=== PATIENT | female | born 1955 | race Caucasian/White ===

== ENCOUNTER 2017-07-10 12:24 | Inpatient (IN) | payer MEDICAID, SELFPAY ==
[2017-07-10] VITALS (14 sets, daily range): BP systolic 95–176; BP diastolic 57–115; PULSE 58–78; RESP 15–22; TEMP 36.6–36.7; O2SAT 92–100; BMI 22.5; BMI 22.6; BMI 23.3
--- NOTE | 2017-07-10 13:05 | EKG12_ITS ---
Test Reason : GEN ILLNESS Blood Pressure : / mmHG Vent. Rate : 078 BPM Atrial Rate : 078 BPM P-R Int : 140 ms QRS Dur : 092 ms QT Int : 360 ms P-R-T Axes : 077 -01 111 degrees QTc Int : 410 ms Normal sinus rhythm Lateral infarct , age undetermined Inferior infarct , age undetermined ST & T wave abnormality, consider anterior ischemia Abnormal ECG Confirmed by BETI BALLESTEROS, NATHAN ([id number]), website/blog editor MARGARET HUBBARD ([id number]) on 07/13/2017 2:49:39 PM Referred By: GET Confirmed By:NATHAN BANG MD
--- NOTE | 2017-07-10 13:14 | PCA ---
NO OLD EKG
[2017-07-10 13:31] LABS: Mucous, Urine 0 SEEN /hpf (<or=2+)
[2017-07-10 13:35] LABS: Color, Urine Yellow (Yellow); Glucose, Dipstick 1000 mg/dl (Normal); Ketone-Dipstick Negative (Negative); Leukocyte Esterase-Dipstick 25 /ul (Negative); Nitrite-Dipstick Negative (Negative); Occult Blood-Urine 250 /ul (Negative); Protein-Dipstick 500 mg/dl (Negative); Urine Bilirubin Dipstick Negative (Negative); Urine Clarity Clear (Clear); Urine Urobilinogen Normal (Normal)
[2017-07-10 13:40] LABS: Bedside Glucose > 500 mg/dL (70-110)
[2017-07-10 13:41] LABS: Bacteria RARE /hpf (None Seen); Red Blood Cells-Urine 5-10 SEEN /hpf (0-5); Squamous Epithelial Cells - UA 0-5 SEEN /hpf (5-10); White Blood Cells 0-5 SEEN /hpf (0-5)
[2017-07-10 13:50] LABS: AST(SGOT) 19 U/L (15-37); Alanine Aminotransfer ALT/SGPT 15 U/L (13-56); Albumin, Serum 2.8 g/dL (3.2-5.0); Alkaline Phosphatase 122 U/L (45-117); Bilirubin, Direct 0.11 mg/dL (0.00-0.30); Globulin 3.2 g/dL (2.2-4.2)
[2017-07-10 13:59] LABS: Absolute Lymphocyte Count 0.99 X10^3/ul (0.83-4.51); Absolute Neutrophil Count 6.1 X10^3/uL (2.0-7.7); Anion Gap 8 (5-15); BUN 60 mg/dL (7-18); BUN/Creat Ratio 33.7 RATIO (10-20); Basophil# 0.02 X10^3/uL; Basophil% 0.2 % (0-1); Chloride 91 mmol/L (98-107); Creatinine, Serum 1.78 mg/dL (0.55-1.02); EST Glomerular Filtration Rate 31 mL/min (>60); Eosinophil# 0.11 X10^3/uL; Eosinophils% 1.3 % (0-5); Est Glom Filt Rate - Afr Amer 37 mL/min (>60); Estimated Creatinine Clearance 23.24 ml/min; Glucose 844 mg/dL (74-106); Hemoglobin 14.2 g/dl (12.0-15.0); Lymphocyte # 0.99 X10^3/ul (4.0); Lymphocyte % 11.9 % (19-41); Mean Corp Hgb Conc 34.6 g/gl (32-36); Mean Corpuscular Hgb 30.4 pg (27.0-32.0); Mean Corpuscular Volume 87.8 fL (81-99); Mean Platelet Vol. 10.1 fl (6.2-12.0); Monocyte# 0.97 X10^3/uL; Monocyte% 11.7 % (0-10); Neutrophil # 6.14 X10^3/uL (2.7-7.7); Neutrophil % 74.1 % (47-70); Platelet Count 120 K/mm3 (150-450); Potassium 5.5 mmol/L (3.5-5.1); RBC Distribution Width CV 12.2 % (11.6-14.6); RBC Distribution Width SD 38.9 fl (35.1-43.9); Red Blood Count 4.67 M/mm3 (4.2-5.4); Sodium Level 121 mmol/L (136-145); White Blood Count 8.3 K/mm3 (4.4-11.0)
--- NOTE | 2017-07-10 13:59 | ED.RN ---
lab called glucose [address] lawrence
[2017-07-10 14:00] LABS: POSITIVE COUNT NO; POSITIVE DIFFERENTIAL NO; POSITIVE MORPHOLOGY NO
--- NOTE | 2017-07-10 14:11 | ED.VISSUMM ---
- ER Visit Summary Date of Service: 07/10/17 Chief Complaint: Several vague symptoms and high blood sugar History of Present Illness: The patient is a 62 F resents because she is not felt well. She reports dyspnea on exertion for the past couple of days as well as shortness of breath at rest. She also complains of swelling of her lower extremities. She denies any chest discomfort of any type. She denies fever, chills night sweats. Does complain of blurred vision today. She does complain of polyuria, polydipsia, nocturia and urgency. She is uncertain whether she has had weight loss. She denies orthopnea or PND. She denies any double vision or loss of vision. She denies runny nose, postnasal drainage, sore throat or earache. She denies any abdominal pain. She denies hematemesis, melena hematochezia. She has not seen a physician in 20 years. She is scheduled to see Dr. Godoy in the future. She states she is diet-controlled diabetic and has history of hypertension. Past surgical history cholecystectomy, hysterectomy and ?2. Physical Examination: Is an thin elderly woman who appears in no obvious distress. Blood pressure is 158/83. HEENT exam is markable dry mucosa. Heart is regular without murmur, gallop or rub. S1 and S2 are normal. Lungs are clear to auscultation with good movement of air bilaterally. Abdomen is soft and nontender. There is no guarding or peritoneal findings. There is no palpable pulsatile mass. There is no abdominal bruit. Moraes sign is negative. Negative Rovsing sign. There is no evidence of inguinal or umbilical hernia. There are well-healed scars noted. She does have pitting edema to the mid thigh. Patient is alert and oriented ?3. Motor is 5 over 5. Sensory is intact. DTRs are symmetric with no clonus or Babinski sign. Cranial 2 through 12 are intact. Cerebellar testing is normal. Test Results: She reveals ST-T wave changes V1 and V2 and artifact. Rhythm is sinus with a rate of 78. CBC is unremarkable. BMP is remarkable for sodium 121 and represents a pseudohyponatremia secondary to glucose of 844. BUN is 60 with a creatinine 1.78. UA is remarkable for leukoesterase and blood negative nitrites and no pyuria. Troponin is 2.39. Emergency Department Course and Treatment: Patient has symptoms of hyperglycemia. Will initiate DKA workup and will rule out cardiac ischemia based on her symptoms. Treatment Plan: The hospitalist was made aware of patient. Will start insulin drip. Case was discussed with Dr. Case. He requested Lovenox 1 mg/kg since there is no contraindication. Disposition: Admit ICU/CCU Impression: 1. Non-ST elevation ND 2. Hyperglycemia, blood sugar 844 3. Prerenal azotemia with AK I 4. Dehydration 5. Pseudohyponatremia This note was generated with [employer] dictation software. It may contain incorrect words, spelling, and punctuation that were not noted in review of the chart prior to signing ED Disposition - Plan for ED Patient: Chief Complaint: General Illness Referrals: Care Physician,No Primary [Primary Care Provider] -
--- NOTE | 2017-07-10 14:18 | RAD_ITS ---
STUDY: X-RAY CHEST REASON FOR EXAM: Female, 62 years old. Weakness. Visual disturbance. Hyperglycemia. TECHNIQUE: Single AP portable view of the chest. COMPARISON: None. FINDINGS: EKG electrodes are seen. Hyperinflation. The lungs are clear. There is no demonstrated pleural abnormality. Normal size heart. Normal mediastinum and jace. Normal visualized pulmonary arteries. There is atherosclerotic calcification of the aortic arch with tortuosity. Normal visualized thoracic spine. Normal visualized ribs, clavicles, and shoulders. There is no demonstrated abnormality of the visualized soft tissue structures of the upper abdomen. RAD/Chest 1 View (Portable) IMPRESSION: Hyperinflation. The lungs are clear. Electronically Signed: David Flores MD at 14:46 EST Tel [phone], Service support ,
[2017-07-10] MEDS: 0.9% Normal Saline 1,000 ML 1000 ML IV (14:46)
--- NOTE | 2017-07-10 14:47 | ED.RN ---
per dr joseph insulin drip stopped until 1 full liter of fluid is infused
--- NOTE | 2017-07-10 15:55 | PCM.HP.STD ---
Problem List (1) Hypertension Status: Chronic (2) Type 2 diabetes mellitus Status: Chronic History of Present Illness Date of Admission: 07/10/17 Chief Complaint: Not feeling well The patient is a 62 year old F who presents the ER with general non-specific complaints of not feeling well. She states she has noticed increased shortness of breath with exertion, swelling of lower extremities and fatigue. She has not seen a doctor in over 20 years. She states she saw an search analyst in the past who told her she might have diabetes. She then checked her blood sugars at home and states they normally run in the 200s and states her diabetes has been diet controlled. She has not seen a doctor due to insurance reasons. She now has Medicaid and is scheduled to establish with Dr. Godoy, PCP. She denies chest pain. Denies nausea, vomiting. Denies recent illness. States she has intermittent diarrhea. She states she was told she had high blood pressure in the past but was never on any medication regimen. Yesterday she reports her blood sugar was not able to be read by her home machine. She reports blurred vision and not feeling right during this time. This was concerning to her and she decided to seek medical attention. She denies any other prior medical history. She is a pack per day smoker and has smoked for approximately 40 years. Past Medical History Past Medical History (Chronic Problems): Chronic Problems Hypertension (Chronic) Type 2 diabetes mellitus (Chronic) Allergies ibuprofen Allergy (Verified 07/10/17 12:30) Anaphylaxis Iodinated Contrast- Oral and IV Dye [CONTRASTS] Allergy (Verified 07/10/17 12:30) Anaphylaxis Penicillins Allergy (Verified 07/10/17 12:30) Hives Home Medications: Ambulatory Orders Medication Instructions Recorded NK [NK] 07/10/17 Surgical History: cholecystectomy, hysterectomy Psychiatric History: No pertinent psych hx OSD CLERK History: No pertinent OSD CLERK history Lives: With Family Smoking Status: Current every day smoker Tobacco Use: Cigarettes - 1 PPD Alcohol: None Drugs: None - *Family History Maternal History Items: High Cholesterol, Hypertension Paternal History Items: Diabetes Review of Systems Constitutional: Reports: Fatigue. Denies: Chills, Fever Eyes: Reports: Blurred vision HEENT: Denies: Head Aches, Sinus Congestion, Sinus Drainage Cardiovascular: Reports: Edema - BLLE. Denies: Chest Pain, Palpitations Respiratory: Reports: Shortness of breath upon exertion. Denies: Cough, Sputum production, Wheezing Gastrointestinal: Reports: Diarrhea - Intermittent. Denies: Abdominal Pain, Constipation, Nausea, Melena, Vomiting Genitourinary: Denies: Dysuria, Frequency Musculoskeletal: Denies: Joint Pain, Joint Tenderness Neurological: Denies: Numbness, Tingling, Focal weakness Psychiatric: Denies: Anxiety, Depression, Homicidal Ideations, Suicidal Ideations Hematologic/ Lymphatic: Denies: Easy Bruising, Easy Bleeding VTE Information - Inpt Only VTE Present on Admission: No VTE Mechan Device Prophylaxis: None VTE Pharm Prophylaxis ordered?: Yes - Physical Exam General: Alert, Oriented x3, Cooperative, No apparent distress HEENT: Atraumatic, PERRLA, EOMI, Normocephalic Oral: Dry Mucosa, - - Poor dentition Neck: Supple, No JVD, Negative Carotid Bruits Lungs: Clear to auscultation, Diminished Cardiovascular: Regular rate, Regular Rhythm, Normal S1, Normal S2, No murmurs Abdomen: Bowel Sounds Present, Soft, Non Tender, Non-Distended Extremities: No clubbing, No cyanosis, Edema - +1 Bilateral lower extremity edema which extends to mid thigh Skin: No rashes, No breakdown Musculoskeletal: No Tenderness to Palpation of Joints or Extremities Neurological: Cranial nerves II-XII grossly intact, Neuro grossly intact Psych/Mental Status: Normal Affect, Appropriate Vital Signs Temp Pulse Resp BP Pulse Ox 98.0 F 77 18 176/115 H 97 07/10/17 12:25 07/10/17 15:50 07/10/17 15:50 07/10/17 15:50 07/10/17 15:50 Oxygen Delivery Method Room Air Weight: 52.4 kg Body Mass Index (BMI) 22.5 Finger Stick Blood Glucose 600 Laboratory Tests Past 24 Hrs 07/10/17 07/10/17 07/10/17 13:20 13:20 13:20 WBC 8.3 RBC 4.67 Hgb 14.2 Hct 41.0 MCV 87.8 MCH 30.4 MCHC 34.6 RDW 12.2 RDW Differential 38.9 Plt Count 120 L MPV 10.1 Immature Gran % (Auto) 0.800 Neut % (Auto) 74.1 H Lymph % (Auto) 11.9 L [place] % (Auto) 11.7 H Eos % (Auto) 1.3 Baso % (Auto) 0.2 Absolute Neuts (auto) 6.1 Absolute Lymphs (auto) 0.99 Total Counted Not Reportable Sodium 121 L Potassium 5.5 H Chloride 91 L Carbon Dioxide 22.0 Anion Gap 8 BUN 60 H Creatinine 1.78 H Estim Creat Clear Calc 23.24 Est GFR (MDRD) Af Amer 37 L Est GFR (MDRD) Non-Af 31 L BUN/Creatinine Ratio 33.7 H Glucose 844 H* Calcium 8.0 L Total Bilirubin Direct Bilirubin AST ALT Alkaline Phosphatase Troponin I 2.39 H* Total Protein Albumin Globulin Urine Color Urine Clarity Urine pH Ur Specific [place] Urine Protein Urine Glucose (UA) Urine Ketones Urine Occult Blood Urine Nitrite Urine Bilirubin Urine Urobilinogen Ur Leukocyte Esterase Urine RBC Urine WBC Ur Squamous Epith Cells Urine Bacteria Urine Mucus Acetone Level NEGATIVE 07/10/17 07/10/17 13:20 13:20 WBC RBC Hgb Hct MCV MCH MCHC RDW RDW Differential Plt Count MPV Immature Gran % (Auto) Neut % (Auto) Lymph % (Auto) [place] % (Auto) Eos % (Auto) Baso % (Auto) Absolute Neuts (auto) Absolute Lymphs (auto) Total Counted Sodium Potassium Chloride Carbon Dioxide Anion Gap BUN Creatinine Estim Creat Clear Calc Est GFR (MDRD) Af Amer Est GFR (MDRD) Non-Af BUN/Creatinine Ratio Glucose Calcium Total Bilirubin 0.30 Direct Bilirubin 0.11 AST 19 ALT 15 Alkaline Phosphatase 122 H Troponin I Total Protein 6.0 L Albumin 2.8 L Globulin 3.2 Urine Color Yellow Urine Clarity Clear Urine pH 6.0 Ur Specific [place] 1.010 Urine Protein 500 H Urine Glucose (UA) 1000 H Urine Ketones Negative Urine Occult Blood 250 H Urine Nitrite Negative Urine Bilirubin Negative Urine Urobilinogen Normal Ur Leukocyte Esterase 25 H Urine RBC 5-10 SEEN Urine WBC 0-5 SEEN Ur Squamous Epith Cells 0-5 SEEN Urine Bacteria RARE Urine Mucus 0 SEEN Acetone Level POC Glucose 07/10/17 13:35 POC Glucose > 500 H* Assessment/Plan 1. [id number] troponin 2.39. Patient denies chest pain. EKG in emergency room sinus rhythm with ST T changes. Cardiology consulted from ER. Trend enzymes. Lovenox weight-based 1 mg/kg. Plans for cardiac catheterization when glucose is stable. Check lipid panel in a.m. Initiate aspirin, statin, beta-oneal. Patient was loaded with Plavix ?1. Obtain echocardiogram. 2. Uncontrolled type 2 diabetes mellitus-not in DKA. Blood glucose 844 on admission. Insulin drip initiated in ER. Continue q. hour Accu-Cheks and insulin drip per protocol. Continue IV fluids. Nutrition consult. Check HA1C. Begin Levemir 20 units twice daily. 3. Suspected acute kidney injury-creatinine 1.78. No previous labs for comparison. Patient is dehydrated with a BUN/ creat ratio of 33. Continue IVF. Monitor BMP. 4. Hyponatremia-suspected pseudohyponatremia secondary to hyperglycemia. Monitor BMP. Continue IV fluids. 5. Hypertension-elevated on admission 150-170 systolically. Not on home regimen. Patient was started on metoprolol 25 mg twice daily. Continue to monitor. DVT [id number] Lovenox subcu 1mg/kg This patient was seen by NICHOLAS Toledo under the supervision of Dr. Chavez.
--- NOTE | 2017-07-10 16:04 | NURSING ---
ICU 4 ACUTE NSTEMI, HYPEROEOLAR NON KETOTIC HYPERGLYCEMIA HERO
--- NOTE | 2017-07-10 16:21 | HP.PCM_ITS ---
Problem List (1) Hypertension Status: Chronic (2) Type 2 diabetes mellitus Status: Chronic History of Present Illness Date of Admission: 07/10/17 Chief Complaint: Not feeling well The patient is a 62 year old F who presents the ER with general non-specific complaints of not feeling well. She states she has noticed increased shortness of breath with exertion, swelling of lower extremities and fatigue. She has not seen a doctor in over 20 years. She states she saw an coroner transport technician in the past who told her she might have diabetes. She then checked her blood sugars at home and states they normally run in the 200s and states her diabetes has been diet controlled. She has not seen a doctor due to insurance reasons. She now has Medicaid and is scheduled to establish with Dr. Godoy, PCP. She denies chest pain. Denies nausea, vomiting. Denies recent illness. States she has intermittent diarrhea. She states she was told she had high blood pressure in the past but was never on any medication regimen. Yesterday she reports her blood sugar was not able to be read by her home machine. She reports blurred vision and not feeling right during this time. This was concerning to her and she decided to seek medical attention. She denies any other prior medical history. She is a pack per day smoker and has smoked for approximately 40 years. Past Medical History Past Medical History (Chronic Problems): Chronic Problems Hypertension (Chronic) Type 2 diabetes mellitus (Chronic) Allergies ibuprofen Allergy (Verified 07/10/17 12:30) Anaphylaxis Iodinated Contrast- Oral and IV Dye [CONTRASTS] Allergy (Verified 07/10/17 12:30 ) Anaphylaxis Penicillins Allergy (Verified 07/10/17 12:30) Hives Home Medications: Ambulatory Orders Medication Instructions Recorded NK [NK] 07/10/17 Surgical History: cholecystectomy, hysterectomy Psychiatric History: No pertinent psych hx CORN CHIP MAKER History: No pertinent CORN CHIP MAKER history Lives: With Family Smoking Status: Current every day smoker Tobacco Use: Cigarettes - 1 PPD Alcohol: None Drugs: None - *Family History Maternal History Items: High Cholesterol, Hypertension Paternal History Items: Diabetes Review of Systems Constitutional: Reports: Fatigue. Denies: Chills, Fever Eyes: Reports: Blurred vision HEENT: Denies: Head Aches, Sinus Congestion, Sinus Drainage Cardiovascular: Reports: Edema - BLLE. Denies: Chest Pain, Palpitations Respiratory: Reports: Shortness of breath upon exertion. Denies: Cough, Sputum production, Wheezing Gastrointestinal: Reports: Diarrhea - Intermittent. Denies: Abdominal Pain, Constipation, Nausea, Melena, Vomiting Genitourinary: Denies: Dysuria, Frequency Musculoskeletal: Denies: Joint Pain, Joint Tenderness Neurological: Denies: Numbness, Tingling, Focal weakness Psychiatric: Denies: Anxiety, Depression, Homicidal Ideations, Suicidal Ideations Hematologic/ Lymphatic: Denies: Easy Bruising, Easy Bleeding VTE Information - Inpt Only VTE Present on Admission: No VTE Mechan Device Prophylaxis: None VTE Pharm Prophylaxis ordered?: Yes - Physical Exam General: Alert, Oriented x3, Cooperative, No apparent distress HEENT: Atraumatic, PERRLA, EOMI, Normocephalic Oral: Dry Mucosa, - - Poor dentition Neck: Supple, No JVD, Negative Carotid Bruits Lungs: Clear to auscultation, Diminished Cardiovascular: Regular rate, Regular Rhythm, Normal S1, Normal S2, No murmurs Abdomen: Bowel Sounds Present, Soft, Non Tender, Non-Distended Extremities: No clubbing, No cyanosis, Edema - +1 Bilateral lower extremity edema which extends to mid thigh Skin: No rashes, No breakdown Musculoskeletal: No Tenderness to Palpation of Joints or Extremities Neurological: Cranial nerves II-XII grossly intact, Neuro grossly intact Psych/Mental Status: Normal Affect, Appropriate Vital Signs Temp Pulse Resp BP Pulse Ox 98.0 F 77 18 176/115 H 97 07/10/17 12:25 07/10/17 15:50 07/10/17 15:50 07/10/17 15:50 07/10/17 15:50 Oxygen Delivery Method Room Air Weight: 52.4 kg Body Mass Index (BMI) 22.5 Finger Stick Blood Glucose 600 Laboratory Tests Past 24 Hrs 07/10/17 07/10/17 07/10/17 13:20 13:20 13:20 WBC 8.3 RBC 4.67 Hgb 14.2 Hct 41.0 MCV 87.8 MCH 30.4 MCHC 34.6 RDW 12.2 RDW Differential 38.9 Plt Count 120 L MPV 10.1 Immature Gran % (Auto) 0.800 Neut % (Auto) 74.1 H Lymph % (Auto) 11.9 L [place] % (Auto) 11.7 H Eos % (Auto) 1.3 Baso % (Auto) 0.2 Absolute Neuts (auto) 6.1 Absolute Lymphs (auto) 0.99 Total Counted Not Reportable Sodium 121 L Potassium 5.5 H Chloride 91 L Carbon Dioxide 22.0 Anion Gap 8 BUN 60 H Creatinine 1.78 H Estim Creat Clear Calc 23.24 Est GFR (MDRD) Af Amer 37 L Est GFR (MDRD) Non-Af 31 L BUN/Creatinine Ratio 33.7 H Glucose 844 H* Calcium 8.0 L Total Bilirubin Direct Bilirubin AST ALT Alkaline Phosphatase Troponin I 2.39 H* Total Protein Albumin Globulin Urine Color Urine Clarity Urine pH Ur Specific [place] Urine Protein Urine Glucose (UA) Urine Ketones Urine Occult Blood Urine Nitrite Urine Bilirubin Urine Urobilinogen Ur Leukocyte Esterase Urine RBC Urine WBC Ur Squamous Epith Cells Urine Bacteria Urine Mucus Acetone Level NEGATIVE 07/10/17 07/10/17 13:20 13:20 WBC RBC Hgb Hct MCV MCH MCHC RDW RDW Differential Plt Count MPV Immature Gran % (Auto) Neut % (Auto) Lymph % (Auto) [place] % (Auto) Eos % (Auto) Baso % (Auto) Absolute Neuts (auto) Absolute Lymphs (auto) Total Counted Sodium Potassium Chloride Carbon Dioxide Anion Gap BUN Creatinine Estim Creat Clear Calc Est GFR (MDRD) Af Amer Est GFR (MDRD) Non-Af BUN/Creatinine Ratio Glucose Calcium Total Bilirubin 0.30 Direct Bilirubin 0.11 AST 19 ALT 15 Alkaline Phosphatase 122 H Troponin I Total Protein 6.0 L Albumin 2.8 L Globulin 3.2 Urine Color Yellow Urine Clarity Clear Urine pH 6.0 Ur Specific [place] 1.010 Urine Protein 500 H Urine Glucose (UA) 1000 H Urine Ketones Negative Urine Occult Blood 250 H Urine Nitrite Negative Urine Bilirubin Negative Urine Urobilinogen Normal Ur Leukocyte Esterase 25 H Urine RBC 5-10 SEEN Urine WBC 0-5 SEEN Ur Squamous Epith Cells 0-5 SEEN Urine Bacteria RARE Urine Mucus 0 SEEN Acetone Level POC Glucose 07/10/17 13:35 POC Glucose > 500 H* Assessment/Plan 1. [id number] troponin 2.39. Patient denies chest pain. EKG in emergency room sinus rhythm with ST T changes. Cardiology consulted from ER. Trend enzymes. Lovenox weight-based 1 mg/kg. Plans for cardiac catheterization when glucose is stable. Check lipid panel in a.m. Initiate aspirin, statin, beta-oneal. Patient was loaded with Plavix ?1. Obtain echocardiogram. 2. Uncontrolled type 2 diabetes mellitus-not in DKA. Blood glucose 844 on admission. Insulin drip initiated in ER. Continue q. hour Accu-Cheks and insulin drip per protocol. Continue IV fluids. Nutrition consult. Check HA1C. Begin Levemir 20 units twice daily. 3. Suspected acute kidney injury-creatinine 1.78. No previous labs for comparison. Patient is dehydrated with a BUN/ creat ratio of 33. Continue IVF. Monitor BMP. 4. Hyponatremia-suspected pseudohyponatremia secondary to hyperglycemia. Monitor BMP. Continue IV fluids. 5. Hypertension-elevated on admission 150-170 systolically. Not on home regimen. Patient was started on metoprolol 25 mg twice daily. Continue to monitor. DVT [id number] Lovenox subcu 1mg/kg This patient was seen by NICHOLAS Toledo under the supervision of Dr. Chavez.
--- NOTE | 2017-07-10 16:53 | ECHOD_ITS ---
Reason For Study: S/P NC Procedure This was a 2D Doppler, Color Flow transthoracic echocardiogram. Exam performed portable in ICU/CCU. Left Ventricle Normal LV size. Moderately severe segmental systolic dysfunction (see wall motion). The estimated ejection fraction is 30 %. [place] : Akinetic. Mid-anteroseptal : Akinetic. There is moderate to severe global hypokinesis of the left ventricle. Right Ventricle Normal RV size. Normal systolic function. Atria Normal left atrium. Normal right atrium. Mitral Valve Normal mitral valve. Mild (1+) eccentric mitral valve insufficiency. Tricuspid Valve Normal tricuspid valve. Mild (1+) tricuspid valve insufficiency. Pulmonary artery systolic pressure is 31 mmHg. Aortic Valve Trisinus/trileaflet aortic valve. Pulmonic Valve The pulmonic valve is not well visualized. Great Vessels Normal aortic root. The pulmonary artery is normal size. Normal inferior vena cava. Pericardium/Pleural No pericardial effusion. MMode/2D Measurements & Calculations LVIDd: 4.2 cm IVSd: 1.0 cm Ao root diam: 2.6 cm LVIDs: 3.4 cm LVPWd: 1.1 cm LA dimension: 4.0 cm RVDd: 2.7 cm FS: 20.5 % LAV(MOD-bp): 68.7 ml LA A4 area: 20.1 cm2 RA A4 area: 12.6 cm2 LAV(MOD-bp) Indexed: 45.6 ml/m2 LAV(MOD-sp2): 64.0 ml LAV(MOD-sp4): 62.9 ml Time Measurements MV dec time: 0.17 sec Doppler Measurements & Calculations MV E max quinn: 102.7 cm/sec Lat Peak E' Quinn: 7.3 cm/sec Med Peak E' [place]: 6.0 cm/sec MV A max quinn: 100.0 cm/sec E/E' lat: 14.0 E/E' med: 17.2 MV E/A: 1.0 Ao V2 max: 117.2 cm/sec LV V1 max: 74.0 cm/sec PA V2 max: 69.5 cm/sec Ao max P.5 mmHg LV V1 max P.2 mmHg TR max quinn: 254.7 cm/sec TR max P.1 mmHg Interpretation Summary Normal LV size. Moderately severe segmental systolic dysfunction (see wall motion). The estimated ejection fraction is 30 %. Mild (1+) eccentric mitral valve insufficiency. Pulmonary artery systolic pressure is 31 mmHg. Ordering Physician: Abdiaziz Chavez Referring Physician: CAN PCP Performed By: Alcira Torres, GEOVANNI, RVT
[2017-07-10 17:20] LABS: Bedside Glucose > 500 mg/dL (70-110)
--- NOTE | 2017-07-10 17:39 | PCM.CONS.C ---
Reason for Consult Date of Consultation: 07/10/17 Reason for Consultation: Abnormal cardiac enzymes. History of Present Illness: The patient is a 62 year old F who presents the ER with general non-specific complaints of not feeling well. She states she has noticed increased shortness of breath with exertion, swelling of lower extremities and fatigue. She has not seen a doctor in over 20 years. She states she saw an return to factory clerk in the past who told her she might have diabetes. She then checked her blood sugars at home and states they normally run in the 200s and states her diabetes has been diet controlled. She denies chest pain. Denies nausea, vomiting. Denies recent illness. States she has intermittent diarrhea. She states she was told she had high blood pressure in the past but was never on any medication regimen. Yesterday she reports her blood sugar was not able to be read by her home machine. She reports blurred vision and not feeling right during this time. This was concerning to her and she decided to seek medical attention. Therefore presented to the emergency room and was noted to have a markedly abnormal blood sugar and EKG as well as cardiac enzymes. She has had no dizziness presyncope or syncope. Cardiology was called to assist in evaluation and management. 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 Denies: Fever, Night Sweats Cardiovascular: Reports: Shortness of Breath. Denies: Chest Discomfort, Orthopnea, PND, Peripheral Edema, Palpitations, Lightheadedness, Dizziness, Near Syncope, Syncope Respiratory: Denies: Cough, Sputum Production, Hemoptysis Gastrointestinal: Denies: Hematemesis, Hematochezia, Melena Genitourinary: Denies: Dysuria, Hematuria Skin: Denies: Rash Endocrine: Reports: Unexplained Weight Loss Subjectve: Middle aged lady in no apparent distress Objective: Vital Signs Temp Pulse Resp BP Pulse Ox 98.0 F 74 18 176/115 H 97 07/10/17 12:25 07/10/17 16:52 07/10/17 15:50 07/10/17 15:50 07/10/17 15:50 Oxygen Delivery Method Room Air Weight: 118 lb 13.266 oz Body Mass Index (BMI) 23.3 General: Awake, Alert, Oriented x 3 HEENT: PERRL, EOMI, Sclera Non Icteric Neck: Supple, Good ROM, No Lymph Node Enlargement Lungs: Clear to auscultation Cardiovascular: Regular Rhythm, Normal S1, Normal S2, No Murmurs, No Rubs, No Gallops Vascular: No Carotid Bruits, Normal Femoral Pulses, Normal Radial Pulses, Normal Dorsalis Pedal Pulse, Normal Posterior Tibial Pulses Abdomen: Bowel Sounds Present, Soft, Non Tender, No HSM, No Organomegaly Extremities: No Cyanosis, No Clubbing, No edema Neurological: No Focal Motor or Sensory Deficit Rhythm: EKG: Normal sinus rhythm with T-wave inversions noted in V1 and V2. Assessment/Plan 1. Non-ST elevation myocardial infarction. She presents with uncontrolled diabetes mellitus and is noted to have EKG changes as well as cardiac enzymes compatible with a non-ST elevation myocardial infarction. At this time the primary aim will be to control her blood sugar appropriately hydrate her until her renal function has improved and stabilized and then we will consider a cardiac catheterization. In the meantime she is being loaded with Plavix, treated with aspirin, and beta-oneal. She has listed a dye allergy which she said she experienced 40 years ago. In all likelihood it was not low molecular weight based contrast agent. Recommendations would be made in a.m. Regarding timing of the cardiac catheterization. The above has been discussed with the patient as well as the nursing staff. 2. Hypertension Her blood pressure is noted to be uncontrolled at this time. After appropriate hydration she will be started on an RADHA inhibitor. At this particular time the beta-oneal can be initiated and she can be followed. Thank you for allowing me to participate in the care of your patient. Please don't hesitate to call if any issues arise
--- NOTE | 2017-07-10 17:47 | CON.PCM_ITS ---
Reason for Consult Date of Consultation: 07/10/17 Reason for Consultation: Abnormal cardiac enzymes. History of Present Illness: The patient is a 62 year old F who presents the ER with general non-specific complaints of not feeling well. She states she has noticed increased shortness of breath with exertion, swelling of lower extremities and fatigue. She has not seen a doctor in over 20 years. She states she saw an parcel post clerk in the past who told her she might have diabetes. She then checked her blood sugars at home and states they normally run in the 200s and states her diabetes has been diet controlled. She denies chest pain. Denies nausea, vomiting. Denies recent illness. States she has intermittent diarrhea. She states she was told she had high blood pressure in the past but was never on any medication regimen. Yesterday she reports her blood sugar was not able to be read by her home machine. She reports blurred vision and not feeling right during this time. This was concerning to her and she decided to seek medical attention. Therefore presented to the emergency room and was noted to have a markedly abnormal blood sugar and EKG as well as cardiac enzymes. She has had no dizziness presyncope or syncope. Cardiology was called to assist in evaluation and management. 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 Denies: Fever, Night Sweats Cardiovascular: Reports: Shortness of Breath. Denies: Chest Discomfort, Orthopnea, PND, Peripheral Edema, Palpitations, Lightheadedness, Dizziness, Near Syncope, Syncope Respiratory: Denies: Cough, Sputum Production, Hemoptysis Gastrointestinal: Denies: Hematemesis, Hematochezia, Melena Genitourinary: Denies: Dysuria, Hematuria Skin: Denies: Rash Endocrine: Reports: Unexplained Weight Loss Subjectve: Middle aged lady in no apparent distress Objective: Vital Signs Temp Pulse Resp BP Pulse Ox 98.0 F 74 18 176/115 H 97 07/10/17 12:25 07/10/17 16:52 07/10/17 15:50 07/10/17 15:50 07/10/17 15:50 Oxygen Delivery Method Room Air Weight: 118 lb 13.266 oz Body Mass Index (BMI) 23.3 General: Awake, Alert, Oriented x 3 HEENT: PERRL, EOMI, Sclera Non Icteric Neck: Supple, Good ROM, No Lymph Node Enlargement Lungs: Clear to auscultation Cardiovascular: Regular Rhythm, Normal S1, Normal S2, No Murmurs, No Rubs, No Gallops Vascular: No Carotid Bruits, Normal Femoral Pulses, Normal Radial Pulses, Normal Dorsalis Pedal Pulse, Normal Posterior Tibial Pulses Abdomen: Bowel Sounds Present, Soft, Non Tender, No HSM, No Organomegaly Extremities: No Cyanosis, No Clubbing, No edema Neurological: No Focal Motor or Sensory Deficit Rhythm: EKG: Normal sinus rhythm with T-wave inversions noted in V1 and V2. Assessment/Plan 1. Non-ST elevation myocardial infarction. She presents with uncontrolled diabetes mellitus and is noted to have EKG changes as well as cardiac enzymes compatible with a non-ST elevation myocardial infarction. At this time the primary aim will be to control her blood sugar appropriately hydrate her until her renal function has improved and stabilized and then we will consider a cardiac catheterization. In the meantime she is being loaded with Plavix, treated with aspirin, and beta- oneal. She has listed a dye allergy which she said she experienced 40 years ago. In all likelihood it was not low molecular weight based contrast agent. Recommendations would be made in a.m. Regarding timing of the cardiac catheterization. The above has been discussed with the patient as well as the nursing staff. 2. Hypertension Her blood pressure is noted to be uncontrolled at this time. After appropriate hydration she will be started on an RADHA inhibitor. At this particular time the beta-oneal can be initiated and she can be followed. Thank you for allowing me to participate in the care of your patient. Please don't hesitate to call if any issues arise
[2017-07-10 17:48] LABS: Hemoglobin A1c 14.9 % (4.2-6.3)
[2017-07-10 17:53] LABS: Anion Gap 6 (5-15); BUN 57 mg/dL (7-18); BUN/Creat Ratio 36.1 RATIO (10-20); Calcium,Total 7.5 mg/dL (8.5-10.1); Chloride 98 mmol/L (98-107); Creatinine, Serum 1.58 mg/dL (0.55-1.02); EST Glomerular Filtration Rate 35 mL/min (>60); Est Glom Filt Rate - Afr Amer 42 mL/min (>60); Estimated Creatinine Clearance 31.01 ml/min; Glucose 670 mg/dL (74-106); Potassium 4.9 mmol/L (3.5-5.1); Sodium Level 127 mmol/L (136-145)
[2017-07-10] MEDS: Aspirin 81 MG TAB.CHEW PO (18:03)
[2017-07-10] MEDS: 0.9% Normal Saline 1,000 ML 999 ML IV ×2 (18:03→18:54)
[2017-07-10] MEDS: Clopidogrel Bisulfate 300 MG Tablet PO (18:04)
[2017-07-10] MEDS: Metoprolol Tartrate 25 MG Tablet PO (18:06)
[2017-07-10] MEDS: 0.9% Normal Saline 1,000 ML 175 ML IV (20:00)
[2017-07-10 20:05] LABS: Bedside Glucose 442 mg/dL (70-110)
[2017-07-10 20:13] LABS: M R Staph aureus DNA By PCR Negative (Negative); Probe Check PASS; Specimen Processing Control PASS
[2017-07-10 20:53] LABS: Anion Gap 9 (5-15); BUN 55 mg/dL (7-18); BUN/Creat Ratio 38.5 RATIO (10-20); Chloride 103 mmol/L (98-107); Creatinine, Serum 1.43 mg/dL (0.55-1.02); EST Glomerular Filtration Rate 39 mL/min (>60); Est Glom Filt Rate - Afr Amer 48 mL/min (>60); Estimated Creatinine Clearance 34.26 ml/min; Glucose 395 mg/dL (74-106); Potassium 4.1 mmol/L (3.5-5.1); Sodium Level 133 mmol/L (136-145)
[2017-07-10] MEDS: Atorvastatin Calcium 40 MG Tablet PO (21:05)
[2017-07-10] MEDS: Acetaminophen 325 MG Tablet 650 MG PO (21:06)
[2017-07-11] VITALS (29 sets, daily range): BP systolic 98–151; BP diastolic 58–100; PULSE 56–76; RESP 13–26; TEMP 36.5–37.6; O2SAT 97–100
[2017-07-11] MEDS: 0.9% Normal Saline 1,000 ML 175 ML IV ×3 (01:56→14:24)
[2017-07-11] MEDS: 0.9% NaCl Peripheral Flush Adult/Peds IV ×2 (02:01→12:18)
[2017-07-11 02:26] LABS: Bedside Glucose 127 mg/dL (70-110)
[2017-07-11 04:02] LABS: Absolute Lymphocyte Count 1.82 X10^3/ul (0.83-4.51); Basophil# 0.03 X10^3/uL; Basophil% 0.4 % (0-1); Eosinophil# 0.24 X10^3/uL; Eosinophils% 2.9 % (0-5); Hematocrit 32.4 % (37-47); International Normalized Ratio 1.2; Lymphocyte # 1.82 X10^3/ul (4.0); Lymphocyte % 22.1 % (19-41); Mean Corpuscular Volume 88.8 fL (81-99); Monocyte# 1.09 X10^3/uL; Monocyte% 13.2 % (0-10); Neutrophil % 60.7 % (47-70); Platelet Count 118 K/mm3 (150-450); Prothrombin Time (Protime)PT. 15.5 SECONDS (11.7-14.9); RBC Distribution Width SD 37.9 fl (35.1-43.9); Red Blood Count 3.65 M/mm3 (4.2-5.4); White Blood Count 8.2 K/mm3 (4.4-11.0)
[2017-07-11 04:03] LABS: Hemoglobin 11.4 g/dl (12.0-15.0); Mean Corp Hgb Conc 35.2 g/gl (32-36); Mean Corpuscular Hgb 31.2 pg (27.0-32.0); POSITIVE COUNT NO; POSITIVE DIFFERENTIAL NO; POSITIVE MORPHOLOGY NO; Partial Thromboplast Time 25.4 Seconds (24.1-36.2)
--- NOTE | 2017-07-11 04:30 | NURSING ---
Bladder scan complete and showing >999ml. Pt up to bedside commode and voids 300ml, repeat bladder scan again showing >999ml. Straight cath performed and 1900 ml of cloudy jennifer urine is drained.
[2017-07-11 04:44] LABS: Anion Gap 10 (5-15); BUN 56 mg/dL (7-18); BUN/Creat Ratio 38.1 RATIO (10-20); Calcium,Total 7.3 mg/dL (8.5-10.1); Chloride 104 mmol/L (98-107); Cholesterol 178 mg/dL (200); Creatinine, Serum 1.47 mg/dL (0.55-1.02); EST Glomerular Filtration Rate 38 mL/min (>60); Est Glom Filt Rate - Afr Amer 46 mL/min (>60); Estimated Creatinine Clearance 33.33 ml/min; Glucose 120 mg/dL (74-106); High Density Lipoprotein 33 mg/dL; Potassium 4.3 mmol/L (3.5-5.1); Sodium Level 134 mmol/L (136-145); Triglycerides 275 mg/dL; Very Low Density Lipoprotein 55 mg/dL (5-40)
--- NOTE | 2017-07-11 05:55 | EKG12_ITS ---
Test Reason : AM Blood Pressure : / mmHG Vent. Rate : 059 BPM Atrial Rate : 059 BPM P-R Int : 144 ms QRS Dur : 090 ms QT Int : 432 ms P-R-T Axes : 081 044 112 degrees QTc Int : 427 ms Sinus bradycardia Low voltage QRS ST & T wave abnormality, consider anterior ischemia Abnormal ECG When compared with ECG of 10-JUL-2017 13:21, MANUAL COMPARISON REQUIRED, DATA IS UNCONFIRMED Confirmed by BETI BALLESTEROS, NATHAN ([id number]), senior technical editor MARGARET HUBBARD ([id number] on 07/13/2017 3:25:18 PM Referred By: YADIRA Confirmed By:NATHAN BANG MD
--- NOTE | 2017-07-11 06:43 | PCM.PN.CARD ---
Subjectve: Patient was seen and evaluated and appears to be doing well with no complaints overnight. Objective: Vital Signs Temp Pulse Resp BP Pulse Ox 97.7 F L 56 L 20 H 98/61 97 07/11/17 00:00 07/11/17 03:00 07/11/17 03:00 07/11/17 03:00 07/11/17 03:00 Oxygen Delivery Method Room Air Weight: 121 lb 4.068 oz Body Mass Index (BMI) 23.3 Intake and Output for Last 24 Hours 07/09/17 07/10/17 07/11/17 23:59 23:59 23:59 Intake Total 1050 / 1050 2035 / 2035 Output Total 2350 / 2350 Balance 1050 / 1050 -315 / -315 General: Awake, Alert, Oriented x 3 HEENT: PERRL, EOMI, Sclera Non Icteric Neck: Supple, Good ROM, No Lymph Node Enlargement Lungs: Clear to auscultation Cardiovascular: Regular Rhythm, Normal S1, Normal S2, No Murmurs, No Rubs, No Gallops Vascular: No Carotid Bruits, Normal Femoral Pulses, Normal Radial Pulses, Normal Dorsalis Pedal Pulse, Normal Posterior Tibial Pulses Abdomen: Bowel Sounds Present, Soft, Non Tender, No HSM, No Organomegaly Extremities: No Cyanosis, No Clubbing, No edema Neurological: No Focal Motor or Sensory Deficit 07/10/17 17:22: Troponin I 2.58 H* 07/10/17 20:13: Sodium 133 L, Potassium 4.1, Chloride 103, Carbon Dioxide 21.0, Anion Gap 9, BUN 55 H, Creatinine 1.43 H, Est GFR (MDRD) Af Amer 48 L, Est GFR (MDRD) Non-Af 39 L, BUN/Creatinine Ratio 38.5 H, Glucose 395 H, Calcium 7.0 L 07/10/17 21:20: Troponin I 2.69 H* 07/10/17 : Sodium 127 L, Potassium 4.9, Chloride 98, Carbon Dioxide 23.0, Anion Gap 6, BUN 57 H, Creatinine 1.58 H, Est GFR (MDRD) Af Amer 42 L, Est GFR (MDRD) Non-Af 35 L, BUN/Creatinine Ratio 36.1 H, Glucose 670 H*, Calcium 7.5 L 07/10/17 : Hemoglobin A1c 14.9 H 07/11/17 03:40: Sodium 134 L, Potassium 4.3, Chloride 104, Carbon Dioxide 20.0 L, Anion Gap 10, BUN 56 H, Creatinine 1.47 H, Est GFR (MDRD) Af Amer 46 L, Est GFR (MDRD) Non-Af 38 L, BUN/Creatinine Ratio 38.1 H, Glucose 120 H, Calcium 7.3 L, Triglycerides 275 H, Cholesterol 178, LDL Cholesterol 90, VLDL Cholesterol 55 H, HDL Cholesterol 33 L 07/11/17 03:40: Troponin I 2.38 H* 07/11/17 03:40: WBC 8.2, RBC 3.65 L, Hgb 11.4 L, Hct 32.4 L, MCV 88.8, MCH 31.2, MCHC 35.2, RDW 12.0, RDW Differential 37.9, Plt Count 118 L, MPV 10.0, Immature Gran % (Auto) 0.700, Neut % (Auto) 60.7, Lymph % (Auto) 22.1, [place] % (Auto) 13.2 H, Eos % (Auto) 2.9, Baso % (Auto) 0.4, Absolute Neuts (auto) 5.0, Total Counted Not Reportable 07/11/17 03:40: PT 15.5 H, INR 1.2, APTT 25.4 Rhythm: EKG: Normal sinus rhythm with anterior T-wave inversions. Assessment/Plan 1. Non-ST elevation myocardial infarction. She presents with uncontrolled diabetes mellitus and is noted to have EKG changes as well as cardiac enzymes compatible with a non-ST elevation myocardial infarction. At this time the primary aim will be to control her blood sugar appropriately hydrate her until her renal function has improved and stabilized and then we will consider a cardiac catheterization. In the meantime she is being loaded with Plavix, treated with aspirin, and beta-oneal. She has listed a dye allergy which she said she experienced 40 years ago. In all likelihood it was not low molecular weight based contrast agent. Still appears to be in some fluid deficit with an elevated BUN and creatinine. I would like to see this improve further before I give her any contrast agents. I may defer cardiac catheterization until . 2. Hypertension Her blood pressure is noted to be uncontrolled at this time. After appropriate hydration she will be started on an RADHA inhibitor. At this particular time the beta-oneal can be initiated and she can be followed. Thank you for allowing me to participate in the care of your patient. Please don't hesitate to call if any issues arise
[2017-07-11 06:46] LABS: Bedside Glucose 105 mg/dL (70-110)
--- NOTE | 2017-07-11 06:53 | PN.CARD_ITS ---
Subjectve: Patient was seen and evaluated and appears to be doing well with no complaints overnight. Objective: Vital Signs Temp Pulse Resp BP Pulse Ox 97.7 F L 56 L 20 H 98/61 97 07/11/17 00:00 07/11/17 03:00 07/11/17 03:00 07/11/17 03:00 07/11/17 03:00 Oxygen Delivery Method Room Air Weight: 121 lb 4.068 oz Body Mass Index (BMI) 23.3 Intake and Output for Last 24 Hours 07/09/17 07/10/17 07/11/17 23:59 23:59 23:59 Intake Total 1050 / 1050 2035 / 2035 Output Total 2350 / 2350 Balance 1050 / 1050 -315 / -315 General: Awake, Alert, Oriented x 3 HEENT: PERRL, EOMI, Sclera Non Icteric Neck: Supple, Good ROM, No Lymph Node Enlargement Lungs: Clear to auscultation Cardiovascular: Regular Rhythm, Normal S1, Normal S2, No Murmurs, No Rubs, No Gallops Vascular: No Carotid Bruits, Normal Femoral Pulses, Normal Radial Pulses, Normal Dorsalis Pedal Pulse, Normal Posterior Tibial Pulses Abdomen: Bowel Sounds Present, Soft, Non Tender, No HSM, No Organomegaly Extremities: No Cyanosis, No Clubbing, No edema Neurological: No Focal Motor or Sensory Deficit 07/10/17 17:22: Troponin I 2.58 H* 07/10/17 20:13: Sodium 133 L, Potassium 4.1, Chloride 103, Carbon Dioxide 21.0, Anion Gap 9, BUN 55 H, Creatinine 1.43 H, Est GFR (MDRD) Af Amer 48 L, Est GFR ( MDRD) Non-Af 39 L, BUN/Creatinine Ratio 38.5 H, Glucose 395 H, Calcium 7.0 L 07/10/17 21:20: Troponin I 2.69 H* 07/10/17 : Sodium 127 L, Potassium 4.9, Chloride 98, Carbon Dioxide 23.0, Anion Gap 6, BUN 57 H, Creatinine 1.58 H, Est GFR (MDRD) Af Amer 42 L, Est GFR (MDRD) Non-Af 35 L, BUN/Creatinine Ratio 36.1 H, Glucose 670 H*, Calcium 7.5 L 07/10/17 : Hemoglobin A1c 14.9 H 07/11/17 03:40: Sodium 134 L, Potassium 4.3, Chloride 104, Carbon Dioxide 20.0 L , Anion Gap 10, BUN 56 H, Creatinine 1.47 H, Est GFR (MDRD) Af Amer 46 L, Est GFR (MDRD) Non-Af 38 L, BUN/Creatinine Ratio 38.1 H, Glucose 120 H, Calcium 7.3 L, Triglycerides 275 H, Cholesterol 178, LDL Cholesterol 90, VLDL Cholesterol 55 H, HDL Cholesterol 33 L 07/11/17 03:40: Troponin I 2.38 H* 07/11/17 03:40: WBC 8.2, RBC 3.65 L, Hgb 11.4 L, Hct 32.4 L, MCV 88.8, MCH 31.2 , MCHC 35.2, RDW 12.0, RDW Differential 37.9, Plt Count 118 L, MPV 10.0, Immature Gran % (Auto) 0.700, Neut % (Auto) 60.7, Lymph % (Auto) 22.1, [place] % ( Auto) 13.2 H, Eos % (Auto) 2.9, Baso % (Auto) 0.4, Absolute Neuts (auto) 5.0, Total Counted Not Reportable 07/11/17 03:40: PT 15.5 H, INR 1.2, APTT 25.4 Rhythm: EKG: Normal sinus rhythm with anterior T-wave inversions. Assessment/Plan 1. Non-ST elevation myocardial infarction. She presents with uncontrolled diabetes mellitus and is noted to have EKG changes as well as cardiac enzymes compatible with a non-ST elevation myocardial infarction. At this time the primary aim will be to control her blood sugar appropriately hydrate her until her renal function has improved and stabilized and then we will consider a cardiac catheterization. In the meantime she is being loaded with Plavix, treated with aspirin, and beta- oneal. She has listed a dye allergy which she said she experienced 40 years ago. In all likelihood it was not low molecular weight based contrast agent. Still appears to be in some fluid deficit with an elevated BUN and creatinine. I would like to see this improve further before I give her any contrast agents. I may defer cardiac catheterization until . 2. Hypertension Her blood pressure is noted to be uncontrolled at this time. After appropriate hydration she will be started on an RADHA inhibitor. At this particular time the beta-oneal can be initiated and she can be followed. Thank you for allowing me to participate in the care of your patient. Please don't hesitate to call if any issues arise
[2017-07-11] MEDS: Metoprolol Tartrate 25 MG Tablet PO ×2 (09:00→22:10)
[2017-07-11] MEDS: Clopidogrel Bisulfate 75 MG Tablet PO (09:00)
[2017-07-11 09:11] LABS: Bedside Glucose 137 mg/dL (70-110)
--- NOTE | 2017-07-11 09:17 | PN_ITS ---
Subjective: CC: Generalized weakness She presented with generalized weakness and found to have elevated troponin consistent with NSTEMI. She reports no chest pain, shortness of breath, palpitations or rapid heartbeat. Vitals/I&O's: Vital Signs Temp Pulse Resp BP Pulse Ox 97.7 F L 63 13 143/96 H 99 07/11/17 07:44 07/11/17 09:00 07/11/17 08:00 07/11/17 09:00 07/11/17 08:00 Oxygen Delivery Method Room Air Weight: 55 kg Body Mass Index (BMI) 23.3 Intake and Output for Last 24 Hours 07/09/17 07/10/17 07/11/17 23:59 23:59 23:59 Intake Total 1050 / 1050 2035 / 2035 Output Total 2350 / 2350 Balance 1050 / 1050 -315 / -315 General: Alert, Oriented x3 HEENT: Atraumatic Oral: Moist Mucosa Neck: Supple, No JVD Lungs: Clear to auscultation Cardiovascular: Regular rate, Normal S1 Abdomen: Bowel Sounds Present, Soft, Non Tender Extremities: No clubbing Skin: No rashes Neurological: Cranial nerves II-XII grossly intact, Motor Exam 5/5 strength throughout Psych/Mental Status: Normal Affect Laboratory Results 07/10/17 17:02: POC Glucose > 500 H* 07/10/17 17:06: MRSA (PCR) Negative 07/10/17 17:22: Troponin I 2.58 H* 07/10/17 20:00: POC Glucose 442 H 07/10/17 20:13: Sodium 133 L, Potassium 4.1, Chloride 103, Carbon Dioxide 21.0, Anion Gap 9, BUN 55 H, Creatinine 1.43 H, Estim Creat Clear Calc 34.26, Est GFR (MDRD) Af Amer 48 L, Est GFR (MDRD) Non-Af 39 L, BUN/Creatinine Ratio 38.5 H, Glucose 395 H, Calcium 7.0 L 07/10/17 21:20: Troponin I 2.69 H* 07/10/17 : Sodium 127 L, Potassium 4.9, Chloride 98, Carbon Dioxide 23.0, Anion Gap 6, BUN 57 H, Creatinine 1.58 H, Estim Creat Clear Calc 31.01, Est GFR (MDRD ) Af Amer 42 L, Est GFR (MDRD) Non-Af 35 L, BUN/Creatinine Ratio 36.1 H, Glucose 670 H*, Calcium 7.5 L 07/10/17 : Hemoglobin A1c 14.9 H 07/11/17 01:55: POC Glucose 127 H 07/11/17 03:40: Sodium 134 L, Potassium 4.3, Chloride 104, Carbon Dioxide 20.0 L , Anion Gap 10, BUN 56 H, Creatinine 1.47 H, Estim Creat Clear Calc 33.33, Est GFR (MDRD) Af Amer 46 L, Est GFR (MDRD) Non-Af 38 L, BUN/Creatinine Ratio 38.1 H , Glucose 120 H, Calcium 7.3 L, Triglycerides 275 H, Cholesterol 178, LDL Cholesterol 90, VLDL Cholesterol 55 H, HDL Cholesterol 33 L 07/11/17 03:40: Troponin I 2.38 H* 07/11/17 03:40: WBC 8.2, RBC 3.65 L, Hgb 11.4 L, Hct 32.4 L, MCV 88.8, MCH 31.2 , MCHC 35.2, RDW 12.0, RDW Differential 37.9, Plt Count 118 L, MPV 10.0, Immature Gran % (Auto) 0.700, Neut % (Auto) 60.7, Lymph % (Auto) 22.1, [place] % ( Auto) 13.2 H, Eos % (Auto) 2.9, Baso % (Auto) 0.4, Absolute Neuts (auto) 5.0, Absolute Lymphs (auto) 1.82, Total Counted Not Reportable 07/11/17 03:40: PT 15.5 H, INR 1.2, APTT 25.4 07/11/17 06:37: POC Glucose 105 07/11/17 08:55: POC Glucose 137 H Current Medications Acetaminophen (Tylenol) 650 mg PO Q6H PRN PRN PRN Reason: Mild Pain (1-3)/Temp > 100.7 F Last Admin: 07/10/17 21:06 Dose: 650 mg Atorvastatin Calcium (Lipitor) 40 mg PO QHS [facility] Last Admin: 07/10/17 21:05 Dose: 40 mg Clopidogrel Bisulfate (Plavix) 75 mg PO DAILY [facility] Last Admin: 07/11/17 09:00 Dose: 75 mg Dextrose (D50w Syringe) 0 gm IV X1 PRN; Protocol PRN Reason: Hypoglycemia Glucagon () 1 mg IM .X1 PRN PRN Reason: Hypoglycemia Sodium Chloride () 1,000 mls @ 175 mls/hr IV .Q5H43M [facility] Last Admin: 07/11/17 07:51 Dose: 175 mls/hr Sodium Chloride () 1,000 mls @ 15 mls/hr IV .Q48H HAJA PRN Reason: KVO Last Admin: 07/10/17 20:01 Dose: Not Given Insulin Aspart (Novolog Flexpen ([facility])) 0 units SC Q4 HAJA PRN Reason: Protocol Last Admin: 07/11/17 08:57 Dose: Not Given Insulin Detemir (Levemir ([facility])) 20 units SC BID [facility] Last Admin: 07/11/17 09:02 Dose: 20 u Metoprolol Tartrate (Lopressor (Beta Fallon)) 25 mg PO BID [facility] Last Admin: 07/11/17 09:00 Dose: 25 mg Morphine Sulfate (Morphine) 2 - 4 mg IV Q4H PRN PRN PRN Reason: MOD-SEVERE PAIN (4-10/10) Last Admin: 07/11/17 02:01 Dose: 2 mg Morphine Sulfate (Morphine) 2 - 4 mg IV Q4H PRN PRN PRN Reason: MOD-SEVERE PAIN (4-10/10) Sodium Chloride () 5 - 30 ml IV UD PRN PRN Reason: SALINE FLUSH Last Admin: 07/11/17 02:01 Dose: 10 ml Assessment/Plan 1. Non-STEMI; the patient is an appropriate guideline directed medical therapy, she would likely undergo left heart catheterization in the morning. 2. Acute kidney injury; will continue on gentle hydration and avoid potential nephrotoxic agents. 3. Poorly controlled diabetes type 2 with hemoglobin A1c of more than 14; will place him on Levemir and regular insulin sliding scale for glycemic spikes. 4. Hyponatremia; may be due to hypoglycemia. 5. Hypertension; controlled.
--- NOTE | 2017-07-11 11:43 | CASEMGMT ---
See RICHMOND SALOMON assessment list. Pt has [facility]IGEL until end of month, then she is switching to [facility] Community Plan She was trying to establish with Dr. Monsivais, pt first has to change to [facility] Community Plan and they will set up first appointment. -RICHMOND SALOMON called to Dr. Kulkarni-cutter hand in [place] who takes [facility] and [facility] so pt can establish with her. They will not schedule appt until pt has completed referral form. This is to be faxed to RICHMOND SALOMON to give to pt. Above discussed with pt. She has already completed new pt form for Dr. Monsivais. -Is able to get prescriptions and diabetic supplies through [facility]. -Covered insulin list is printed and on front of chart. [facility] is not on preferred list for this insurance. Jefferson VALDOVINOS RN ACM
[2017-07-11 13:26] LABS: Bedside Glucose 230 mg/dL (70-110)
--- NOTE | 2017-07-11 15:18 | CHAPLAIN ---
Type of Pastoral Visit _x__ Initial Visit ___ Follow-up Visit ___ On-call Visit ___ General Patient Visit ___ Spiritual Assessment ___ Family Conference ___ Bereavement ___ Rapid Response ___ Code Blue ___ Other (describe below) Pastoral Care Referral From ___ Patient ___ Family _x__ Nurse ___ Physician ___ Arterial Embalmer ___ Application Security Architect ___ Other (describe below) Sacrament/Intervention _x__ Active listening ___ Anointing ___ Sabianist ___ Bereavement ___ Communion ___ Estrellita exploration ___ ___ Life review ___ Prayer ___ Reconciliation ___ Sacrament of Sick ___ Supportive presence ___ Wedding ___ Other (describe below) Pastoral Comments patient says she is surprised to hear that she had a heart attack; pt somewhat anxious about having heart cath in the morning;
[2017-07-11 18:06] LABS: Bedside Glucose 216 mg/dL (70-110)
--- NOTE | 2017-07-11 20:20 | NURSING ---
Pt, daughter, and son-in-law provided Ipad with education videos. Pt and family do not watch all videos and pt is seen talking on phone and watching TV. Pt and family deny questions and further education regarding possible heart cath in AM
[2017-07-11] MEDS: Atorvastatin Calcium 40 MG Tablet PO (22:10)
[2017-07-11 22:21] LABS: Bedside Glucose 223 mg/dL (70-110)
[2017-07-12] VITALS (21 sets, daily range): BP systolic 109–168; BP diastolic 62–117; PULSE 62–71; RESP 13–19; TEMP 36.7–37.2; O2SAT 96–99
[2017-07-12 02:31] LABS: Bedside Glucose 180 mg/dL (70-110)
[2017-07-12 04:21] LABS: Hematocrit 34.2 % (37-47); Hemoglobin 12.5 g/dl (12.0-15.0); Mean Corp Hgb Conc 36.5 g/gl (32-36); Mean Corpuscular Hgb 32.8 pg (27.0-32.0); Mean Corpuscular Volume 89.8 fL (81-99); Platelet Count 146 K/mm3 (150-450); RBC Distribution Width CV 12.6 % (11.6-14.6); RBC Distribution Width SD 40.4 fl (35.1-43.9); Red Blood Count 3.81 M/mm3 (4.2-5.4); White Blood Count 9.8 K/mm3 (4.4-11.0)
[2017-07-12 04:22] LABS: Scan Indicated on CBC? Y/N NO
[2017-07-12 04:24] LABS: International Normalized Ratio 1.1; Prothrombin Time (Protime)PT. 14.5 SECONDS (11.7-14.9)
[2017-07-12 04:25] LABS: Partial Thromboplast Time 26.3 Seconds (24.1-36.2)
[2017-07-12 04:33] LABS: Anion Gap 10 (5-15); BUN 62 mg/dL (7-18); BUN/Creat Ratio 39.5 RATIO (10-20); Calcium,Total 7.4 mg/dL (8.5-10.1); Chloride 110 mmol/L (98-107); Creatinine, Serum 1.57 mg/dL (0.55-1.02); EST Glomerular Filtration Rate 35 mL/min (>60); Est Glom Filt Rate - Afr Amer 43 mL/min (>60); Estimated Creatinine Clearance 31.84 ml/min; Glucose 151 mg/dL (74-106); Potassium 4.7 mmol/L (3.5-5.1); Sodium Level 137 mmol/L (136-145)
[2017-07-12] MEDS: 0.9% NaCl Peripheral Flush Adult/Peds IV (05:19)
[2017-07-12 05:31] LABS: Bedside Glucose 138 mg/dL (70-110)
--- NOTE | 2017-07-12 05:55 | EKG12_ITS ---
Test Reason : AM EKG Blood Pressure : / mmHG Vent. Rate : 065 BPM Atrial Rate : 065 BPM P-R Int : 144 ms QRS Dur : 088 ms QT Int : 388 ms P-R-T Axes : 065 027 120 degrees QTc Int : 403 ms Normal sinus rhythm Low voltage QRS Inferior infarct , age undetermined Abnormal ECG When compared with ECG of 11-JUL-2017 05:15, MANUAL COMPARISON REQUIRED, DATA IS UNCONFIRMED Confirmed by BETI BALLESTEROS, NATHAN ([id number]), restaurant expeditor MARGARET HUBBARD ([id number] on 07/16/2017 3:28:46 PM Referred By: YADIRA Confirmed By:NATHAN BANG MD
--- NOTE | 2017-07-12 07:04 | PCM.PN.CARD ---
Subjectve: Patient seen and evaluated. Appears to be doing well. Objective: Vital Signs Temp Pulse Resp BP Pulse Ox 98.9 F 65 18 150/73 H 96 07/12/17 05:00 07/12/17 06:00 07/12/17 06:00 07/12/17 06:00 07/12/17 06:00 Oxygen Delivery Method Room Air Weight: 128 lb 15.527 oz Body Mass Index (BMI) 23.3 Intake and Output for Last 24 Hours 07/10/17 07/11/17 07/12/17 23:59 23:59 23:59 Intake Total 1050 / 1050 4301 / 4301 655 / 655 Output Total 2725 / 2725 175 / 175 Balance 1050 / 1050 1576 / 1576 480 / 480 General: Awake, Alert, Oriented x 3 HEENT: PERRL, EOMI, Sclera Non Icteric Neck: Supple, Good ROM, No Lymph Node Enlargement Lungs: Clear to auscultation Cardiovascular: Regular Rhythm, Normal S1, Normal S2, No Murmurs, No Rubs, No Gallops Vascular: No Carotid Bruits, Normal Femoral Pulses, Normal Radial Pulses, Normal Dorsalis Pedal Pulse, Normal Posterior Tibial Pulses Abdomen: Bowel Sounds Present, Soft, Non Tender, No HSM, No Organomegaly Extremities: No Cyanosis, No Clubbing, No edema Neurological: No Focal Motor or Sensory Deficit 07/12/17 04:10: WBC 9.8, RBC 3.81 L, Hgb 12.5, Hct 34.2 L, MCV 89.8, MCH 32.8 H, MCHC 36.5 H, RDW 12.6, RDW Differential 40.4, Plt Count 146 L, MPV 10.0 07/12/17 04:10: PT 14.5, INR 1.1, APTT 26.3 07/12/17 04:10: Sodium 137, Potassium 4.7, Chloride 110 H, Carbon Dioxide 17.0 L, Anion Gap 10, BUN 62 H, Creatinine 1.57 H, Est GFR (MDRD) Af Amer 43 L, Est GFR (MDRD) Non-Af 35 L, BUN/Creatinine Ratio 39.5 H, Glucose 151 H, Calcium 7.4 L Rhythm: EKG: ECHO: Reduced ejection fraction with segmental wall motion abnormalities involving the anterior wall estimated ejection fraction 30%. Assessment/Plan 1. Non-ST elevation myocardial infarction. She presents with uncontrolled diabetes mellitus and is noted to have EKG changes as well as cardiac enzymes compatible with a non-ST elevation myocardial infarction. At this time the primary aim will be to control her blood sugar appropriately hydrate her until her renal function has improved and stabilized and then we will consider a cardiac catheterization. In the meantime she is being loaded with Plavix, treated with aspirin, and beta-oneal. She has listed a dye allergy which she said she experienced 40 years ago. In all likelihood it was not low molecular weight based contrast agent. Still appears to be in some fluid deficit with an elevated BUN and creatinine. I would like to see this improve further before I give her any contrast agents. I may defer cardiac catheterization until Sunday. I have discussed the above with the patient as well as with the nursing staff. I will suggest increasing her IV fluids 200 cc of normal saline today. The patient can be transferred out of the intensive care unit. 2. Hypertension Her blood pressure is noted to be uncontrolled at this time. After appropriate hydration she will be started on an RADHA inhibitor. At this particular time the beta-oneal can be initiated and she can be followed. Thank you for allowing me to participate in the care of your patient. Please don't hesitate to call if any issues arise
--- NOTE | 2017-07-12 07:07 | PN.CARD_ITS ---
Subjectve: Patient seen and evaluated. Appears to be doing well. Objective: Vital Signs Temp Pulse Resp BP Pulse Ox 98.9 F 65 18 150/73 H 96 07/12/17 05:00 07/12/17 06:00 07/12/17 06:00 07/12/17 06:00 07/12/17 06:00 Oxygen Delivery Method Room Air Weight: 128 lb 15.527 oz Body Mass Index (BMI) 23.3 Intake and Output for Last 24 Hours 07/10/17 07/11/17 07/12/17 23:59 23:59 23:59 Intake Total 1050 / 1050 4301 / 4301 655 / 655 Output Total 2725 / 2725 175 / 175 Balance 1050 / 1050 1576 / 1576 480 / 480 General: Awake, Alert, Oriented x 3 HEENT: PERRL, EOMI, Sclera Non Icteric Neck: Supple, Good ROM, No Lymph Node Enlargement Lungs: Clear to auscultation Cardiovascular: Regular Rhythm, Normal S1, Normal S2, No Murmurs, No Rubs, No Gallops Vascular: No Carotid Bruits, Normal Femoral Pulses, Normal Radial Pulses, Normal Dorsalis Pedal Pulse, Normal Posterior Tibial Pulses Abdomen: Bowel Sounds Present, Soft, Non Tender, No HSM, No Organomegaly Extremities: No Cyanosis, No Clubbing, No edema Neurological: No Focal Motor or Sensory Deficit 07/12/17 04:10: WBC 9.8, RBC 3.81 L, Hgb 12.5, Hct 34.2 L, MCV 89.8, MCH 32.8 H , MCHC 36.5 H, RDW 12.6, RDW Differential 40.4, Plt Count 146 L, MPV 10.0 07/12/17 04:10: PT 14.5, INR 1.1, APTT 26.3 07/12/17 04:10: Sodium 137, Potassium 4.7, Chloride 110 H, Carbon Dioxide 17.0 L , Anion Gap 10, BUN 62 H, Creatinine 1.57 H, Est GFR (MDRD) Af Amer 43 L, Est GFR (MDRD) Non-Af 35 L, BUN/Creatinine Ratio 39.5 H, Glucose 151 H, Calcium 7.4 L Rhythm: EKG: ECHO: Reduced ejection fraction with segmental wall motion abnormalities involving the anterior wall estimated ejection fraction 30%. Assessment/Plan 1. Non-ST elevation myocardial infarction. She presents with uncontrolled diabetes mellitus and is noted to have EKG changes as well as cardiac enzymes compatible with a non-ST elevation myocardial infarction. At this time the primary aim will be to control her blood sugar appropriately hydrate her until her renal function has improved and stabilized and then we will consider a cardiac catheterization. In the meantime she is being loaded with Plavix, treated with aspirin, and beta- oneal. She has listed a dye allergy which she said she experienced 40 years ago. In all likelihood it was not low molecular weight based contrast agent. Still appears to be in some fluid deficit with an elevated BUN and creatinine. I would like to see this improve further before I give her any contrast agents. I may defer cardiac catheterization until Sunday. I have discussed the above with the patient as well as with the nursing staff. I will suggest increasing her IV fluids 200 cc of normal saline today. The patient can be transferred out of the intensive care unit. 2. Hypertension Her blood pressure is noted to be uncontrolled at this time. After appropriate hydration she will be started on an RADHA inhibitor. At this particular time the beta-oneal can be initiated and she can be followed. Thank you for allowing me to participate in the care of your patient. Please don't hesitate to call if any issues arise
[2017-07-12] MEDS: 0.9% Normal Saline 1,000 ML 100 ML IV ×2 (07:49→17:13)
[2017-07-12 08:56] LABS: Bedside Glucose 127 mg/dL (70-110)
[2017-07-12] MEDS: Metoprolol Tartrate 25 MG Tablet PO ×2 (09:27→21:53)
[2017-07-12] MEDS: Clopidogrel Bisulfate 75 MG Tablet PO (09:27)
[2017-07-12 11:56] LABS: Bedside Glucose 202 mg/dL (70-110)
[2017-07-12 16:06] LABS: Bedside Glucose 207 mg/dL (70-110)
--- NOTE | 2017-07-12 16:06 | PN_ITS ---
Subjective: CC: Generalized weakness She presented with generalized weakness and found to have elevated troponin consistent with NSTEMI. She reports no chest pain, shortness of breath, palpitations or rapid heartbeat. Heart catheterization was postponed due to acute kidney injury, she is receiving IV fluids and we will continue to monitor her renal parameters closely. Vitals/I&O's: Vital Signs Temp Pulse Resp BP Pulse Ox 98.1 F 63 16 128/62 H 97 07/12/17 14:00 07/12/17 15:30 07/12/17 14:00 07/12/17 14:00 07/12/17 14:00 Oxygen Delivery Method Room Air Weight: 58.5 kg Body Mass Index (BMI) 23.3 Intake and Output for Last 24 Hours 07/10/17 07/11/17 07/12/17 23:59 23:59 23:59 Intake Total 1050 / 1050 4301 / 4301 1377 / 1377 Output Total 2725 / 2725 225 / 225 Balance 1050 / 1050 1576 / 1576 1152 / 1152 General: Alert, Oriented x3 Oral: Moist Mucosa Neck: Supple, No JVD Lungs: Clear to auscultation Cardiovascular: Regular rate, Normal S1, Normal S2 Abdomen: Bowel Sounds Present Extremities: No edema Neurological: Cranial nerves II-XII grossly intact, Motor Exam 5/5 strength throughout Laboratory Results 07/11/17 17:49: POC Glucose 216 H 07/11/17 22:05: POC Glucose 223 H 07/12/17 02:15: POC Glucose 180 H 07/12/17 04:10: WBC 9.8, RBC 3.81 L, Hgb 12.5, Hct 34.2 L, MCV 89.8, MCH 32.8 H , MCHC 36.5 H, RDW 12.6, RDW Differential 40.4, Plt Count 146 L, MPV 10.0 07/12/17 04:10: PT 14.5, INR 1.1, APTT 26.3 07/12/17 04:10: Sodium 137, Potassium 4.7, Chloride 110 H, Carbon Dioxide 17.0 L , Anion Gap 10, BUN 62 H, Creatinine 1.57 H, Estim Creat Clear Calc 31.84, Est GFR (MDRD) Af Amer 43 L, Est GFR (MDRD) Non-Af 35 L, BUN/Creatinine Ratio 39.5 H , Glucose 151 H, Calcium 7.4 L 07/12/17 05:15: POC Glucose 138 H 07/12/17 08:49: POC Glucose 127 H 07/12/17 11:44: POC Glucose 202 H Current Medications Acetaminophen (Tylenol) 650 mg PO Q6H PRN PRN PRN Reason: Mild Pain (1-3)/Temp > 100.7 F Last Admin: 07/10/17 21:06 Dose: 650 mg Atorvastatin Calcium (Lipitor) 40 mg PO QHS [facility] Last Admin: 07/11/17 22:10 Dose: 40 mg Clopidogrel Bisulfate (Plavix) 75 mg PO DAILY [facility] Last Admin: 07/12/17 09:27 Dose: 75 mg Dextrose (D50w Syringe) 0 gm IV X1 PRN; Protocol PRN Reason: Hypoglycemia Glucagon () 1 mg IM .X1 PRN PRN Reason: Hypoglycemia Heparin Sodium (Porcine) (Heparin Na) 5,000 unit SC Q8 [facility] Last Admin: 07/12/17 13:46 Dose: 5,000 u Sodium Chloride () 1,000 mls @ 15 mls/hr IV .Q48H [facility] PRN Reason: KVO Last Admin: 07/10/17 20:01 Dose: Not Given Sodium Chloride () 1,000 mls @ 100 mls/hr IV .Q10H [facility] Last Admin: 07/12/17 07:49 Dose: 100 mls/hr Insulin Aspart (Novolog Flexpen (Bkc)) 0 units SC ACHS [facility] PRN Reason: Protocol Last Admin: 07/12/17 11:46 Dose: 3 u Insulin Detemir (Levemir (Bkc)) 20 units SC BID [facility] Last Admin: 07/12/17 09:28 Dose: 20 u Metoprolol Tartrate (Lopressor (Beta Fallon)) 25 mg PO BID [facility] Last Admin: 07/12/17 09:27 Dose: 25 mg Morphine Sulfate (Morphine) 2 - 4 mg IV Q4H PRN PRN PRN Reason: MOD-SEVERE PAIN (4-10/10) Last Admin: 07/11/17 02:01 Dose: 2 mg Morphine Sulfate (Morphine) 2 - 4 mg IV Q4H PRN PRN PRN Reason: MOD-SEVERE PAIN (4-10/10) Nicotine (Nicoderm Cq (Pbkc)) 21 mg TRANSDERM. DAILY [facility] Last Admin: 07/12/17 10:45 Dose: 21 mg Sodium Chloride () 5 - 30 ml IV UD PRN PRN Reason: SALINE FLUSH Last Admin: 07/12/17 05:19 Dose: 10 ml Assessment/Plan 1. Non-STEMI; the patient is an appropriate guideline directed medical therapy, she would undergo left heart catheterization once her renal parameters improved 2. Acute kidney injury; will continue on IV hydration and avoid potential nephrotoxic agents. 3. Poorly controlled diabetes type 2 with hemoglobin A1c of more than 14; she is on Levemir and regular insulin sliding scale for glycemic spikes. 4. Hyponatremia; improve with IV hydration 5. Hypertension; controlled. Code Visit Inpatient E&M: 22875 Subs Hosp L2
[2017-07-12] MEDS: Atorvastatin Calcium 40 MG Tablet PO (21:53)
[2017-07-12 22:36] LABS: Bedside Glucose 203 mg/dL (70-110)
[2017-07-13] VITALS (13 sets, daily range): BP systolic 133–156; BP diastolic 71–77; PULSE 59–69; RESP 16–18; TEMP 36.4–37; O2SAT 96–99
[2017-07-13] MEDS: 0.9% Normal Saline 1,000 ML 100 ML IV (03:26)
--- NOTE | 2017-07-13 05:55 | EKG12_ITS ---
Test Reason : AM EKG Blood Pressure : / mmHG Vent. Rate : 065 BPM Atrial Rate : 065 BPM P-R Int : 150 ms QRS Dur : 082 ms QT Int : 400 ms P-R-T Axes : 061 -01 143 degrees QTc Int : 416 ms Normal sinus rhythm Low voltage QRS Borderline ECG When compared with ECG of 12-JUL-2017 05:20, MANUAL COMPARISON REQUIRED, DATA IS UNCONFIRMED Confirmed by BETI BALLESTEROS, NATHAN ([id number]), editor publications MARGARET HUBBARD ([id number]) on 07/16/2017 3:25:42 PM Referred By: Confirmed By:NATHAN BANG MD
[2017-07-13 05:59] LABS: Absolute Lymphocyte Count 1.47 X10^3/ul (0.83-4.51); Absolute Neutrophil Count 6.1 X10^3/uL (2.0-7.7); Basophil# 0.02 X10^3/uL; Basophil% 0.2 % (0-1); Eosinophils% 2.2 % (0-5); Hematocrit 36.1 % (37-47); Hemoglobin 12.9 g/dl (12.0-15.0); Lymphocyte # 1.47 X10^3/ul (4.0); Mean Corp Hgb Conc 35.7 g/gl (32-36); Mean Corpuscular Hgb 32.3 pg (27.0-32.0); Mean Corpuscular Volume 90.5 fL (81-99); Mean Platelet Vol. 9.9 fl (6.2-12.0); Monocyte# 1.29 X10^3/uL; Neutrophil # 6.12 X10^3/uL (2.7-7.7); Neutrophil % 66.5 % (47-70); Platelet Count 197 K/mm3 (150-450); RBC Distribution Width CV 12.4 % (11.6-14.6); RBC Distribution Width SD 40.5 fl (35.1-43.9); Red Blood Count 3.99 M/mm3 (4.2-5.4); White Blood Count 9.2 K/mm3 (4.4-11.0)
[2017-07-13 06:06] LABS: POSITIVE COUNT NO; POSITIVE DIFFERENTIAL NO; POSITIVE MORPHOLOGY NO
[2017-07-13 06:14] LABS: Anion Gap 10 (5-15); BUN 71 mg/dL (7-18); BUN/Creat Ratio 48.3 RATIO (10-20); Calcium,Total 7.3 mg/dL (8.5-10.1); Chloride 110 mmol/L (98-107); Creatinine, Serum 1.47 mg/dL (0.55-1.02); EST Glomerular Filtration Rate 38 mL/min (>60); Est Glom Filt Rate - Afr Amer 46 mL/min (>60); Estimated Creatinine Clearance 38.34 ml/min; Glucose 203 mg/dL (74-106); Potassium 5.2 mmol/L (3.5-5.1); Sodium Level 135 mmol/L (136-145)
[2017-07-13 06:19] LABS: International Normalized Ratio 1.1; Prothrombin Time (Protime)PT. 14.1 SECONDS (11.7-14.9)
[2017-07-13 06:20] LABS: Partial Thromboplast Time 28.8 Seconds (24.1-36.2)
[2017-07-13] MEDS: Metoprolol Tartrate 25 MG Tablet PO ×2 (06:47→21:14)
[2017-07-13] MEDS: Clopidogrel Bisulfate 75 MG Tablet PO (06:47)
[2017-07-13 06:56] LABS: Bedside Glucose 256 mg/dL (70-110)
--- NOTE | 2017-07-13 10:16 | PN.CARD_ITS ---
Subjectve: The patient was seen and evaluated and appears to be stable. She denies any chest pain. Objective: Vital Signs Temp Pulse Resp BP Pulse Ox 97.6 F L 64 18 133/71 H 96 07/13/17 09:35 07/13/17 09:35 07/13/17 09:35 07/13/17 09:35 07/13/17 09:35 Oxygen Delivery Method Room Air Weight: 136 lb 10.986 oz Body Mass Index (BMI) 23.3 Intake and Output for Last 24 Hours 07/11/17 07/12/17 07/13/17 23:59 23:59 23:59 Intake Total 4301 / 4301 2075 / 2075 1547 / 1547 Output Total 2725 / 2725 425 / 425 350 / 350 Balance 1576 / 1576 1650 / 1650 1197 / 1197 General: Awake, Alert, Oriented x 3 HEENT: PERRL, EOMI, Sclera Non Icteric Oral: Dry Mucosa Neck: Supple, Good ROM, No Lymph Node Enlargement Lungs: Clear to auscultation Cardiovascular: Regular Rhythm, Normal S1, Normal S2, No Murmurs, No Rubs, No Gallops Vascular: No Carotid Bruits, Normal Femoral Pulses, Normal Radial Pulses, Normal Dorsalis Pedal Pulse, Normal Posterior Tibial Pulses Abdomen: Bowel Sounds Present, Soft, Non Tender, No HSM, No Organomegaly Extremities: No Cyanosis, No Clubbing, No edema Neurological: No Focal Motor or Sensory Deficit 07/13/17 05:38: WBC 9.2, RBC 3.99 L, Hgb 12.9, Hct 36.1 L, MCV 90.5, MCH 32.3 H , MCHC 35.7, RDW 12.4, RDW Differential 40.5, Plt Count 197, MPV 9.9, Immature Gran % (Auto) 1.100 H, Neut % (Auto) 66.5, Lymph % (Auto) 16.0 L, Pope % (Auto) 14.0 H, Eos % (Auto) 2.2, Baso % (Auto) 0.2, Absolute Neuts (auto) 6.1, Total Counted Not Reportable 07/13/17 05:38: PT 14.1, INR 1.1, APTT 28.8 07/13/17 05:38: Sodium 135 L, Potassium 5.2 H, Chloride 110 H, Carbon Dioxide 15.0 L, Anion Gap 10, BUN 71 H, Creatinine 1.47 H, Est GFR (MDRD) Af Amer 46 L, Est GFR (MDRD) Non-Af 38 L, BUN/Creatinine Ratio 48.3 H, Glucose 203 H, Calcium 7.3 L Assessment/Plan 1. Non-ST elevation myocardial infarction. She presents with uncontrolled diabetes mellitus and is noted to have EKG changes as well as cardiac enzymes compatible with a non-ST elevation myocardial infarction. At this time the primary aim will be to control her blood sugar appropriately hydrate her until her renal function has improved and stabilized and then we will consider a cardiac catheterization. In the meantime she is being loaded with Plavix, treated with aspirin, and beta- oenal. She has listed a dye allergy which she said she experienced 40 years ago. In all likelihood it was not low molecular weight based contrast agent. Still appears to be in some fluid deficit with an elevated BUN and creatinine. This unfortunately appears to be getting worse. I would like to see this improve further before I give her any contrast agents. I may defer cardiac catheterization until Sunday. I have discussed the above with the patient as well as with the nursing staff. I will suggest increasing her IV fluids 100 cc of normal saline per hour today. 2. Hypertension Her blood pressure is noted to be uncontrolled at this time. After appropriate hydration she will be started on an RADHA inhibitor. At this particular time the beta-oneal can be initiated and she can be followed. Thank you for allowing me to participate in the care of your patient. Please don't hesitate to call if any issues arise
--- NOTE | 2017-07-13 10:37 | US_ITS ---
STUDY: RENAL ULTRASOUND - LIMITED REASON FOR EXAM: Female, 62 years old. Abnormal renal function tests TECHNIQUE: Transverse and longitudinal imaging of the kidneys was performed using real-time ultrasound. COMPARISON: None. FINDINGS: RIGHT KIDNEY: The right kidney is normal in location. The right kidney measures 12.8 x 6.1 x 6.7 cm. The renal cortex is normal in appearance. The renal cortex measures 1.5 cm. There is no demonstrated renal mass. There is no dilatation of the collecting system. LEFT KIDNEY: The left kidney is normal in location. The left kidney measures 13.3 x 7.0 x 5.7 cm. The renal cortex is normal in appearance. The renal cortex measures 1.8 cm. There is no demonstrated renal mass. There is no dilatation of the collecting system. US/Kidney and Bladder IMPRESSION: Both kidneys are normal in size and echogenicity without hydronephrosis. Incidentally noted is a right pleural effusion. Electronically Signed: Radha Santiago MD at 17:34 EST Tel Direct: [phone], Service support ,
--- NOTE | 2017-07-13 10:39 | PN_ITS ---
Subjective: CC: Follow-up on NSTEMI. This is a 72-year-old female with poorly controlled diabetes who presented with generalized weakness and non specific symptoms and found to have elevated troponin consistent with NSTEMI. She was to undergo left heart catheterization but this has been postponed due to renal insufficiency. She reports no chest pain , shortness of breath, palpitations or rapid heartbeat. Vitals/I&O's: Vital Signs Temp Pulse Resp BP Pulse Ox 97.6 F L 64 18 133/71 H 96 07/13/17 09:35 07/13/17 09:35 07/13/17 09:35 07/13/17 09:35 07/13/17 09:35 Oxygen Delivery Method Room Air Weight: 62 kg Body Mass Index (BMI) 23.3 Intake and Output for Last 24 Hours 07/11/17 07/12/17 07/13/17 23:59 23:59 23:59 Intake Total 4301 / 4301 2075 / 2075 1547 / 1547 Output Total 2725 / 2725 425 / 425 350 / 350 Balance 1576 / 1576 1650 / 1650 1197 / 1197 General: Alert, Oriented x3 HEENT: Atraumatic Oral: Moist Mucosa Neck: Supple, No JVD Lungs: Clear to auscultation Cardiovascular: Regular rate, Normal S1 Abdomen: Bowel Sounds Present, Soft, Non Tender Extremities: No edema Neurological: Cranial nerves II-XII grossly intact, Deep Tendon Reflexes 2+/4 and Symmetrical, Neuro grossly intact, Motor Exam 5/5 strength throughout Psych/Mental Status: Normal Affect Laboratory Results 07/12/17 11:44: POC Glucose 202 H 07/12/17 16:02: POC Glucose 207 H 07/12/17 21:51: POC Glucose 203 H 07/13/17 05:38: WBC 9.2, RBC 3.99 L, Hgb 12.9, Hct 36.1 L, MCV 90.5, MCH 32.3 H , MCHC 35.7, RDW 12.4, RDW Differential 40.5, Plt Count 197, MPV 9.9, Immature Gran % (Auto) 1.100 H, Neut % (Auto) 66.5, Lymph % (Auto) 16.0 L, Phelps % (Auto) 14.0 H, Eos % (Auto) 2.2, Baso % (Auto) 0.2, Absolute Neuts (auto) 6.1, Absolute Lymphs (auto) 1.47, Total Counted Not Reportable 07/13/17 05:38: PT 14.1, INR 1.1, APTT 28.8 07/13/17 05:38: Sodium 135 L, Potassium 5.2 H, Chloride 110 H, Carbon Dioxide 15.0 L, Anion Gap 10, BUN 71 H, Creatinine 1.47 H, Estim Creat Clear Calc 38.34 , Est GFR (MDRD) Af Amer 46 L, Est GFR (MDRD) Non-Af 38 L, BUN/Creatinine Ratio 48.3 H, Glucose 203 H, Calcium 7.3 L 07/13/17 06:49: POC Glucose 256 H Current Medications Acetaminophen (Tylenol) 650 mg PO Q6H PRN PRN PRN Reason: Mild Pain (1-3)/Temp > 100.7 F Last Admin: 07/10/17 21:06 Dose: 650 mg Atorvastatin Calcium (Lipitor) 40 mg PO QHS [facility] Last Admin: 07/12/17 21:53 Dose: 40 mg Clopidogrel Bisulfate (Plavix) 75 mg PO DAILY [facility] [place] Last Admin: 07/13/17 06:47 Dose: 75 mg Dextrose (D50w Syringe) 0 gm IV X1 PRN; Protocol PRN Reason: Hypoglycemia Glucagon () 1 mg IM .X1 PRN PRN Reason: Hypoglycemia Heparin Sodium (Porcine) (Heparin Na) 5,000 unit SC Q8 [facility] [place] Last Admin: 07/13/17 03:38 Dose: Not Given Sodium Chloride () 1,000 mls @ 15 mls/hr IV .Q48H [facility] [place] PRN Reason: KVO Last Admin: 07/13/17 09:40 Dose: Not Given Sodium Bicarbonate 50 meq/ (Dextrose) 1,050 mls @ 100 mls/hr IV .[id number] [facility] [place] Insulin Aspart (Novolog Flexpen (Bkc)) 0 units SC ACHS [facility] [place] PRN Reason: Protocol Last Admin: 07/13/17 10:25 Dose: 6 u Insulin Detemir (Levemir (Bkc)) 20 units SC BID [facility] [place] Last Admin: 07/13/17 10:25 Dose: 20 u Metoprolol Tartrate (Lopressor (Beta Fallon)) 25 mg PO BID [facility] [place] Last Admin: 07/13/17 06:47 Dose: 25 mg Morphine Sulfate (Morphine) 2 - 4 mg IV Q4H PRN PRN PRN Reason: MOD-SEVERE PAIN (4-10/10) Last Admin: 07/11/17 02:01 Dose: 2 mg Morphine Sulfate (Morphine) 2 - 4 mg IV Q4H PRN PRN PRN Reason: MOD-SEVERE PAIN (4-10/10) Nicotine (Nicoderm Cq (Pbkc)) 21 mg TRANSDERM. DAILY [facility] Last Admin: 07/13/17 09:38 Dose: 21 mg Sodium Chloride () 5 - 30 ml IV UD PRN PRN Reason: SALINE FLUSH Last Admin: 07/12/17 05:19 Dose: 10 ml Assessment/Plan 1. NSTEMI; the patient is an appropriate guideline directed medical therapy, she would undergo left heart catheterization once her renal function. 2. Acute kidney injury; we will continue on IV hydration and avoid potential nephrotoxic agents. We will obtain renal ultrasound and consult communications billing analyst. 3. Metabolic acidosis(NAGMA); she also has mild hyperkalemia and I wonder if she has developed type IV renal tubular acidosis . We will change IV fluids to sodium bicarbonate in dextrose gtt. 4 Poorly controlled diabetes type 2 ; A1c > 14; we will go up on her Levemir and continue her regular insulin sliding scale for glycemic spikes. 5. Hyponatremia; improved with IV hydration 6. Hypertension; controlled. 7. Mild Hyperkalemia; this should improve with insulin therapy, 8. DVT prophylaxis with subcutaneous heparin. Code Visit Inpatient E&M: [id number] [place] [id number]
[2017-07-13 14:11] LABS: Bedside Glucose 241 mg/dL (70-110)
--- NOTE | 2017-07-13 14:41 | PCM.CONS.R ---
Consultation - Renal 07/13/17 PCP/ Referring MD: Requesting physician: Sury Anderson MD Primary care physician: No Primary Care Phys Reason for Consultation:: renal failure - History of Present Illness History of Present Illness: The patient is a 62 year old F admitted to [facility] on 07/10 for hyperosmolar nonketotic hyperglycemia with generalized malaise, not feeling well overall. Sugar was elevated at 844 in ER. Sugars were too high to register on her monitor.She did not take medications on a regular bases at home. She has not been seen by a doctor for over 20 years because she felt fine until recently. She was told her sugars were elevated back in January when she went in to be evaluated for cataract surgery. She was told she had bleeding in the back of her eye and needed this addressed first before cataract surgery. She has been experiencing blurry vision, floaters in her right eye, urinary frequency with increased thirst. Denied weight loss. She was started on insulin drip on admit with improved sugars. She was diagnosed with NSTEMI with troponin of 2.69 to 2.38. Cardiology was consulted. She denied chest pain, shortness of breath, arm pain, palpitations. She noticed increased swelling 5 days ago. She continues to smoke but has cut back to half pack a day. Consulted for renal failure. Creatinine was 1.78 on admit improved to 1.47 today. No labs prior to admit available since she has not followed up with a doctor for years. She has a FH significant for diabetes, renal failure with ESRD in her father, bladder cancer in her uncle and paternal GF. She had bloody urine in her arroyo thought due to trauma. Denied gross hematuria at home. She was seen in radiology following her renal us. - Allergies Allergies: Allergies ibuprofen Allergy (Verified 07/10/17 12:30) Anaphylaxis Iodinated Contrast- Oral and IV Dye [CONTRASTS] Allergy (Verified 07/10/17 12:30) Anaphylaxis Penicillins Allergy (Verified 07/10/17 12:30) Hives - Current Medications Current Medications: Current Medications Acetaminophen (Tylenol) 650 mg PO Q6H PRN PRN PRN Reason: Mild Pain (1-3)/Temp > 100.7 F Last Admin: 07/10/17 21:06 Dose: 650 mg Atorvastatin Calcium (Lipitor) 40 mg PO QHS HAJA Last Admin: 07/12/17 21:53 Dose: 40 mg Clopidogrel Bisulfate (Plavix) 75 mg PO DAILY [facility] Last Admin: 07/13/17 06:47 Dose: 75 mg Dextrose (D50w Syringe) 0 gm IV X1 PRN; Protocol PRN Reason: Hypoglycemia Glucagon () 1 mg IM .X1 PRN PRN Reason: Hypoglycemia Heparin Sodium (Porcine) (Heparin Na) 5,000 unit SC Q8 [facility] Last Admin: 07/13/17 03:38 Dose: Not Given Sodium Chloride () 1,000 mls @ 15 mls/hr IV .Q48H HAJA PRN Reason: KVO Last Admin: 07/13/17 09:40 Dose: Not Given Sodium Bicarbonate 50 meq/ (Dextrose) 1,050 mls @ 100 mls/hr IV .[id number] [facility] Last Admin: 07/13/17 11:26 Dose: 100 mls/hr Insulin Aspart (Novolog Flexpen (Bkc)) 0 units SC ACHS HAJA PRN Reason: Protocol Last Admin: 07/13/17 13:56 Dose: 6 u Insulin Detemir (Levemir (Bkc)) 20 units SC BID [facility] Last Admin: 07/13/17 10:25 Dose: 20 u Metoprolol Tartrate (Lopressor (Beta Fallon)) 25 mg PO BID [facility] Last Admin: 07/13/17 06:47 Dose: 25 mg Morphine Sulfate (Morphine) 2 - 4 mg IV Q4H PRN PRN PRN Reason: MOD-SEVERE PAIN (4-10/10) Last Admin: 07/11/17 02:01 Dose: 2 mg Morphine Sulfate (Morphine) 2 - 4 mg IV Q4H PRN PRN PRN Reason: MOD-SEVERE PAIN (4-10/10) Nicotine (Nicoderm Cq (Pbkc)) 21 mg TRANSDERM. DAILY [facility] Last Admin: 07/13/17 09:38 Dose: 21 mg Sodium Chloride () 5 - 30 ml IV UD PRN PRN Reason: SALINE FLUSH Last Admin: 07/12/17 05:19 Dose: 10 ml - Past Medical History Past Medical History (Chronic Problems): Chronic Problems Hypertension (Chronic) Type 2 diabetes mellitus (Chronic) - Past Surgical History Surgical History: cholecystectomy, hysterectomy - Social History Smoking Status: Current every day smoker Alcohol: None Drugs: None - Family History Maternal History Items: High Cholesterol, Heart Disease, Hypertension Paternal History Items: Diabetes, Renal Disease - ESRD on hemodialysis, Stroke uncle History Items: Cancer - bladder PGF History Items: Cancer Review of Systems Constitutional: Reports: Malaise, Weakness, Fatigue. Denies: Anorexia, Chills, Fever Eyes: Reports: Blurred vision, Cataracts, Vision Change - retinopathy HEENT: Denies: Head Aches, Nasal Congestion Cardiovascular: Reports: Edema. Denies: Chest Pain, Orthopnea, Palpitations, Syncope Respiratory: Denies: Cough, Shortness of Breath Gastrointestinal: Denies: Abdominal Pain, Constipation, Diarrhea, Nausea, Vomiting Genitourinary: Reports: Frequency. Denies: Dysuria Musculoskeletal: Reports: - - leg swelling. Denies: Back Pain, Leg Pain, Muscle pain Skin: Denies: Rash Neurological: Denies: Tremor, Seizures Psychiatric: Denies: Anxiety, Depression Endocrine: Reports: Polydipsia, Polyuria, - - fatigue Hematologic/ Lymphatic: Denies: Hx of blood clot - Physical Exam General: Alert, Oriented x3, Cooperative, No apparent distress HEENT: PERRLA, EOMI Oral: Moist Mucosa Neck: Supple, No JVD Lungs: Clear to auscultation Cardiovascular: Regular rate Abdomen: Bowel Sounds Present, Soft, Non Tender, Non-Distended Extremities: No edema - 1+ pitting Skin: No rashes Musculoskeletal: Muscle Wasting Lymphatic: No Cervical, Supraclavicular, or Inguinal Adenopathy Neurological: Cranial nerves II-XII grossly intact Psych/Mental Status: Normal Affect, Alert and oriented to time, place, person, mood and affect Vital Signs Temp Pulse Resp BP Pulse Ox 97.6 F L 59 L 18 133/71 H 96 07/13/17 09:35 07/13/17 11:16 07/13/17 09:35 07/13/17 09:35 07/13/17 09:35 Oxygen Delivery Method Room Air Weight: 62 kg Body Mass Index (BMI) 23.3 Intake and Output for Last 24 Hours 07/11/17 07/12/17 07/13/17 23:59 23:59 23:59 Intake Total 4301 / 4301 2075 / 2075 1547 / 1547 Output Total 2725 / 2725 425 / 425 350 / 350 Balance 1576 / 1576 1650 / 1650 1197 / 1197 Laboratory Tests Past 24 Hrs 07/13/17 07/13/17 07/13/17 05:38 05:38 05:38 WBC 9.2 RBC 3.99 L Hgb 12.9 Hct 36.1 L MCV 90.5 MCH 32.3 H MCHC 35.7 RDW 12.4 RDW Differential 40.5 Plt Count 197 MPV 9.9 Immature Gran % (Auto) 1.100 H Neut % (Auto) 66.5 Lymph % (Auto) 16.0 L [place] % (Auto) 14.0 H Eos % (Auto) 2.2 Baso % (Auto) 0.2 Absolute Neuts (auto) 6.1 Absolute Lymphs (auto) 1.47 Total Counted Not Reportable PT 14.1 INR 1.1 APTT 28.8 Sodium 135 L Potassium 5.2 H Chloride 110 H Carbon Dioxide 15.0 L Anion Gap 10 BUN 71 H Creatinine 1.47 H Estim Creat Clear Calc 38.34 Est GFR (MDRD) Af Amer 46 L Est GFR (MDRD) Non-Af 38 L BUN/Creatinine Ratio 48.3 H Glucose 203 H Calcium 7.3 L POC Glucose 07/13/17 07/13/17 07/12/17 13:51 06:49 21:51 POC Glucose 241 H 256 H 203 H 07/12/17 16:02 POC Glucose 207 H Assessment/Plan 1. CKD stage 3 due to poorly controlled diabetic nephropathy with nephrotic proteinuria UPCR 14.9g/gCr protein with edema, retinopathy, cataracts. 2. Nephrotic syndrome from diabetic nephropathy. 3. Metabolic acidosis with hyperkalemia. Correct with bicarb drip 4. NSTEMI on plavix, cardiology following 5. Ischemic Cardiomyopathy EF 30% on echo 07/11/17 on BB 6. HTN stable 7. DM2 with retinopathy, poorly controlled due to malcompliance, stressed importance of follow up and compliance with therapy. Hgb A1C 14.9 on 07/10 8. Anemia hgb stable 9. hypertriglyceridemia on statin 10. Tobacco dependence. Discussed smoking cessation
[2017-07-13 15:35] LABS: Urine Sodium 33 mmol/L (Not Establ.)
[2017-07-13 15:41] LABS: Protein, Urine (Random) 2006.2 mg/dL (<11.9)
[2017-07-13] MEDS: Acetaminophen 325 MG Tablet 650 MG PO (16:59)
[2017-07-13 17:06] LABS: Bedside Glucose 221 mg/dL (70-110)
[2017-07-13] MEDS: Sodium Bicarbonate 75 MEQ in 0.45% Normal Saline 1,000 ML 60 MEQ IV (20:05)
[2017-07-13] MEDS: Atorvastatin Calcium 40 MG Tablet PO (21:14)
[2017-07-13 21:26] LABS: Bedside Glucose 294 mg/dL (70-110)
[2017-07-14] VITALS (13 sets, daily range): BP systolic 145–186; BP diastolic 69–76; PULSE 57–72; RESP 16–20; TEMP 36.6–36.7; O2SAT 95–99
[2017-07-14 07:01] LABS: Bedside Glucose 165 mg/dL (70-110)
[2017-07-14 07:30] LABS: Albumin, Serum 1.5 g/dL (3.2-5.0); BUN 77 mg/dL (7-18); BUN/Creat Ratio 52.4 RATIO (10-20); Calcium,Total 7.4 mg/dL (8.5-10.1); Chloride 108 mmol/L (98-107); Creatinine, Serum 1.47 mg/dL (0.55-1.02); EST Glomerular Filtration Rate 38 mL/min (>60); Est Glom Filt Rate - Afr Amer 46 mL/min (>60); Estimated Creatinine Clearance 38.65 ml/min; Glucose 139 mg/dL (74-106); Sodium Level 133 mmol/L (136-145)
[2017-07-14] MEDS: Acetaminophen 325 MG Tablet 650 MG PO ×2 (08:15→21:30)
[2017-07-14] MEDS: Metoprolol Tartrate 25 MG Tablet PO ×2 (08:18→21:31)
[2017-07-14] MEDS: Clopidogrel Bisulfate 75 MG Tablet PO (08:19)
--- NOTE | 2017-07-14 10:06 | PN.CARD_ITS ---
Subjectve: The patient was seen and evaluated and appears to be doing well. Objective: Vital Signs Temp Pulse Resp BP Pulse Ox 98.1 F 67 18 150/69 H 95 07/14/17 08:16 07/14/17 08:18 07/14/17 08:16 07/14/17 08:16 07/14/17 08:16 Oxygen Delivery Method Room Air Weight: 137 lb 12.623 oz Body Mass Index (BMI) 23.3 Intake and Output for Last 24 Hours 07/12/17 07/13/17 07/14/17 23:59 23:59 23:59 Intake Total 2075 / 2075 3489 / 3489 367 / 367 Output Total 425 / 425 700 / 700 125 / 125 Balance 1650 / 1650 2789 / 2789 242 / 242 General: Awake, Alert, Oriented x 3 HEENT: PERRL, EOMI, Sclera Non Icteric Neck: Supple, Good ROM, No Lymph Node Enlargement Lungs: Clear to auscultation Cardiovascular: Regular Rhythm, Normal S1, Normal S2, No Murmurs, No Rubs, No Gallops Vascular: No Carotid Bruits, Normal Femoral Pulses, Normal Radial Pulses, Normal Dorsalis Pedal Pulse, Normal Posterior Tibial Pulses Abdomen: Bowel Sounds Present, Soft, Non Tender, No HSM, No Organomegaly Extremities: No Cyanosis, No Clubbing, No edema Neurological: No Focal Motor or Sensory Deficit 07/14/17 06:30: Sodium 133 L, Potassium 5.0, Chloride 108 H, Carbon Dioxide 14.0 L, BUN 77 H, Creatinine 1.47 H, Est GFR (MDRD) Af Amer 46 L, Est GFR (MDRD ) Non-Af 38 L, BUN/Creatinine Ratio 52.4 H, Glucose 139 H, Calcium 7.4 L, Phosphorus 6.0 H Assessment/Plan 1. Non-ST elevation myocardial infarction. She presents with uncontrolled diabetes mellitus and is noted to have EKG changes as well as cardiac enzymes compatible with a non-ST elevation myocardial infarction. At this time the primary aim will be to control her blood sugar appropriately hydrate her until her renal function has improved and stabilized and then we will consider a cardiac catheterization. In the meantime she is being loaded with Plavix, treated with aspirin, and beta- oneal. She has listed a dye allergy which she said she experienced 40 years ago. In all likelihood it was not low molecular weight based contrast agent. Still appears to be in some fluid deficit with an elevated BUN and creatinine. This unfortunately appears to be getting worse. I would like to see this improve further before I give her any contrast agents. The patient has been seen by renal service and they have made adjustments to the IV fluids. I may defer cardiac catheterization until Sunday. I have discussed the above with the patient as well as with the nursing staff. 2. Hypertension Her blood pressure is noted to be uncontrolled at this time. After appropriate hydration she will be started on an RADHA inhibitor. At this particular time the beta-oneal can be initiated and she can be followed. Thank you for allowing me to participate in the care of your patient. Please don't hesitate to call if any issues arise
[2017-07-14 12:51] LABS: Bedside Glucose 218 mg/dL (70-110)
[2017-07-14] MEDS: Sodium Bicarbonate 75 MEQ in 0.45% Normal Saline 1,000 ML 60 MEQ IV (14:26)
--- NOTE | 2017-07-14 16:02 | PCM.PROGNOTE ---
Subjective: Patient seen and examined today, she has no complaints of any chest pain or shortness of breath. Patient's creatinine remains stable, nephrology saw the patient in consultation. Blood sugars are not adequately control at this time, I will have to adjust her insulin - Physical Exam General: Alert, Oriented x3, Cooperative, No apparent distress, Well developed, Well nourished HEENT: Atraumatic, PERRLA, EOMI, Normocephalic Oral: Moist Mucosa Neck: Supple, No JVD, No Nuchal Rigidity, Trachea Midline, Thyroid Normal Size and Texture Lungs: Clear to auscultation, Normal air movement, No rhonchi, No wheeze, No rales Cardiovascular: Regular rate, Regular Rhythm, Normal S1, Normal S2, No murmurs, No Ectopic Activity Abdomen: Bowel Sounds Present, Soft, Non Tender, Non-Distended, No hernias noted Extremities: No edema, Capillary Refill Less than 3 Seconds Skin: No rashes, No breakdown Musculoskeletal: No Tenderness to Palpation of Joints or Extremities Neurological: Cranial nerves II-XII grossly intact, Neuro grossly intact, Muscle tone normal, Sensory exam intact to light touch and pain, Coordination normal Psych/Mental Status: Normal Affect, Appropriate, Alert and oriented to time, place, person, mood and affect Vital Signs Temp Pulse Resp BP Pulse Ox 98.1 F 61 20 H 151/70 H 99 07/14/17 12:52 07/14/17 15:06 07/14/17 12:52 07/14/17 12:52 07/14/17 12:52 Oxygen Delivery Method Room Air Weight: 62.5 kg Body Mass Index (BMI) 23.3 Intake and Output for Last 24 Hours 07/12/17 07/13/17 07/14/17 23:59 23:59 23:59 Intake Total 2075 / 2075 3489 / 3489 896 / 896 Output Total 425 / 425 700 / 700 250 / 250 Balance 1650 / 1650 2789 / 2789 646 / 646 Laboratory Tests Past 24 Hrs 07/14/17 06:30 Sodium 133 L Potassium 5.0 Chloride 108 H Carbon Dioxide 14.0 L BUN 77 H Creatinine 1.47 H Estim Creat Clear Calc 38.65 Est GFR (MDRD) Af Amer 46 L Est GFR (MDRD) Non-Af 38 L BUN/Creatinine Ratio 52.4 H Glucose 139 H Calcium 7.4 L Phosphorus 6.0 H Albumin 1.5 L POC Glucose 07/14/17 07/14/17 07/13/17 12:43 06:57 21:10 POC Glucose 218 H 165 H 294 H 07/13/17 16:55 POC Glucose 221 H Assessment/Plan #1 [id number] seeing patient, the plan is for the patient to have a cardiac catheterization this admission #2 uncontrolled type 2 diabetes-secondary to poor patient compliance, I will adjust patient's medication #3 stage III chronic kidney disease secondary to diabetic nephropathy-nephrology is participating in her care #4 ischemic cardiomyopathy #5 hypertension #6 noncompliance with medical care as outpatient Code Visit Inpatient E&M: 68878 Subs Hosp L2
--- NOTE | 2017-07-14 16:06 | PN_ITS ---
Subjective: Patient seen and examined today, she has no complaints of any chest pain or shortness of breath. Patient's creatinine remains stable, nephrology saw the patient in consultation. Blood sugars are not adequately control at this time, I will have to adjust her insulin - Physical Exam General: Alert, Oriented x3, Cooperative, No apparent distress, Well developed, Well nourished HEENT: Atraumatic, PERRLA, EOMI, Normocephalic Oral: Moist Mucosa Neck: Supple, No JVD, No Nuchal Rigidity, Trachea Midline, Thyroid Normal Size and Texture Lungs: Clear to auscultation, Normal air movement, No rhonchi, No wheeze, No rales Cardiovascular: Regular rate, Regular Rhythm, Normal S1, Normal S2, No murmurs, No Ectopic Activity Abdomen: Bowel Sounds Present, Soft, Non Tender, Non-Distended, No hernias noted Extremities: No edema, Capillary Refill Less than 3 Seconds Skin: No rashes, No breakdown Musculoskeletal: No Tenderness to Palpation of Joints or Extremities Neurological: Cranial nerves II-XII grossly intact, Neuro grossly intact, Muscle tone normal, Sensory exam intact to light touch and pain, Coordination normal Psych/Mental Status: Normal Affect, Appropriate, Alert and oriented to time, place, person, mood and affect Vital Signs Temp Pulse Resp BP Pulse Ox 98.1 F 61 20 H 151/70 H 99 07/14/17 12:52 07/14/17 15:06 07/14/17 12:52 07/14/17 12:52 07/14/17 12:52 Oxygen Delivery Method Room Air Weight: 62.5 kg Body Mass Index (BMI) 23.3 Intake and Output for Last 24 Hours 07/12/17 07/13/17 07/14/17 23:59 23:59 23:59 Intake Total 2075 / 2075 3489 / 3489 896 / 896 Output Total 425 / 425 700 / 700 250 / 250 Balance 1650 / 1650 2789 / 2789 646 / 646 Laboratory Tests Past 24 Hrs 07/14/17 06:30 Sodium 133 L Potassium 5.0 Chloride 108 H Carbon Dioxide 14.0 L BUN 77 H Creatinine 1.47 H Estim Creat Clear Calc 38.65 Est GFR (MDRD) Af Amer 46 L Est GFR (MDRD) Non-Af 38 L BUN/Creatinine Ratio 52.4 H Glucose 139 H Calcium 7.4 L Phosphorus 6.0 H Albumin 1.5 L POC Glucose 07/14/17 07/14/17 07/13/17 12:43 06:57 21:10 POC Glucose 218 H 165 H 294 H 07/13/17 16:55 POC Glucose 221 H Assessment/Plan #1 [id number] seeing patient, the plan is for the patient to have a cardiac catheterization this admission #2 uncontrolled type 2 diabetes-secondary to poor patient compliance, I will adjust patient's medication #3 stage III chronic kidney disease secondary to diabetic nephropathy- nephrology is participating in her care #4 ischemic cardiomyopathy #5 hypertension #6 noncompliance with medical care as outpatient Code Visit Inpatient E&M: [id number] Subs Hosp L2
[2017-07-14 16:16] LABS: Bedside Glucose 166 mg/dL (70-110)
[2017-07-14] MEDS: Pantoprazole Sodium 40 MG Tablet PO (21:30)
[2017-07-14] MEDS: Atorvastatin Calcium 40 MG Tablet PO (21:31)
[2017-07-14] MEDS: 0.9% NaCl Peripheral Flush Adult/Peds IV (21:38)
[2017-07-15] VITALS (13 sets, daily range): BP systolic 135–162; BP diastolic 62–96; PULSE 60–75; RESP 16–18; TEMP 36.5–36.8; O2SAT 95–99
[2017-07-15 00:11] LABS: Bedside Glucose 266 mg/dL (70-110)
[2017-07-15 06:09] LABS: Albumin, Serum 1.5 g/dL (3.2-5.0); BUN 74 mg/dL (7-18); Calcium,Total 7.2 mg/dL (8.5-10.1); Chloride 107 mmol/L (98-107); Creatinine, Serum 1.48 mg/dL (0.55-1.02); EST Glomerular Filtration Rate 38 mL/min (>60); Est Glom Filt Rate - Afr Amer 46 mL/min (>60); Estimated Creatinine Clearance 38.39 ml/min; Glucose 87 mg/dL (74-106); Potassium 4.9 mmol/L (3.5-5.1); Sodium Level 134 mmol/L (136-145)
[2017-07-15 07:05] LABS: Bedside Glucose 84 mg/dL (70-110)
[2017-07-15] MEDS: Acetaminophen 325 MG Tablet 650 MG PO ×2 (08:42→19:49)
[2017-07-15] MEDS: Metoprolol Tartrate 25 MG Tablet PO ×2 (08:44→21:18)
[2017-07-15] MEDS: Clopidogrel Bisulfate 75 MG Tablet PO (08:44)
[2017-07-15] MEDS: Pantoprazole Sodium 40 MG Tablet PO (08:44)
--- NOTE | 2017-07-15 09:39 | NURSING ---
IV fluids discontinued at this time per physicians order
--- NOTE | 2017-07-15 10:16 | PCM.PN.CARD ---
Subjectve: Patient seen and evaluated. Complaints of abdominal bloating and leg tightness. Objective: Vital Signs Temp Pulse Resp BP Pulse Ox 97.9 F 69 18 135/62 H 95 07/15/17 08:40 07/15/17 08:44 07/15/17 08:40 07/15/17 08:44 07/15/17 08:40 Oxygen Delivery Method Room Air Weight: 138 lb 0.15 oz Body Mass Index (BMI) 23.3 Intake and Output for Last 24 Hours 07/13/17 07/14/17 07/16/17 23:59 23:59 00:59 Intake Total 3489 / 3489 2120 / 2120 291 / 291 Output Total 700 / 700 625 / 625 50 / 50 Balance 2789 / 2789 1495 / 1495 241 / 241 General: Awake, Alert, Oriented x 3, Ill Appearing HEENT: PERRL, EOMI, Sclera Non Icteric Neck: Supple, Good ROM, No Lymph Node Enlargement Lungs: Clear to auscultation Cardiovascular: Regular Rhythm, Normal S1, Normal S2, No Murmurs, No Rubs, No Gallops Vascular: No Carotid Bruits, Normal Femoral Pulses, Normal Radial Pulses, Normal Dorsalis Pedal Pulse, Normal Posterior Tibial Pulses Abdomen: Bowel Sounds Present, Soft, Non Tender, No HSM, No Organomegaly Extremities: No Cyanosis, No Clubbing, Bilateral Edema +1 Neurological: No Focal Motor or Sensory Deficit 07/15/17 05:30: Sodium 134 L, Potassium 4.9, Chloride 107, Carbon Dioxide 17.0 L, BUN 74 H, Creatinine 1.48 H, Est GFR (MDRD) Af Amer 46 L, Est GFR (MDRD) Non-Af 38 L, BUN/Creatinine Ratio 50.0 H, Glucose 87, Calcium 7.2 L, Phosphorus 6.0 H Rhythm: Normal sinus rhythm. Assessment/Plan 1. Non-ST elevation myocardial infarction. She presents with uncontrolled diabetes mellitus and is noted to have EKG changes as well as cardiac enzymes compatible with a non-ST elevation myocardial infarction. At this time the primary aim will be to control her blood sugar appropriately hydrate her until her renal function has improved and stabilized and then we will consider a cardiac catheterization. In the meantime she is being loaded with Plavix, treated with aspirin, and beta-oneal. She has listed a dye allergy which she said she experienced 40 years ago. In all likelihood it was not low molecular weight based contrast agent. Will prophylax in the Teacher'S Assistant. Still appears to be in some fluid deficit with an elevated BUN and creatinine. I have discussed this extensively with her primary physician as well as the supervisor commissary production. They feel that this is likely her baseline secondary to a multitude of factors including catabolic state. There is no evidence of GI bleed. She has been hydrated over the last few days with little improvement in her BUN. At this time it is felt that we should proceed with a cardiac catheterization with minimal contrast. Depending on the findings further recommendations will be made as to the timing for any intervention if needed. The risk benefits and alternatives have been explained to her in detail she understands and agrees to proceed. No left ventriculogram will be performed. 2. Hypertension Her blood pressure is noted to be uncontrolled at this time. After appropriate hydration she will be started on an RADHA inhibitor. At this particular time the beta-oneal can be initiated and she can be followed. Thank you for allowing me to participate in the care of your patient. Please don't hesitate to call if any issues arise
--- NOTE | 2017-07-15 10:19 | PN.CARD_ITS ---
Subjectve: Patient seen and evaluated. Complaints of abdominal bloating and leg tightness. Objective: Vital Signs Temp Pulse Resp BP Pulse Ox 97.9 F 69 18 135/62 H 95 07/15/17 08:40 07/15/17 08:44 07/15/17 08:40 07/15/17 08:44 07/15/17 08:40 Oxygen Delivery Method Room Air Weight: 138 lb 0.15 oz Body Mass Index (BMI) 23.3 Intake and Output for Last 24 Hours 07/13/17 07/14/17 07/16/17 23:59 23:59 00:59 Intake Total 3489 / 3489 2120 / 2120 291 / 291 Output Total 700 / 700 625 / 625 50 / 50 Balance 2789 / 2789 1495 / 1495 241 / 241 General: Awake, Alert, Oriented x 3, Ill Appearing HEENT: PERRL, EOMI, Sclera Non Icteric Neck: Supple, Good ROM, No Lymph Node Enlargement Lungs: Clear to auscultation Cardiovascular: Regular Rhythm, Normal S1, Normal S2, No Murmurs, No Rubs, No Gallops Vascular: No Carotid Bruits, Normal Femoral Pulses, Normal Radial Pulses, Normal Dorsalis Pedal Pulse, Normal Posterior Tibial Pulses Abdomen: Bowel Sounds Present, Soft, Non Tender, No HSM, No Organomegaly Extremities: No Cyanosis, No Clubbing, Bilateral Edema +1 Neurological: No Focal Motor or Sensory Deficit 07/15/17 05:30: Sodium 134 L, Potassium 4.9, Chloride 107, Carbon Dioxide 17.0 L , BUN 74 H, Creatinine 1.48 H, Est GFR (MDRD) Af Amer 46 L, Est GFR (MDRD) Non- Af 38 L, BUN/Creatinine Ratio 50.0 H, Glucose 87, Calcium 7.2 L, Phosphorus 6.0 H Rhythm: Normal sinus rhythm. Assessment/Plan 1. Non-ST elevation myocardial infarction. She presents with uncontrolled diabetes mellitus and is noted to have EKG changes as well as cardiac enzymes compatible with a non-ST elevation myocardial infarction. At this time the primary aim will be to control her blood sugar appropriately hydrate her until her renal function has improved and stabilized and then we will consider a cardiac catheterization. In the meantime she is being loaded with Plavix, treated with aspirin, and beta- oneal. She has listed a dye allergy which she said she experienced 40 years ago. In all likelihood it was not low molecular weight based contrast agent. Will prophylax in the Controller Instructor. Still appears to be in some fluid deficit with an elevated BUN and creatinine. I have discussed this extensively with her primary physician as well as the director investor relations. They feel that this is likely her baseline secondary to a multitude of factors including catabolic state. There is no evidence of GI bleed. She has been hydrated over the last few days with little improvement in her BUN. At this time it is felt that we should proceed with a cardiac catheterization with minimal contrast. Depending on the findings further recommendations will be made as to the timing for any intervention if needed. The risk benefits and alternatives have been explained to her in detail she understands and agrees to proceed. No left ventriculogram will be performed. 2. Hypertension Her blood pressure is noted to be uncontrolled at this time. After appropriate hydration she will be started on an RADHA inhibitor. At this particular time the beta-oneal can be initiated and she can be followed. Thank you for allowing me to participate in the care of your patient. Please don't hesitate to call if any issues arise
[2017-07-15] MEDS: Calcium Acetate 667 MG Capsule PO ×2 (11:10→17:58)
[2017-07-15 11:31] LABS: Bedside Glucose 174 mg/dL (70-110)
[2017-07-15] MEDS: Furosemide 40 MG/4 ML Vial IV (11:50)
[2017-07-15 11:57] LABS: Mucous, Urine 0 SEEN /hpf (<or=2+)
[2017-07-15 12:13] LABS: Color, Urine Red (Yellow); Glucose, Dipstick Normal (Normal); Ketone-Dipstick 5 mg/dl (Negative); Leukocyte Esterase-Dipstick 500 /ul (Negative); Nitrite-Dipstick Positive (Negative); Occult Blood-Urine 250 /ul (Negative); Protein-Dipstick 500 mg/dl (Negative); Urine Bilirubin Dipstick Negative (Negative); Urine Clarity Cloudy (Clear); Urine Urobilinogen Normal (Normal)
[2017-07-15 12:20] LABS: Bacteria 1+ /hpf (None Seen); Red Blood Cells-Urine > 100 SEEN /hpf (0-5); Squamous Epithelial Cells - UA 0-5 SEEN /hpf (5-10); White Blood Cells >100 SEEN /hpf (0-5)
--- NOTE | 2017-07-15 15:10 | PCM.PN.REN ---
Subjective: complains of abdominal distension, leg edema. Denied CP, SOB, NV. - Physical Exam General: Alert, Oriented x3, Cooperative, No apparent distress Lungs: Clear to auscultation Cardiovascular: Regular rate Abdomen: Bowel Sounds Present, Soft, Distended - mild Extremities: Edema Musculoskeletal: Muscle Wasting Neurological: Cranial nerves II-XII grossly intact Psych/Mental Status: Normal Affect Vital Signs Temp Pulse Resp BP Pulse Ox 97.7 F L 64 18 162/62 H 99 07/15/17 14:38 07/15/17 14:38 07/15/17 14:38 07/15/17 14:38 07/15/17 14:38 Oxygen Delivery Method Room Air Weight: 62.6 kg Body Mass Index (BMI) 23.3 Intake and Output for Last 24 Hours 07/13/17 07/14/17 07/16/17 23:59 23:59 00:59 Intake Total 3489 / 3489 2120 / 2120 816 / 816 Output Total 700 / 700 625 / 625 205 / 205 Balance 2789 / 2789 1495 / 1495 611 / 611 Laboratory Tests Past 24 Hrs 07/15/17 07/15/17 05:30 11:40 Sodium 134 L Potassium 4.9 Chloride 107 Carbon Dioxide 17.0 L BUN 74 H Creatinine 1.48 H Estim Creat Clear Calc 38.39 Est GFR (MDRD) Af Amer 46 L Est GFR (MDRD) Non-Af 38 L BUN/Creatinine Ratio 50.0 H Glucose 87 Calcium 7.2 L Phosphorus 6.0 H Albumin 1.5 L Urine Color Red Urine Clarity Cloudy Urine pH 5.0 Ur Specific [place] 1.020 Urine Protein 500 H Urine Glucose (UA) Normal Urine Ketones 5 H Urine Occult Blood 250 H Urine Nitrite Positive H Urine Bilirubin Negative Urine Urobilinogen Normal Ur Leukocyte Esterase 500 H Urine RBC > 100 SEEN Urine WBC >100 SEEN Ur Squamous Epith Cells 0-5 SEEN Urine Bacteria 1+ Urine Mucus 0 SEEN POC Glucose 07/15/17 07/15/17 07/14/17 11:09 06:42 21:27 POC Glucose 174 H 84 266 H 07/14/17 16:13 POC Glucose 166 H Assessment/Plan 1. CKD stage 3 due to poorly controlled diabetic nephropathy with nephrotic proteinuria UPCR 14.9g/gCr protein with edema, retinopathy. 2. Nephrotic syndrome from diabetic nephropathy. 3. Metabolic acidosis improved with bicarb drip. May be from ketotic state. Check UA for ketones. 4. NSTEMI on plavix, heart cath in am. Discussed risk of contrast nephropathy and risk of requiring dialysis. Start hydration 6hrs before cath 1cc/kg/hr. Add mucomyst. 5. Ischemic Cardiomyopathy EF 30% on echo 07/11/17 on BB. Hold ACEI due to hx hyperkalemia. Heart cath in am. 6. HTN stable 7. DM2 with retinopathy, poorly controlled diabetes due to malcompliance, stressed importance of follow up and compliance with therapy. Hgb A1C 14.9 on 07/10 8. Anemia hgb stable 9. hypertriglyceridemia on statin 10. Tobacco dependence. Discussed smoking cessation
--- NOTE | 2017-07-15 15:11 | PCM.PROGNOTE ---
Subjective: Patient seen and examined today, I discussed her care with cardiology, cardiology did like her fluid stopped due to increasing peripheral edema, patient has no complaints of any shortness of breath. I also talked with nephrology about her fluid status nephrology is agreed that the fluid should be stopped. Cardiology would like the patient to receive a small amount of fluid starting this evening in preparation for her heart cath tomorrow. - Physical Exam General: Alert, Oriented x3, Cooperative, No apparent distress, Well developed, Well nourished HEENT: Atraumatic, PERRLA, EOMI, Normocephalic Oral: Moist Mucosa Neck: Supple, No JVD, No Nuchal Rigidity, Trachea Midline Lungs: Clear to auscultation, Normal air movement, No rhonchi, No wheeze, No rales Cardiovascular: Regular rate, Regular Rhythm, Normal S1, Normal S2, No murmurs, No Ectopic Activity, PMI Normal, No rub noted, No Gallop Abdomen: Bowel Sounds Present, Soft, Non Tender, Non-Distended, No hernias noted Extremities: Capillary Refill Less than 3 Seconds, Edema - Generalized lower leg edema is noted which is nonpitting Skin: No rashes, No breakdown Neurological: Cranial nerves II-XII grossly intact, Neuro grossly intact, Sensory exam intact to light touch and pain, Coordination normal Psych/Mental Status: Normal Affect, Appropriate, Alert and oriented to time, place, person, mood and affect Vital Signs Temp Pulse Resp BP Pulse Ox 97.7 F L 64 18 162/62 H 99 07/15/17 14:38 07/15/17 14:38 07/15/17 14:38 07/15/17 14:38 07/15/17 14:38 Oxygen Delivery Method Room Air Weight: 62.6 kg Body Mass Index (BMI) 23.3 Intake and Output for Last 24 Hours 07/13/17 07/14/17 07/16/17 23:59 23:59 00:59 Intake Total 3489 / 3489 2120 / 2120 816 / 816 Output Total 700 / 700 625 / 625 205 / 205 Balance 2789 / 2789 1495 / 1495 611 / 611 Laboratory Tests Past 24 Hrs 07/15/17 07/15/17 05:30 11:40 Sodium 134 L Potassium 4.9 Chloride 107 Carbon Dioxide 17.0 L BUN 74 H Creatinine 1.48 H Estim Creat Clear Calc 38.39 Est GFR (MDRD) Af Amer 46 L Est GFR (MDRD) Non-Af 38 L BUN/Creatinine Ratio 50.0 H Glucose 87 Calcium 7.2 L Phosphorus 6.0 H Albumin 1.5 L Urine Color Red Urine Clarity Cloudy Urine pH 5.0 Ur Specific [place] 1.020 Urine Protein 500 H Urine Glucose (UA) Normal Urine Ketones 5 H Urine Occult Blood 250 H Urine Nitrite Positive H Urine Bilirubin Negative Urine Urobilinogen Normal Ur Leukocyte Esterase 500 H Urine RBC > 100 SEEN Urine WBC >100 SEEN Ur Squamous Epith Cells 0-5 SEEN Urine Bacteria 1+ Urine Mucus 0 SEEN POC Glucose 07/15/17 07/15/17 07/14/17 11:09 06:42 21:27 POC Glucose 174 H 84 266 H 07/14/17 16:13 POC Glucose 166 H Assessment/Plan #1 [id number] seeing patient, the plan is for the patient to have a cardiac catheterization tomorrow #2 uncontrolled type 2 diabetes-secondary to poor patient compliance, patient's blood sugar is better today #3 stage III chronic kidney disease secondary to diabetic nephropathy-nephrology is participating in her care #4 ischemic cardiomyopathy-EF 30%, there may be an outside possibility this is not an ischemic cardiomyopathy however #5 hypertension #6 noncompliance with medical care as outpatient Code Visit Inpatient E&M: 35181 Subs Hosp L2
[2017-07-15] MEDS: Acetylcysteine (Mucomyst Oral) 20% SOLN 600 MG PO ×2 (16:55→21:24)
[2017-07-15 18:11] LABS: Bedside Glucose 249 mg/dL (70-110)
[2017-07-15] MEDS: 0.9% NaCl Peripheral Flush Adult/Peds IV (19:50)
[2017-07-15] MEDS: Atorvastatin Calcium 40 MG Tablet PO (21:18)
[2017-07-15 22:06] LABS: Bedside Glucose 235 mg/dL (70-110)
[2017-07-15 23:22] LABS: Color, Urine Yellow (Yellow); Glucose, Dipstick 50 mg/dl (Normal); Ketone-Dipstick Negative (Negative); Leukocyte Esterase-Dipstick 500 /ul (Negative); Nitrite-Dipstick Negative (Negative); Occult Blood-Urine 250 /ul (Negative); Protein-Dipstick 500 mg/dl (Negative); Urine Bilirubin Dipstick Negative (Negative); Urine Clarity Cloudy (Clear); Urine Urobilinogen Normal (Normal)
[2017-07-16] VITALS (23 sets, daily range): BP systolic 117–174; BP diastolic 59–88; PULSE 59–79; RESP 14–18; TEMP 36.4–37.2; O2SAT 94–96
[2017-07-16 05:36] LABS: Absolute Lymphocyte Count 2.04 X10^3/ul (0.83-4.51); Absolute Neutrophil Count 6.8 X10^3/uL (2.0-7.7); Basophil# 0.03 X10^3/uL; Basophil% 0.3 % (0-1); Eosinophil# 0.27 X10^3/uL; Eosinophils% 2.6 % (0-5); Hematocrit 33.1 % (37-47); Hemoglobin 11.8 g/dl (12.0-15.0); Lymphocyte # 2.04 X10^3/ul (4.0); Lymphocyte % 19.3 % (19-41); Mean Corp Hgb Conc 35.6 g/gl (32-36); Mean Corpuscular Hgb 32.1 pg (27.0-32.0); Mean Corpuscular Volume 89.9 fL (81-99); Mean Platelet Vol. 9.6 fl (6.2-12.0); Monocyte# 1.31 X10^3/uL; Monocyte% 12.4 % (0-10); Neutrophil # 6.75 X10^3/uL (2.7-7.7); Platelet Count 339 K/mm3 (150-450); RBC Distribution Width CV 12.4 % (11.6-14.6); RBC Distribution Width SD 39.8 fl (35.1-43.9); Red Blood Count 3.68 M/mm3 (4.2-5.4); White Blood Count 10.6 K/mm3 (4.4-11.0)
[2017-07-16 05:42] LABS: POSITIVE COUNT NO; POSITIVE DIFFERENTIAL NO; POSITIVE MORPHOLOGY NO
--- NOTE | 2017-07-16 05:55 | EKG12_ITS ---
Test Reason : AM Blood Pressure : / mmHG Vent. Rate : 063 BPM Atrial Rate : 063 BPM P-R Int : 132 ms QRS Dur : 082 ms QT Int : 404 ms P-R-T Axes : 053 -11 149 degrees QTc Int : 413 ms Normal sinus rhythm Low voltage QRS Borderline ECG When compared with ECG of 13-JUL-2017 05:34, MANUAL COMPARISON REQUIRED, DATA IS UNCONFIRMED Confirmed by BETI BALLESTEROS, NATHAN ([id number]), control system manager MARGARET HUBBARD ([id number]) on 07/18/2017 4:16:07 PM Referred By: YADIRA Confirmed By:NATHAN BANG MD
[2017-07-16 05:57] LABS: Anion Gap 10 (5-15); BUN 77 mg/dL (7-18); BUN/Creat Ratio 46.7 RATIO (10-20); Calcium,Total 7.1 mg/dL (8.5-10.1); Chloride 106 mmol/L (98-107); Creatinine, Serum 1.65 mg/dL (0.55-1.02); EST Glomerular Filtration Rate 33 mL/min (>60); Est Glom Filt Rate - Afr Amer 40 mL/min (>60); Estimated Creatinine Clearance 37.13 ml/min; Glucose 149 mg/dL (74-106); Potassium 4.9 mmol/L (3.5-5.1); Sodium Level 133 mmol/L (136-145)
[2017-07-16] MEDS: Metoprolol Tartrate 25 MG Tablet PO ×2 (05:57→22:19)
[2017-07-16] MEDS: Clopidogrel Bisulfate 75 MG Tablet PO (05:58)
[2017-07-16] MEDS: 0.9% NaCl Peripheral Flush Adult/Peds IV (05:58)
[2017-07-16] MEDS: 0.9% Normal Saline 1,000 ML 60 ML IV (05:58)
[2017-07-16 06:05] LABS: International Normalized Ratio 1.1
[2017-07-16 06:06] LABS: Partial Thromboplast Time 29.6 Seconds (24.1-36.2)
[2017-07-16 06:56] LABS: Bedside Glucose 128 mg/dL (70-110)
--- NOTE | 2017-07-16 06:56 | NURSING ---
Called report to [employer] in [employer] tin can
--- NOTE | 2017-07-16 07:56 | PN.CARD_ITS ---
Subjectve: Patient seen and evaluated. Objective: Vital Signs Temp Pulse Resp BP Pulse Ox 97.8 F 63 14 126/69 H 95 07/16/17 05:55 07/16/17 05:57 07/16/17 05:55 07/16/17 05:57 07/16/17 05:55 Oxygen Delivery Method Room Air Weight: 148 lb 9.465 oz Body Mass Index (BMI) 23.3 Intake and Output for Last 24 Hours 07/14/17 07/15/17 07/16/17 22:59 23:59 23:59 Intake Total 60 / 60 Output Total 100 / 100 Balance -40 / -40 General: Awake, Alert, Oriented x 3 HEENT: PERRL, EOMI, Sclera Non Icteric Neck: Supple, Good ROM, No Lymph Node Enlargement Lungs: Clear to auscultation Cardiovascular: Regular Rhythm, Normal S1, Normal S2, No Murmurs, No Rubs, No Gallops Vascular: No Carotid Bruits, Normal Femoral Pulses, Normal Radial Pulses, Normal Dorsalis Pedal Pulse, Normal Posterior Tibial Pulses Abdomen: Bowel Sounds Present, Soft, Non Tender, No HSM, No Organomegaly Extremities: No Cyanosis, No Clubbing, No edema Neurological: No Focal Motor or Sensory Deficit 07/15/17 11:40: Urine Color Red, Urine Clarity Cloudy, Urine pH 5.0, Ur Specific [place] 1.020, Urine Protein 500 H, Urine Glucose (UA) Normal, Urine Ketones 5 H, Urine Occult Blood 250 H, Urine Nitrite Positive H, Urine Bilirubin Negative, Urine Urobilinogen Normal, Ur Leukocyte Esterase 500 H, Urine RBC > 100 SEEN, Urine WBC >100 SEEN 07/15/17 23:00: Urine Color Yellow, Urine Clarity Cloudy, Urine pH 6.0, Ur Specific [place] 1.020, Urine Protein 500 H, Urine Glucose (UA) 50 H, Urine Ketones Negative, Urine Occult Blood 250 H, Urine Nitrite Negative, Urine Bilirubin Negative, Urine Urobilinogen Normal, Ur Leukocyte Esterase 500 H 07/16/17 05:14: Sodium 133 L, Potassium 4.9, Chloride 106, Carbon Dioxide 17.0 L , Anion Gap 10, BUN 77 H, Creatinine 1.65 H, Est GFR (MDRD) Af Amer 40 L, Est GFR (MDRD) Non-Af 33 L, BUN/Creatinine Ratio 46.7 H, Glucose 149 H, Calcium 7.1 L 07/16/17 05:14: WBC 10.6, RBC 3.68 L, Hgb 11.8 L, Hct 33.1 L, MCV 89.9, MCH 32.1 H, MCHC 35.6, RDW 12.4, RDW Differential 39.8, Plt Count 339, MPV 9.6, Immature Gran % (Auto) 1.400 H, Neut % (Auto) 64.0, Lymph % (Auto) 19.3, [place] % (Auto) 12.4 H, Eos % (Auto) 2.6, Baso % (Auto) 0.3, Absolute Neuts (auto) 6.8, Total Counted Not Reportable 07/16/17 05:14: PT 14.0, INR 1.1, APTT 29.6 Assessment/Plan 1. Non-ST elevation myocardial infarction. She presents with uncontrolled diabetes mellitus and is noted to have EKG changes as well as cardiac enzymes compatible with a non-ST elevation myocardial infarction. She underwent a cardiac catheterization today which demonstrated the following: Left main coronary artery with mild disease: Left anterior descending artery with severe proximal to mid segment disease and mild to moderate distal disease. Dominant left circumflex artery with proximal 70-80% stenosis First obtuse marginal branch with 70-80% proximal stenosis. Nondominant right coronary artery with no significant stenosis. Globally reduced left ventricular ejection fraction estimated EF 30% We will discuss with interventionalist about timing for angioplasty to the left anterior descending artery. In addition due to patient's precarious renal function as well as urine status. This may need to be treated as well as the patient hydrated appropriately. 2. Hypertension Her blood pressure is noted to be uncontrolled at this time. After appropriate hydration she will be started on an RADHA inhibitor. At this particular time the beta-oneal can be initiated and she can be followed. Thank you for allowing me to participate in the care of your patient. Please don't hesitate to call if any issues arise
--- NOTE | 2017-07-16 08:08 | CL.D_ITS ---
Patient Name: JAYE FELIX Study Date: 07/16/2017 Performing: Sriram Case MD Ht: 59.84 inches 152 cm : 1955 Wt: 138.89 lbs 63 kg Age: 62 Gender: female BSA: 1.6 PROCEDURE(S) PERFORMED [id number] CLINICAL PROFILE AND INDICATIONS INDICATIONS: 62-year-old lady with a history of non-ST elevation myocardial infarction. Stress/Imaging Stress/Image Study Performed: No CONCLUSIONS Severe two-vessel disease. And depressed left ventricular systolic function. RECOMMENDATIONS Consider staged angioplasty. Will discuss with interventionalist DESCRIPTION OF PROCEDURE The patient arrived to the procedure lab. The risks and benefits of the procedure as well as a full d escription of our services here and current unavailability of surgical backup were fully explained to the patient and/or their significant other prior to the catheterization. The Timeout was completed, verifying the correct patient and procedure. The patient's procedural site was prepped and draped in the usual fashion. Local anesthetic was given subcutaneously to left groin region with Lidocaine 2%. Using a modified Seldinger technique, arterial access was obtained via the left femoral artery, a 5Fr sheath was inserted. Left Coronary Artery selective angiography was performed in multiple views usi ng a 5 Fr. JL4 catheter. Right Coronary Artery selective angiography was then performed in multiple v iews using a 5 Fr. 3DRC (Rosendo) catheter.The arterial sheath was pulled and manual compression regis lied until hemostasis is achieved. CORONARY ANGIOGRAPHY DOMINANCE: Left Dominant LEFT HEART ASSESSMENT Left Ventricular Ejection Fraction: by Echo 30 % Apical Akinesis Depressed Left Ventricular systolic function 45cc dye used only LEFT MAIN: Mild calcification, Non-obstructive LEFT ANTERIOR DECENDING ARTERY: PROX LAD: Severe diffuse disease in a small vessel with the most significant being approximately 90% stenosis MID LAD: Diffusely diseased up to 60 % CIRCUMFLEX ARTERY: OSTIAL CIRC: 70 % Stenosis OM 1: Ostial - 70 % Stenosis RIGHT CORONARY ARTERY: Mild luminal irregularities COMPLICATIONS No Complications PROCEDURE MEDICATIONS Versed 0.5 mg IV Oxygen: 2 L/min via nasal cannula Benadryl 25 mg IV 07/16/2017 07:16:19 Aspirin (325mg) 1 Tabs PO @ 07/16/2017 07:31:24 Solu-medrol 125 mg IV 07/16/2017 07:16:19 SUMMARY OF HEMODYNAMIC DATA Time AIR REST ECG 07:11:34 ECG 07:11:44 AO 175/99 (126) SA 07:38:43 AO 145/94 (116) 07:40:28 Signed By Sriram Case MD On 07/16/2017 08:07:35 Sriram Case MD
[2017-07-16] MEDS: Calcium Acetate 667 MG Capsule PO ×3 (09:23→16:40)
[2017-07-16] MEDS: Pantoprazole Sodium 40 MG Tablet PO (09:24)
[2017-07-16] MEDS: Acetylcysteine (Mucomyst Oral) 20% SOLN 600 MG PO ×2 (09:29→22:37)
[2017-07-16] MEDS: Acetaminophen 325 MG Tablet 650 MG PO ×2 (11:49→22:37)
[2017-07-16 12:01] LABS: Bedside Glucose 186 mg/dL (70-110)
[2017-07-16 12:08] LABS: Bacteria 0 SEEN /hpf (None Seen); Mucous, Urine 0 SEEN /hpf (<or=2+); Squamous Epithelial Cells - UA 0 SEEN /hpf (5-10)
[2017-07-16 12:50] LABS: Color, Urine Red (Yellow); Glucose, Dipstick Normal (Normal); Ketone-Dipstick Negative (Negative); Leukocyte Esterase-Dipstick 500 /ul (Negative); Nitrite-Dipstick Negative (Negative); Occult Blood-Urine 250 /ul (Negative); Protein-Dipstick 500 mg/dl (Negative); Specific Gravity, Urine 1.015 (1.002-1.030); Urine Bilirubin Dipstick Negative (Negative); Urine Clarity Turbid (Clear); Urine Urobilinogen Normal (Normal)
[2017-07-16 13:05] LABS: Red Blood Cells-Urine > 100 SEEN /hpf (0-5); White Blood Cells >100 SEEN /hpf (0-5)
--- NOTE | 2017-07-16 13:16 | PCM.PROGNOTE ---
<Alejo Guajardo - Last Filed: 07/16/17 13:16> Subjective: Pt resting comfortably in bed S/p cath this AM, no stents placed. She is most concerned about the swelling in her legs and abdomen. She does not have any CP. She has no abdominal pain. She denies cough, CP, fevers, or chills. She has had a arroyo catheter in place since admission. She did not have one prior. She did not have dysuria. Will trial arroyo out today. - Physical Exam General: Alert, Oriented x3, Cooperative HEENT: Atraumatic, PERRLA, EOMI, Normocephalic Neck: Supple, No JVD, Negative Carotid Bruits Lungs: Clear to auscultation, Normal air movement Cardiovascular: Regular rate, No murmurs Abdomen: Bowel Sounds Present, Soft, Non Tender Extremities: No edema, Capillary Refill Less than 3 Seconds, Edema - 2+ pitting edema BLE. Skin: No rashes, No breakdown Musculoskeletal: No Tenderness to Palpation of Joints or Extremities Neurological: Cranial nerves II-XII grossly intact Psych/Mental Status: Normal Affect, Appropriate Vital Signs Temp Pulse Resp BP Pulse Ox 97.7 F L 73 16 167/83 H 95 07/16/17 13:00 07/16/17 13:00 07/16/17 13:00 07/16/17 13:00 07/16/17 13:00 Oxygen Delivery Method Room Air Weight: 67.4 kg Body Mass Index (BMI) 23.3 Intake and Output for Last 24 Hours 07/14/17 07/15/17 07/16/17 22:59 23:59 23:59 Intake Total 1218 / 1218 Output Total 250 / 250 Balance 968 / 968 Laboratory Tests Past 24 Hrs 07/15/17 07/16/17 07/16/17 23:00 05:14 05:14 WBC 10.6 RBC 3.68 L Hgb 11.8 L Hct 33.1 L MCV 89.9 MCH 32.1 H MCHC 35.6 RDW 12.4 RDW Differential 39.8 Plt Count 339 MPV 9.6 Immature Gran % (Auto) 1.400 H Neut % (Auto) 64.0 Lymph % (Auto) 19.3 [place] % (Auto) 12.4 H Eos % (Auto) 2.6 Baso % (Auto) 0.3 Absolute Neuts (auto) 6.8 Absolute Lymphs (auto) 2.04 Total Counted Not Reportable PT INR APTT Sodium 133 L Potassium 4.9 Chloride 106 Carbon Dioxide 17.0 L Anion Gap 10 BUN 77 H Creatinine 1.65 H Estim Creat Clear Calc 37.13 Est GFR (MDRD) Af Amer 40 L Est GFR (MDRD) Non-Af 33 L BUN/Creatinine Ratio 46.7 H Glucose 149 H Calcium 7.1 L Urine Color Yellow Urine Clarity Cloudy Urine pH 6.0 Ur Specific [place] 1.020 Urine Protein 500 H Urine Glucose (UA) 50 H Urine Ketones Negative Urine Occult Blood 250 H Urine Nitrite Negative Urine Bilirubin Negative Urine Urobilinogen Normal Ur Leukocyte Esterase 500 H Urine RBC Urine WBC Ur Squamous Epith Cells Urine Bacteria Urine Mucus 07/16/17 07/16/17 05:14 11:55 WBC RBC Hgb Hct MCV MCH MCHC RDW RDW Differential Plt Count MPV Immature Gran % (Auto) Neut % (Auto) Lymph % (Auto) [place] % (Auto) Eos % (Auto) Baso % (Auto) Absolute Neuts (auto) Absolute Lymphs (auto) Total Counted PT 14.0 INR 1.1 APTT 29.6 Sodium Potassium Chloride Carbon Dioxide Anion Gap BUN Creatinine Estim Creat Clear Calc Est GFR (MDRD) Af Amer Est GFR (MDRD) Non-Af BUN/Creatinine Ratio Glucose Calcium Urine Color Red Urine Clarity Turbid Urine pH 5.0 Ur Specific [place] 1.015 Urine Protein 500 H Urine Glucose (UA) Normal Urine Ketones Negative Urine Occult Blood 250 H Urine Nitrite Negative Urine Bilirubin Negative Urine Urobilinogen Normal Ur Leukocyte Esterase 500 H Urine RBC > 100 SEEN Urine WBC >100 SEEN Ur Squamous Epith Cells 0 SEEN Urine Bacteria 0 SEEN Urine Mucus 0 SEEN POC Glucose 07/16/17 07/16/17 07/15/17 11:39 06:35 21:14 POC Glucose 186 H 128 H 235 H 07/15/17 17:55 POC Glucose 249 H Assessment/Plan 1. NSTEMI - s/p cath today, see report, severe dz. May need CABG. Care as directed by cardiology. Maintain on asa, statin, plavix, metoprolol, RADHA deferred 2/2 poor renal function. 2. CKD III - will likely be fluctuant after heart cath. Dr. Brady is following. No RADHA for now. 3. Ischemic cardiomyopathy - EF 30%, pt has some swelling in the LE, defer diuresis until renal function improves. No resp issues at this time. 4. DMt2 - titrate insulin therapy. Very poorly controlled. A1C 14.9 on 07/10/17. 5. HTN - poorly controlled, trend and adjust as needed 6. Mild normocytic anemia - will trend. Stable. 7. Mild hyponatremia - unclear significance. 8. Concern for UTI - possibly associated with arroyo cath. DC arroyo. Repeat UA after arroyo DC still poor. Cx pending. Start rocephin. DVT ppx: Heparin DC planning: pt had some bleeding following the cath, will monitor overnight. This patient was seen by Alejo Guajardo PA-C under the supervision of Doctor Yovanny. <Danis Hairston - Last Filed: 07/16/17 15:58> - Physical Exam Vital Signs Temp Pulse Resp BP Pulse Ox 99 F 76 16 141/71 H 95 07/16/17 14:56 07/16/17 14:56 07/16/17 14:56 07/16/17 14:56 07/16/17 14:56 Oxygen Delivery Method Room Air Weight: 67.4 kg Body Mass Index (BMI) 23.3 Intake and Output for Last 24 Hours 07/14/17 07/15/17 07/16/17 22:59 23:59 23:59 Intake Total 1218 / 1218 Output Total 250 / 250 Balance 968 / 968 Laboratory Tests Past 24 Hrs 07/15/17 07/16/17 07/16/17 23:00 05:14 05:14 WBC 10.6 RBC 3.68 L Hgb 11.8 L Hct 33.1 L MCV 89.9 MCH 32.1 H MCHC 35.6 RDW 12.4 RDW Differential 39.8 Plt Count 339 MPV 9.6 Immature Gran % (Auto) 1.400 H Neut % (Auto) 64.0 Lymph % (Auto) 19.3 [place] % (Auto) 12.4 H Eos % (Auto) 2.6 Baso % (Auto) 0.3 Absolute Neuts (auto) 6.8 Absolute Lymphs (auto) 2.04 Total Counted Not Reportable PT INR APTT Sodium 133 L Potassium 4.9 Chloride 106 Carbon Dioxide 17.0 L Anion Gap 10 BUN 77 H Creatinine 1.65 H Estim Creat Clear Calc 37.13 Est GFR (MDRD) Af Amer 40 L Est GFR (MDRD) Non-Af 33 L BUN/Creatinine Ratio 46.7 H Glucose 149 H Calcium 7.1 L Urine Color Yellow Urine Clarity Cloudy Urine pH 6.0 Ur Specific [place] 1.020 Urine Protein 500 H Urine Glucose (UA) 50 H Urine Ketones Negative Urine Occult Blood 250 H Urine Nitrite Negative Urine Bilirubin Negative Urine Urobilinogen Normal Ur Leukocyte Esterase 500 H Urine RBC Urine WBC Ur Squamous Epith Cells Urine Bacteria Urine Mucus 07/16/17 07/16/17 05:14 11:55 WBC RBC Hgb Hct MCV MCH MCHC RDW RDW Differential Plt Count MPV Immature Gran % (Auto) Neut % (Auto) Lymph % (Auto) [place] % (Auto) Eos % (Auto) Baso % (Auto) Absolute Neuts (auto) Absolute Lymphs (auto) Total Counted PT 14.0 INR 1.1 APTT 29.6 Sodium Potassium Chloride Carbon Dioxide Anion Gap BUN Creatinine Estim Creat Clear Calc Est GFR (MDRD) Af Amer Est GFR (MDRD) Non-Af BUN/Creatinine Ratio Glucose Calcium Urine Color Red Urine Clarity Turbid Urine pH 5.0 Ur Specific [place] 1.015 Urine Protein 500 H Urine Glucose (UA) Normal Urine Ketones Negative Urine Occult Blood 250 H Urine Nitrite Negative Urine Bilirubin Negative Urine Urobilinogen Normal Ur Leukocyte Esterase 500 H Urine RBC > 100 SEEN Urine WBC >100 SEEN Ur Squamous Epith Cells 0 SEEN Urine Bacteria 0 SEEN Urine Mucus 0 SEEN POC Glucose 07/16/17 07/16/17 07/15/17 11:39 06:35 21:14 POC Glucose 186 H 128 H 235 H 07/15/17 17:55 POC Glucose 249 H Assessment/Plan This patient was seen in conjunction with Alejo Guajardo PA-C. I have independently interviewed and examined the patient and reviewed pertinent historical, laboratory, and other data. Please refer to Alejo Guajardo PA-C note for details of this patient's presentation, findings, and recommendations. I have reviewed Alejo Guajardo PA-C note and concur with documented findings. In brief, patient is a 72-year-old female with poorly controlled diabetes who presented with generalized weakness and non specific symptoms found to have hyperosmolar nonketotic state in addition to elevated troponin consistent with NSTEMI. Underwent left heart catheterization on 07/16/[address] Smythori was found to have severe multivessel disease for which cardiology recommended optimization of medical therapy with possible consideration for CABG when medically stable. Patient was also found to have turbid urine Physical Examination: GENERAL: cooperative HEENT: Clear conjunctiva, NECK; supple, normal thyroid, CHEST: Diminished to auscultation bilaterally, HEART: Regular S1 S2, no audible murmurs ABDOMEN: soft, non-tender, normoactive bowel sounds, EXTREMITIES: No clubbing, no cyanosis. [employer]: Awake, no lateralizing signs. SKIN: No Rash Assessment: 1. Diabetes mellitus type 2 presented with hyperosmolar nonketotic state is resolved 2. Acute non-STEMI 3. Coronary artery disease; multivessel severe disease 4. Chronic Kidney disease stage III 5. Ischemic cardiac myopathy with an ejection fraction of 30% 6. Hyponatremia 7. Secondary to anemia of chronic disorder 8. Hypertension 9. CAUTI Recommendations: 1. I have discussed the results of my overview and impressions with the patient 2. Options for management were reviewed Code Visit Inpatient E&M: 12103 Subs Hosp L3
--- NOTE | 2017-07-16 14:15 | PCM.PN.REN ---
Subjective: underwent heart cath this morning. Medical mgmt. Encouraged protein supplement;. Denied NV, edema persists. Received lasix x1 yesterday. Creatinine increased to 1.65 today prior to heart cath. - Physical Exam General: Alert, Oriented x3, Cooperative, No apparent distress Lungs: Clear to auscultation Cardiovascular: Regular rate Abdomen: Bowel Sounds Present, Soft, Non Tender, Non-Distended Extremities: Edema - 2+ Psych/Mental Status: Normal Affect, Alert and oriented to time, place, person, mood and affect Vital Signs Temp Pulse Resp BP Pulse Ox 98.0 F 78 14 142/69 H 95 07/16/17 13:59 07/16/17 13:59 07/16/17 13:59 07/16/17 13:59 07/16/17 13:59 Oxygen Delivery Method Room Air Weight: 67.4 kg Body Mass Index (BMI) 23.3 Intake and Output for Last 24 Hours 07/14/17 07/15/17 07/16/17 22:59 23:59 23:59 Intake Total 1218 / 1218 Output Total 250 / 250 Balance 968 / 968 Laboratory Tests Past 24 Hrs 07/15/17 07/16/17 07/16/17 23:00 05:14 05:14 WBC 10.6 RBC 3.68 L Hgb 11.8 L Hct 33.1 L MCV 89.9 MCH 32.1 H MCHC 35.6 RDW 12.4 RDW Differential 39.8 Plt Count 339 MPV 9.6 Immature Gran % (Auto) 1.400 H Neut % (Auto) 64.0 Lymph % (Auto) 19.3 [place] % (Auto) 12.4 H Eos % (Auto) 2.6 Baso % (Auto) 0.3 Absolute Neuts (auto) 6.8 Absolute Lymphs (auto) 2.04 Total Counted Not Reportable PT INR APTT Sodium 133 L Potassium 4.9 Chloride 106 Carbon Dioxide 17.0 L Anion Gap 10 BUN 77 H Creatinine 1.65 H Estim Creat Clear Calc 37.13 Est GFR (MDRD) Af Amer 40 L Est GFR (MDRD) Non-Af 33 L BUN/Creatinine Ratio 46.7 H Glucose 149 H Calcium 7.1 L Urine Color Yellow Urine Clarity Cloudy Urine pH 6.0 Ur Specific [place] 1.020 Urine Protein 500 H Urine Glucose (UA) 50 H Urine Ketones Negative Urine Occult Blood 250 H Urine Nitrite Negative Urine Bilirubin Negative Urine Urobilinogen Normal Ur Leukocyte Esterase 500 H Urine RBC Urine WBC Ur Squamous Epith Cells Urine Bacteria Urine Mucus 07/16/17 07/16/17 05:14 11:55 WBC RBC Hgb Hct MCV MCH MCHC RDW RDW Differential Plt Count MPV Immature Gran % (Auto) Neut % (Auto) Lymph % (Auto) [place] % (Auto) Eos % (Auto) Baso % (Auto) Absolute Neuts (auto) Absolute Lymphs (auto) Total Counted PT 14.0 INR 1.1 APTT 29.6 Sodium Potassium Chloride Carbon Dioxide Anion Gap BUN Creatinine Estim Creat Clear Calc Est GFR (MDRD) Af Amer Est GFR (MDRD) Non-Af BUN/Creatinine Ratio Glucose Calcium Urine Color Red Urine Clarity Turbid Urine pH 5.0 Ur Specific [place] 1.015 Urine Protein 500 H Urine Glucose (UA) Normal Urine Ketones Negative Urine Occult Blood 250 H Urine Nitrite Negative Urine Bilirubin Negative Urine Urobilinogen Normal Ur Leukocyte Esterase 500 H Urine RBC > 100 SEEN Urine WBC >100 SEEN Ur Squamous Epith Cells 0 SEEN Urine Bacteria 0 SEEN Urine Mucus 0 SEEN POC Glucose 07/16/17 07/16/17 07/15/17 11:39 06:35 21:14 POC Glucose 186 H 128 H 235 H 07/15/17 17:55 POC Glucose 249 H Assessment/Plan 1. CKD stage 3 due to poorly controlled diabetic nephropathy with nephrotic proteinuria UPCR 14.9g/gCr protein with edema, retinopathy. Creatinine increased to 1.65 today prior to heart cath after received iv lasix x1 yesterday. Order compression stockings 2. Nephrotic syndrome from diabetic nephropathy. 3. Metabolic acidosis hyperkalemia stable. + urine ketones 4. NSTEMI on plavix, heart cath today. Discussed risk of contrast nephropathy and risk of requiring dialysis. Start hydration 6hrs before cath 1cc/kg/hr. Add mucomyst. 5. Ischemic Cardiomyopathy EF 30% on echo 07/11/17 on BB. Hold ACEI due to hx hyperkalemia. Heart cath in am. 6. HTN stable 7. DM2 with retinopathy, poorly controlled diabetes due to malcompliance, stressed importance of follow up and compliance with therapy. Hgb A1C 14.9 on 07/10 8. Anemia hgb stable 9. Severe protein/calorie malnutrition. Add glucerna
[2017-07-16] MEDS: Ceftriaxone 1 GM/50 ML BAG IV (15:19)
[2017-07-16 17:00] LABS: Bedside Glucose 339 mg/dL (70-110)
[2017-07-16] MEDS: Atorvastatin Calcium 40 MG Tablet PO (22:20)
[2017-07-16 22:25] LABS: Bedside Glucose 299 mg/dL (70-110)
[2017-07-16] MEDS: Glucerna Shake 120 ML LIQUID PO (22:42)
[2017-07-17] VITALS (12 sets, daily range): BP systolic 113–153; BP diastolic 67–90; PULSE 67–80; RESP 16–18; TEMP 36.6–36.8; O2SAT 95–97
[2017-07-17] MEDS: 0.9% Normal Saline 1,000 ML 60 ML IV (00:19)
[2017-07-17 06:40] LABS: Absolute Lymphocyte Count 1.49 X10^3/ul (0.83-4.51); Absolute Neutrophil Count 10.4 X10^3/uL (2.0-7.7); Basophil# 0.02 X10^3/uL; Basophil% 0.1 % (0-1); Eosinophil# 0.01 X10^3/uL; Eosinophils% 0.1 % (0-5); Hematocrit 35.8 % (37-47); Hemoglobin 12.6 g/dl (12.0-15.0); Lymphocyte # 1.49 X10^3/ul (4.0); Lymphocyte % 10.8 % (19-41); Mean Corp Hgb Conc 35.2 g/gl (32-36); Mean Corpuscular Hgb 31.7 pg (27.0-32.0); Mean Corpuscular Volume 89.9 fL (81-99); Mean Platelet Vol. 9.5 fl (6.2-12.0); Monocyte# 1.66 X10^3/uL; Monocyte% 12.1 % (0-10); Neutrophil # 10.37 X10^3/uL (2.7-7.7); Neutrophil % 75.3 % (47-70); Platelet Count 463 K/mm3 (150-450); RBC Distribution Width CV 12.7 % (11.6-14.6); RBC Distribution Width SD 41.4 fl (35.1-43.9); Red Blood Count 3.98 M/mm3 (4.2-5.4); White Blood Count 13.8 K/mm3 (4.4-11.0)
[2017-07-17 06:41] LABS: Differential Indicated SCAN CRITERIA MET; POSITIVE COUNT NO; POSITIVE DIFFERENTIAL YES; POSITIVE MORPHOLOGY NO
[2017-07-17 06:51] LABS: Bedside Glucose 216 mg/dL (70-110)
[2017-07-17 07:27] LABS: Color, Urine Yellow (Yellow); Glucose, Dipstick 100 mg/dl (Normal); Ketone-Dipstick Negative (Negative); Leukocyte Esterase-Dipstick 500 /ul (Negative); Nitrite-Dipstick Negative (Negative); Occult Blood-Urine 250 /ul (Negative); Protein-Dipstick 500 mg/dl (Negative); Urine Bilirubin Dipstick Negative (Negative); Urine Clarity Cloudy (Clear); Urine Urobilinogen Normal (Normal)
[2017-07-17 07:40] LABS: Bacteria 2+ /hpf (None Seen); Mucous, Urine RARE /hpf (<or=2+); Red Blood Cells-Urine 5-10 SEEN /hpf (0-5); Squamous Epithelial Cells - UA 0-5 SEEN /hpf (5-10); White Blood Cells 5-10 SEEN /hpf (0-5); Yeast-Urine 1+ /hpf (None Seen)
--- NOTE | 2017-07-17 07:49 | PCM.PN.CARD ---
Subjectve: The patient was seen and evaluated and appears to be stable Objective: Vital Signs Temp Pulse Resp BP Pulse Ox 97.8 F 73 18 138/90 H 95 07/17/17 03:00 07/17/17 07:10 07/17/17 03:00 07/17/17 03:00 07/17/17 03:00 Oxygen Delivery Method Room Air Weight: 147 lb 11.355 oz Body Mass Index (BMI) 23.3 Intake and Output for Last 24 Hours 07/15/17 07/16/17 07/17/17 23:59 23:59 23:59 Intake Total 1950 / 1950 652 / 652 Output Total 380 / 380 400 / 400 Balance 1570 / 1570 252 / 252 General: Alert, Oriented x 3, Ill Appearing HEENT: Atraumatic Neck: Supple, Good ROM, No Lymph Node Enlargement Lungs: Clear to auscultation Cardiovascular: Regular Rhythm, Normal S1, Normal S2, No Murmurs, No Rubs, No Gallops Vascular: No Carotid Bruits, Normal Femoral Pulses, Normal Radial Pulses, Normal Dorsalis Pedal Pulse, Normal Posterior Tibial Pulses Abdomen: Bowel Sounds Present, Soft, Non Tender, No HSM, No Organomegaly Extremities: No Cyanosis, No Clubbing, No edema Neurological: No Focal Motor or Sensory Deficit 07/16/17 11:55: Urine Color Red, Urine Clarity Turbid, Urine pH 5.0, Ur Specific [place] 1.015, Urine Protein 500 H, Urine Glucose (UA) Normal, Urine Ketones Negative, Urine Occult Blood 250 H, Urine Nitrite Negative, Urine Bilirubin Negative, Urine Urobilinogen Normal, Ur Leukocyte Esterase 500 H, Urine RBC > 100 SEEN, Urine WBC >100 SEEN 07/17/17 03:15: Urine Color Yellow, Urine Clarity Cloudy, Urine pH 5.0, Ur Specific [place] 1.020, Urine Protein 500 H, Urine Glucose (UA) 100 H, Urine Ketones Negative, Urine Occult Blood 250 H, Urine Nitrite Negative, Urine Bilirubin Negative, Urine Urobilinogen Normal, Ur Leukocyte Esterase 500 H, Urine RBC 5-10 SEEN, Urine WBC 5-10 SEEN 07/17/17 06:05: WBC 13.8 H, RBC 3.98 L, Hgb 12.6, Hct 35.8 L, MCV 89.9, MCH 31.7, MCHC 35.2, RDW 12.7, RDW Differential 41.4, Plt Count 463 H, MPV 9.5, Immature Gran % (Auto) 1.600 H, Neut % (Auto) 75.3 H, Lymph % (Auto) 10.8 L, [place] % (Auto) 12.1 H, Eos % (Auto) 0.1, Baso % (Auto) 0.1, Absolute Neuts (auto) 10.4 H, Total Counted Not Reportable Rhythm: EKG: Normal sinus rhythm Assessment/Plan 1. Non-ST elevation myocardial infarction. She presents with uncontrolled diabetes mellitus and is noted to have EKG changes as well as cardiac enzymes compatible with a non-ST elevation myocardial infarction. She underwent a cardiac catheterization which demonstrated the following: Left main coronary artery with mild disease: Left anterior descending artery with severe proximal to mid segment disease and mild to moderate distal disease. Dominant left circumflex artery with proximal 70-80% stenosis First obtuse marginal branch with 70-80% proximal stenosis. Nondominant right coronary artery with no significant stenosis. Globally reduced left ventricular ejection fraction estimated EF 30% After discussion with the croze cutter it appears that the best mode of revascularization would likely be surgical intervention. We will continue to manage her medically for now until she is stabilized from the renal standpoint. 2. Hypertension Her blood pressure is noted to be uncontrolled at this time. After appropriate hydration she will be started on an RADHA inhibitor. At this particular time the beta-oneal can be initiated and she can be followed. We will await further workup from the renal service. Thank you for allowing me to participate in the care of your patient. Please don't hesitate to call if any issues arise
--- NOTE | 2017-07-17 07:52 | PN.CARD_ITS ---
Subjectve: The patient was seen and evaluated and appears to be stable Objective: Vital Signs Temp Pulse Resp BP Pulse Ox 97.8 F 73 18 138/90 H 95 07/17/17 03:00 07/17/17 07:10 07/17/17 03:00 07/17/17 03:00 07/17/17 03:00 Oxygen Delivery Method Room Air Weight: 147 lb 11.355 oz Body Mass Index (BMI) 23.3 Intake and Output for Last 24 Hours 07/15/17 07/16/17 07/17/17 23:59 23:59 23:59 Intake Total 1950 / 1950 652 / 652 Output Total 380 / 380 400 / 400 Balance 1570 / 1570 252 / 252 General: Alert, Oriented x 3, Ill Appearing HEENT: Atraumatic Neck: Supple, Good ROM, No Lymph Node Enlargement Lungs: Clear to auscultation Cardiovascular: Regular Rhythm, Normal S1, Normal S2, No Murmurs, No Rubs, No Gallops Vascular: No Carotid Bruits, Normal Femoral Pulses, Normal Radial Pulses, Normal Dorsalis Pedal Pulse, Normal Posterior Tibial Pulses Abdomen: Bowel Sounds Present, Soft, Non Tender, No HSM, No Organomegaly Extremities: No Cyanosis, No Clubbing, No edema Neurological: No Focal Motor or Sensory Deficit 07/16/17 11:55: Urine Color Red, Urine Clarity Turbid, Urine pH 5.0, Ur Specific [place] 1.015, Urine Protein 500 H, Urine Glucose (UA) Normal, Urine Ketones Negative, Urine Occult Blood 250 H, Urine Nitrite Negative, Urine Bilirubin Negative, Urine Urobilinogen Normal, Ur Leukocyte Esterase 500 H, Urine RBC > 100 SEEN, Urine WBC >100 SEEN 07/17/17 03:15: Urine Color Yellow, Urine Clarity Cloudy, Urine pH 5.0, Ur Specific [place] 1.020, Urine Protein 500 H, Urine Glucose (UA) 100 H, Urine Ketones Negative, Urine Occult Blood 250 H, Urine Nitrite Negative, Urine Bilirubin Negative, Urine Urobilinogen Normal, Ur Leukocyte Esterase 500 H, Urine RBC 5-10 SEEN, Urine WBC 5-10 SEEN 07/17/17 06:05: WBC 13.8 H, RBC 3.98 L, Hgb 12.6, Hct 35.8 L, MCV 89.9, MCH 31.7 , MCHC 35.2, RDW 12.7, RDW Differential 41.4, Plt Count 463 H, MPV 9.5, Immature Gran % (Auto) 1.600 H, Neut % (Auto) 75.3 H, Lymph % (Auto) 10.8 L, [place] % (Auto) 12.1 H, Eos % (Auto) 0.1, Baso % (Auto) 0.1, Absolute Neuts (auto ) 10.4 H, Total Counted Not Reportable Rhythm: EKG: Normal sinus rhythm Assessment/Plan 1. Non-ST elevation myocardial infarction. She presents with uncontrolled diabetes mellitus and is noted to have EKG changes as well as cardiac enzymes compatible with a non-ST elevation myocardial infarction. She underwent a cardiac catheterization which demonstrated the following: Left main coronary artery with mild disease: Left anterior descending artery with severe proximal to mid segment disease and mild to moderate distal disease. Dominant left circumflex artery with proximal 70-80% stenosis First obtuse marginal branch with 70-80% proximal stenosis. Nondominant right coronary artery with no significant stenosis. Globally reduced left ventricular ejection fraction estimated EF 30% After discussion with the commercial litigation paralegal it appears that the best mode of revascularization would likely be surgical intervention. We will continue to manage her medically for now until she is stabilized from the renal standpoint. 2. Hypertension Her blood pressure is noted to be uncontrolled at this time. After appropriate hydration she will be started on an RADHA inhibitor. At this particular time the beta-oneal can be initiated and she can be followed. We will await further workup from the renal service. Thank you for allowing me to participate in the care of your patient. Please don't hesitate to call if any issues arise
[2017-07-17 08:13] LABS: Anion Gap 10 (5-15); BUN 84 mg/dL (7-18); BUN/Creat Ratio 47.2 RATIO (10-20); Calcium,Total 7.6 mg/dL (8.5-10.1); Chloride 108 mmol/L (98-107); Creatinine, Serum 1.78 mg/dL (0.55-1.02); EST Glomerular Filtration Rate 31 mL/min (>60); Est Glom Filt Rate - Afr Amer 37 mL/min (>60); Estimated Creatinine Clearance 34.22 ml/min; Glucose 230 mg/dL (74-106); Potassium 5.8 mmol/L (3.5-5.1); Sodium Level 133 mmol/L (136-145)
[2017-07-17] MEDS: Metoprolol Tartrate 25 MG Tablet PO ×2 (09:18→21:24)
[2017-07-17] MEDS: Pantoprazole Sodium 40 MG Tablet PO (09:18)
[2017-07-17] MEDS: Calcium Acetate 667 MG Capsule PO ×2 (09:19→17:27)
[2017-07-17] MEDS: Sodium Polystyrene Sulfonate 15 GM/60 ML UDC 30 GM PO (09:19)
[2017-07-17] MEDS: Aspirin 81 MG TAB.CHEW PO (09:19)
[2017-07-17] MEDS: Ceftriaxone 1 GM/50 ML BAG IV (09:20)
--- NOTE | 2017-07-17 09:20 | PCM.PN.REN ---
Subjective: arroyo catheter removed last night, having urinary retention issues. Potassium elevated at 5.8 today, renal fxn worse - Physical Exam General: Alert, Oriented x3, Cooperative, No apparent distress Lungs: Diminished Cardiovascular: Regular rate Abdomen: Bowel Sounds Present, Soft, Non Tender, Non-Distended Extremities: Edema - third spacing Musculoskeletal: Muscle Wasting Psych/Mental Status: Normal Affect, Appropriate, Alert and oriented to time, place, person, mood and affect Vital Signs Temp Pulse Resp BP Pulse Ox 97.8 F 70 16 147/80 H 95 07/17/17 09:00 07/17/17 09:00 07/17/17 09:00 07/17/17 09:00 07/17/17 09:00 Oxygen Delivery Method Room Air Weight: 67 kg Body Mass Index (BMI) 23.3 Intake and Output for Last 24 Hours 07/15/17 07/16/17 07/17/17 23:59 23:59 23:59 Intake Total 1950 / 1950 652 / 652 Output Total 380 / 380 400 / 400 Balance 1570 / 1570 252 / 252 Laboratory Tests Past 24 Hrs 07/16/17 07/17/17 07/17/17 11:55 03:15 03:15 WBC RBC Hgb Hct MCV MCH MCHC RDW RDW Differential Plt Count MPV Immature Gran % (Auto) Neut % (Auto) Lymph % (Auto) [place] % (Auto) Eos % (Auto) Baso % (Auto) Absolute Neuts (auto) Absolute Lymphs (auto) Total Counted Sodium Potassium Chloride Carbon Dioxide Anion Gap BUN Creatinine Estim Creat Clear Calc Est GFR (MDRD) Af Amer Est GFR (MDRD) Non-Af BUN/Creatinine Ratio Glucose Calcium Total Protein (PEP) Pending Albumin (PEP) Pending Globulin (PEP) Pending Albumin/Globulin (PEP) Pending Mcrcv-9-Cffpzrijh Pending Nycep-4-Knwngndmj Pending Beta Globulins Pending Gamma Globulins Pending M-Jefe Pending Urine Color Red Urine Clarity Turbid Urine pH 5.0 Ur Specific [place] 1.015 Urine Protein 500 H Urine Glucose (UA) Normal Urine Ketones Negative Urine Occult Blood 250 H Urine Nitrite Negative Urine Bilirubin Negative Urine Urobilinogen Normal Ur Leukocyte Esterase 500 H Urine RBC > 100 SEEN Urine WBC >100 SEEN Ur Squamous Epith Cells 0 SEEN Urine Bacteria 0 SEEN Urine Mucus 0 SEEN Urine Yeast Urine Total Protein Pending Urine Albumin Pending U Ynqsl-3-Idgdbccn Pending U Mxrpl-3-Rfiygatk Pending U Beta Globulin Pending U Gamma Globulin Pending U PEP M-Jefe Pending JEAN CARLOS Screen ESTELITA-1 Antibody SS-A/Ro IgG Antibody SS-B/La IgG Antibody Sm (Peoples) Antibody COMPO CASTER Antibody Scl-70 Scleroderma Ab Double Strand DNA Ab Centromere B Antibody 07/17/17 07/17/17 07/17/17 03:15 06:05 06:05 WBC 13.8 H RBC 3.98 L Hgb 12.6 Hct 35.8 L MCV 89.9 MCH 31.7 MCHC 35.2 RDW 12.7 RDW Differential 41.4 Plt Count 463 H MPV 9.5 Immature Gran % (Auto) 1.600 H Neut % (Auto) 75.3 H Lymph % (Auto) 10.8 L [place] % (Auto) 12.1 H Eos % (Auto) 0.1 Baso % (Auto) 0.1 Absolute Neuts (auto) 10.4 H Absolute Lymphs (auto) 1.49 Total Counted Not Reportable Sodium Potassium Chloride Carbon Dioxide Anion Gap BUN Creatinine Estim Creat Clear Calc Est GFR (MDRD) Af Amer Est GFR (MDRD) Non-Af BUN/Creatinine Ratio Glucose Calcium Total Protein (PEP) Albumin (PEP) Globulin (PEP) Albumin/Globulin (PEP) Rehlm-7-Ubaztdspr Xfpic-3-Pbkswfzwf Beta Globulins Gamma Globulins M-Jefe Urine Color Yellow Urine Clarity Cloudy Urine pH 5.0 Ur Specific [place] 1.020 Urine Protein 500 H Urine Glucose (UA) 100 H Urine Ketones Negative Urine Occult Blood 250 H Urine Nitrite Negative Urine Bilirubin Negative Urine Urobilinogen Normal Ur Leukocyte Esterase 500 H Urine RBC 5-10 SEEN Urine WBC 5-10 SEEN Ur Squamous Epith Cells 0-5 SEEN Urine Bacteria 2+ Urine Mucus RARE Urine Yeast 1+ Urine Total Protein Urine Albumin U Bhfvx-8-Dysnvzyv U Tvdsv-1-Ocehcrdu U Beta Globulin U Gamma Globulin U PEP M-Jefe JEAN CARLOS Screen Pending ESTELITA-1 Antibody Pending SS-A/Ro IgG Antibody Pending SS-B/La IgG Antibody Pending Sm (Peoples) Antibody Pending COMPO CASTER Antibody Pending Scl-70 Scleroderma Ab Pending Double Strand DNA Ab Pending Centromere B Antibody Pending 07/17/17 06:05 WBC RBC Hgb Hct MCV MCH MCHC RDW RDW Differential Plt Count MPV Immature Gran % (Auto) Neut % (Auto) Lymph % (Auto) [place] % (Auto) Eos % (Auto) Baso % (Auto) Absolute Neuts (auto) Absolute Lymphs (auto) Total Counted Sodium 133 L Potassium 5.8 H Chloride 108 H Carbon Dioxide 15.0 L Anion Gap 10 BUN 84 H Creatinine 1.78 H Estim Creat Clear Calc 34.22 Est GFR (MDRD) Af Amer 37 L Est GFR (MDRD) Non-Af 31 L BUN/Creatinine Ratio 47.2 H Glucose 230 H Calcium 7.6 L Total Protein (PEP) Albumin (PEP) Globulin (PEP) Albumin/Globulin (PEP) Qsvsz-0-Hhtgalrsq Qcajb-9-Kzjlsctyv Beta Globulins Gamma Globulins M-Jefe Urine Color Urine Clarity Urine pH Ur Specific [place] Urine Protein Urine Glucose (UA) Urine Ketones Urine Occult Blood Urine Nitrite Urine Bilirubin Urine Urobilinogen Ur Leukocyte Esterase Urine RBC Urine WBC Ur Squamous Epith Cells Urine Bacteria Urine Mucus Urine Yeast Urine Total Protein Urine Albumin U Kxhbp-9-Vcggyodo U Gsuwy-5-Lhbocylb U Beta Globulin U Gamma Globulin U PEP M-Jefe JEAN CARLOS Screen ESTELITA-1 Antibody SS-A/Ro IgG Antibody SS-B/La IgG Antibody Sm (Peoples) Antibody COMPO CASTER Antibody Scl-70 Scleroderma Ab Double Strand DNA Ab Centromere B Antibody POC Glucose 07/17/17 07/16/17 07/16/17 06:44 22:16 16:39 POC Glucose 216 H 299 H 339 H 07/16/17 11:39 POC Glucose 186 H Assessment/Plan 1. Acute on CKD stage 3 due to heart cath, urinary retention, underlying diabetic nephropathy. reinsert arroyo to CD for high PVR's in the 300-400's. w 2. Nephrotic syndrome from diabetic nephropathy. Hold on diuretics. Oxygenation stable. Continue compression stockings 3. Metabolic acidosis 4. Hyperkalemia kayexalate, 2g K diet 5. NSTEMI on plavix, s/p heart cath 6. Ischemic Cardiomyopathy EF 30% on echo 07/11/17 on BB. Hold ACEI due to hx hyperkalemia, renal failure 7. HTN stable 8. DM2 with retinopathy, poorly controlled diabetes due to malcompliance 9. Severe protein/calorie malnutrition. Add glucerna
[2017-07-17] MEDS: Glucerna Shake 120 ML LIQUID PO ×2 (09:22→21:22)
--- NOTE | 2017-07-17 09:27 | PN.RENAL_ITS ---
Subjective: arroyo catheter removed last night, having urinary retention issues. Potassium elevated at 5.8 today, renal fxn worse - Physical Exam General: Alert, Oriented x3, Cooperative, No apparent distress Lungs: Diminished Cardiovascular: Regular rate Abdomen: Bowel Sounds Present, Soft, Non Tender, Non-Distended Extremities: Edema - third spacing Musculoskeletal: Muscle Wasting Psych/Mental Status: Normal Affect, Appropriate, Alert and oriented to time, place, person, mood and affect Vital Signs Temp Pulse Resp BP Pulse Ox 97.8 F 70 16 147/80 H 95 07/17/17 09:00 07/17/17 09:00 07/17/17 09:00 07/17/17 09:00 07/17/17 09:00 Oxygen Delivery Method Room Air Weight: 67 kg Body Mass Index (BMI) 23.3 Intake and Output for Last 24 Hours 07/15/17 07/16/17 07/17/17 23:59 23:59 23:59 Intake Total 1950 / 1950 652 / 652 Output Total 380 / 380 400 / 400 Balance 1570 / 1570 252 / 252 Laboratory Tests Past 24 Hrs 07/16/17 07/17/17 07/17/17 11:55 03:15 03:15 WBC RBC Hgb Hct MCV MCH MCHC RDW RDW Differential Plt Count MPV Immature Gran % (Auto) Neut % (Auto) Lymph % (Auto) [place] % (Auto) Eos % (Auto) Baso % (Auto) Absolute Neuts (auto) Absolute Lymphs (auto) Total Counted Sodium Potassium Chloride Carbon Dioxide Anion Gap BUN Creatinine Estim Creat Clear Calc Est GFR (MDRD) Af Amer Est GFR (MDRD) Non-Af BUN/Creatinine Ratio Glucose Calcium Total Protein (PEP) Pending Albumin (PEP) Pending Globulin (PEP) Pending Albumin/Globulin (PEP) Pending Djhgz-8-Qusukczfi Pending Uzepc-0-Mnowucxar Pending Beta Globulins Pending Gamma Globulins Pending M-Jefe Pending Urine Color Red Urine Clarity Turbid Urine pH 5.0 Ur Specific [place] 1.015 Urine Protein 500 H Urine Glucose (UA) Normal Urine Ketones Negative Urine Occult Blood 250 H Urine Nitrite Negative Urine Bilirubin Negative Urine Urobilinogen Normal Ur Leukocyte Esterase 500 H Urine RBC > 100 SEEN Urine WBC >100 SEEN Ur Squamous Epith Cells 0 SEEN Urine Bacteria 0 SEEN Urine Mucus 0 SEEN Urine Yeast Urine Total Protein Pending Urine Albumin Pending U Oxssn-5-Hgledirz Pending U Cdxba-5-Smqsvsdl Pending U Beta Globulin Pending U Gamma Globulin Pending U PEP M-Jefe Pending JEAN CARLOS Screen ESTELITA-1 Antibody SS-A/Ro IgG Antibody SS-B/La IgG Antibody Sm (Peoples) Antibody BIOTECHNICIAN Antibody Scl-70 Scleroderma Ab Double Strand DNA Ab Centromere B Antibody 07/17/17 07/17/17 07/17/17 03:15 06:05 06:05 WBC 13.8 H RBC 3.98 L Hgb 12.6 Hct 35.8 L MCV 89.9 MCH 31.7 MCHC 35.2 RDW 12.7 RDW Differential 41.4 Plt Count 463 H MPV 9.5 Immature Gran % (Auto) 1.600 H Neut % (Auto) 75.3 H Lymph % (Auto) 10.8 L [place] % (Auto) 12.1 H Eos % (Auto) 0.1 Baso % (Auto) 0.1 Absolute Neuts (auto) 10.4 H Absolute Lymphs (auto) 1.49 Total Counted Not Reportable Sodium Potassium Chloride Carbon Dioxide Anion Gap BUN Creatinine Estim Creat Clear Calc Est GFR (MDRD) Af Amer Est GFR (MDRD) Non-Af BUN/Creatinine Ratio Glucose Calcium Total Protein (PEP) Albumin (PEP) Globulin (PEP) Albumin/Globulin (PEP) Yoqju-8-Xnutwbnfc Fppyr-7-Mmojthfwm Beta Globulins Gamma Globulins M-Jefe Urine Color Yellow Urine Clarity Cloudy Urine pH 5.0 Ur Specific [place] 1.020 Urine Protein 500 H Urine Glucose (UA) 100 H Urine Ketones Negative Urine Occult Blood 250 H Urine Nitrite Negative Urine Bilirubin Negative Urine Urobilinogen Normal Ur Leukocyte Esterase 500 H Urine RBC 5-10 SEEN Urine WBC 5-10 SEEN Ur Squamous Epith Cells 0-5 SEEN Urine Bacteria 2+ Urine Mucus RARE Urine Yeast 1+ Urine Total Protein Urine Albumin U Bucpp-3-Cnnqcqky U Jhnoj-5-Cbiktzrz U Beta Globulin U Gamma Globulin U PEP M-Jefe JEAN CARLOS Screen Pending ESTELITA-1 Antibody Pending SS-A/Ro IgG Antibody Pending SS-B/La IgG Antibody Pending Sm (Peoples) Antibody Pending BIOTECHNICIAN Antibody Pending Scl-70 Scleroderma Ab Pending Double Strand DNA Ab Pending Centromere B Antibody Pending 07/17/17 06:05 WBC RBC Hgb Hct MCV MCH MCHC RDW RDW Differential Plt Count MPV Immature Gran % (Auto) Neut % (Auto) Lymph % (Auto) [place] % (Auto) Eos % (Auto) Baso % (Auto) Absolute Neuts (auto) Absolute Lymphs (auto) Total Counted Sodium 133 L Potassium 5.8 H Chloride 108 H Carbon Dioxide 15.0 L Anion Gap 10 BUN 84 H Creatinine 1.78 H Estim Creat Clear Calc 34.22 Est GFR (MDRD) Af Amer 37 L Est GFR (MDRD) Non-Af 31 L BUN/Creatinine Ratio 47.2 H Glucose 230 H Calcium 7.6 L Total Protein (PEP) Albumin (PEP) Globulin (PEP) Albumin/Globulin (PEP) Zoctu-8-Mqvlzrxgv Msmwg-5-Hznhlqwhg Beta Globulins Gamma Globulins M-Jefe Urine Color Urine Clarity Urine pH Ur Specific [place] Urine Protein Urine Glucose (UA) Urine Ketones Urine Occult Blood Urine Nitrite Urine Bilirubin Urine Urobilinogen Ur Leukocyte Esterase Urine RBC Urine WBC Ur Squamous Epith Cells Urine Bacteria Urine Mucus Urine Yeast Urine Total Protein Urine Albumin U Byiam-0-Jtychcjr U Umvpg-7-Zdxxfijl U Beta Globulin U Gamma Globulin U PEP M-Jefe JEAN CARLOS Screen ESTELITA-1 Antibody SS-A/Ro IgG Antibody SS-B/La IgG Antibody Sm (Peoples) Antibody BIOTECHNICIAN Antibody Scl-70 Scleroderma Ab Double Strand DNA Ab Centromere B Antibody POC Glucose 07/17/17 07/16/17 07/16/17 06:44 22:16 16:39 POC Glucose 216 H 299 H 339 H 07/16/17 11:39 POC Glucose 186 H Assessment/Plan 1. Acute on CKD stage 3 due to heart cath, urinary retention, underlying diabetic nephropathy. reinsert arroyo to CD for high PVR's in the 300-400's. w 2. Nephrotic syndrome from diabetic nephropathy. Hold on diuretics. Oxygenation stable. Continue compression stockings 3. Metabolic acidosis 4. Hyperkalemia kayexalate, 2g K diet 5. NSTEMI on plavix, s/p heart cath 6. Ischemic Cardiomyopathy EF 30% on echo 07/11/17 on BB. Hold ACEI due to hx hyperkalemia, renal failure 7. HTN stable 8. DM2 with retinopathy, poorly controlled diabetes due to malcompliance 9. Severe protein/calorie malnutrition. Add glucerna
--- NOTE | 2017-07-17 09:59 | US_ITS ---
STUDY: ABDOMINAL ULTRASOUND -LIMITED 4 QUADRANT REASON FOR VISIT: Female, 62 years old. Ascites. TECHNIQUE: Ultrasound evaluation of the 4 quadrant was performed with real-time and static clements-scale imaging. TECHNICAL QUALITY: Adequate. COMPARISON: None. FINDINGS: Ascites: There is mild free fluid in the four quadrant of the abdomen and pelvis.. There is right pleural effusion. US/Abdomen Limited IMPRESSION: Moderate ascites. Right pleural effusion. Electronically Signed: Maurisio Harper MD at 18:56 EDT , Service support ,
[2017-07-17 12:00] LABS: Bedside Glucose 241 mg/dL (70-110)
--- NOTE | 2017-07-17 13:52 | PCM.PROGNOTE ---
<Alejo Guajardo - Last Filed: 07/17/17 13:52> Subjective: Patient is upright in chair at bedside. She is complaining of increased abdominal distention with pressure on her diaphragm, though she is not SOB. She has swelling of the BLE. She had a cath restarted this AM as she was retaining urine with the cath removed. She has no fevers or chills. She denies cough. No CP. - Physical Exam General: Alert, Oriented x3, Cooperative HEENT: Atraumatic, PERRLA, EOMI, Normocephalic Neck: Supple, No JVD, Negative Carotid Bruits Lungs: Clear to auscultation, Normal air movement Cardiovascular: Regular rate, No murmurs Abdomen: Bowel Sounds Present, Soft, Non Tender, Distended Extremities: No edema, Capillary Refill Less than 3 Seconds, Edema - 2+ pitting edema BLE Skin: No rashes, No breakdown Musculoskeletal: No Tenderness to Palpation of Joints or Extremities Neurological: Cranial nerves II-XII grossly intact Psych/Mental Status: Normal Affect, Appropriate, Alert and oriented to time, place, person, mood and affect Vital Signs Temp Pulse Resp BP Pulse Ox 97.8 F 68 16 147/80 H 95 07/17/17 09:00 07/17/17 10:28 07/17/17 09:00 07/17/17 09:00 07/17/17 09:00 Oxygen Delivery Method Room Air Weight: 67 kg Body Mass Index (BMI) 23.3 Intake and Output for Last 24 Hours 07/15/17 07/16/17 07/17/17 23:59 23:59 23:59 Intake Total 1950 / 1950 1012 / 1012 Output Total 380 / 380 675 / 675 Balance 1570 / 1570 337 / 337 Microbiology Past 72 Hours 07/15/17 11:40 Urine Culture - Preliminary Urine Catheter - Lott Yeast Like Organism Laboratory Tests Past 24 Hrs 07/17/17 07/17/17 07/17/17 03:15 03:15 03:15 WBC RBC Hgb Hct MCV MCH MCHC RDW RDW Differential Plt Count MPV Immature Gran % (Auto) Neut % (Auto) Lymph % (Auto) [place] % (Auto) Eos % (Auto) Baso % (Auto) Absolute Neuts (auto) Absolute Lymphs (auto) Total Counted Sodium Potassium Chloride Carbon Dioxide Anion Gap BUN Creatinine Estim Creat Clear Calc Est GFR (MDRD) Af Amer Est GFR (MDRD) Non-Af BUN/Creatinine Ratio Glucose Calcium Total Protein (PEP) Pending Albumin (PEP) Pending Globulin (PEP) Pending Albumin/Globulin (PEP) Pending Dvonr-6-Vxpdsciak Pending Xsyqv-1-Dpgofopel Pending Beta Globulins Pending Gamma Globulins Pending M-Jefe Pending Urine Color Yellow Urine Clarity Cloudy Urine pH 5.0 Ur Specific [place] 1.020 Urine Protein 500 H Urine Glucose (UA) 100 H Urine Ketones Negative Urine Occult Blood 250 H Urine Nitrite Negative Urine Bilirubin Negative Urine Urobilinogen Normal Ur Leukocyte Esterase 500 H Urine RBC 5-10 SEEN Urine WBC 5-10 SEEN Ur Squamous Epith Cells 0-5 SEEN Urine Bacteria 2+ Urine Mucus RARE Urine Yeast 1+ Urine Total Protein Pending Urine Albumin Pending U Lsitb-9-Gkoabbqy Pending U Tmifv-6-Bggsfhsf Pending U Beta Globulin Pending U Gamma Globulin Pending U PEP M-Jefe Pending JEAN CARLOS Screen ESTELITA-1 Antibody SS-A/Ro IgG Antibody SS-B/La IgG Antibody Sm (Peoples) Antibody MANAGER MOBILE Antibody Scl-70 Scleroderma Ab Double Strand DNA Ab Centromere B Antibody 07/17/17 07/17/17 07/17/17 06:05 06:05 06:05 WBC 13.8 H RBC 3.98 L Hgb 12.6 Hct 35.8 L MCV 89.9 MCH 31.7 MCHC 35.2 RDW 12.7 RDW Differential 41.4 Plt Count 463 H MPV 9.5 Immature Gran % (Auto) 1.600 H Neut % (Auto) 75.3 H Lymph % (Auto) 10.8 L [place] % (Auto) 12.1 H Eos % (Auto) 0.1 Baso % (Auto) 0.1 Absolute Neuts (auto) 10.4 H Absolute Lymphs (auto) 1.49 Total Counted Not Reportable Sodium 133 L Potassium 5.8 H Chloride 108 H Carbon Dioxide 15.0 L Anion Gap 10 BUN 84 H Creatinine 1.78 H Estim Creat Clear Calc 34.22 Est GFR (MDRD) Af Amer 37 L Est GFR (MDRD) Non-Af 31 L BUN/Creatinine Ratio 47.2 H Glucose 230 H Calcium 7.6 L Total Protein (PEP) Albumin (PEP) Globulin (PEP) Albumin/Globulin (PEP) Ogehq-6-Maatqmavl Mmxbj-7-Vzfzozmbq Beta Globulins Gamma Globulins M-Jefe Urine Color Urine Clarity Urine pH Ur Specific [place] Urine Protein Urine Glucose (UA) Urine Ketones Urine Occult Blood Urine Nitrite Urine Bilirubin Urine Urobilinogen Ur Leukocyte Esterase Urine RBC Urine WBC Ur Squamous Epith Cells Urine Bacteria Urine Mucus Urine Yeast Urine Total Protein Urine Albumin U Vdzrt-0-Lbymutpf U Xbahd-9-Kxwwkyua U Beta Globulin U Gamma Globulin U PEP M-Jefe JEAN CARLOS Screen Pending ESTELITA-1 Antibody Pending SS-A/Ro IgG Antibody Pending SS-B/La IgG Antibody Pending Sm (Peoples) Antibody Pending MANAGER MOBILE Antibody Pending Scl-70 Scleroderma Ab Pending Double Strand DNA Ab Pending Centromere B Antibody Pending POC Glucose 07/17/17 07/17/17 07/16/17 11:58 06:44 22:16 POC Glucose 241 H 216 H 299 H 07/16/17 16:39 POC Glucose 339 H Assessment/Plan 1. NSTEMI - s/p cath yesterday, see report, severe dz. May need CABG. Care as directed by cardiology. Maintain on asa, statin, plavix, metoprolol, RADHA deferred 2/2 poor renal function. 2. CKD III - will likely be fluctuant after heart cath. Dr. Abreu is following. No RADHA for now. Cath back in. 3. Ischemic cardiomyopathy - EF 30%, pt has swelling up entire legs BL, defer diuresis until renal function improves. No resp issues at this time. Ultrasound of the abdominal to assess ascites given her complaints today. If significant, will tap. 4. DMt2 - titrate insulin therapy. Very poorly controlled. A1C 14.9 on 07/10/17. No previous antidiabetic agents. Would benefit from Viktoza given cardiac condition and its superior effect on A1C. She is limited on options 2/2 poor renal function. 5. HTN - poorly controlled, trend and adjust as needed 6. Mild normocytic anemia - will trend. Stable. 7. Mild hyponatremia - unclear significance. 8. Acute cystitis - culture with yeast. DC rocephin. Start fluconazole 200 mg po qd x 14 days. DVT ppx: Heparin DC planning: pending stabilization of renal function and ascites. This patient was seen by Alejo Guajardo PA-C under the supervision of Doctor Hairston. <Danis Hairston - Last Filed: 07/17/17 14:29> - Physical Exam Vital Signs Temp Pulse Resp BP Pulse Ox 97.8 F 68 16 147/80 H 95 07/17/17 09:00 07/17/17 10:28 07/17/17 09:00 07/17/17 09:00 07/17/17 09:00 Oxygen Delivery Method Room Air Weight: 67 kg Body Mass Index (BMI) 23.3 Intake and Output for Last 24 Hours 07/15/17 07/16/17 07/17/17 23:59 23:59 23:59 Intake Total 1950 / 1950 1012 / 1012 Output Total 380 / 380 675 / 675 Balance 1570 / 1570 337 / 337 Microbiology Past 72 Hours 07/15/17 11:40 Urine Culture - Preliminary Urine Catheter - Lott Yeast Like Organism Laboratory Tests Past 24 Hrs 07/17/17 07/17/17 07/17/17 03:15 03:15 03:15 WBC RBC Hgb Hct MCV MCH MCHC RDW RDW Differential Plt Count MPV Immature Gran % (Auto) Neut % (Auto) Lymph % (Auto) [place] % (Auto) Eos % (Auto) Baso % (Auto) Absolute Neuts (auto) Absolute Lymphs (auto) Total Counted Sodium Potassium Chloride Carbon Dioxide Anion Gap BUN Creatinine Estim Creat Clear Calc Est GFR (MDRD) Af Amer Est GFR (MDRD) Non-Af BUN/Creatinine Ratio Glucose Calcium Total Protein (PEP) Pending Albumin (PEP) Pending Globulin (PEP) Pending Albumin/Globulin (PEP) Pending Ynjui-3-Imzbfwrcc Pending Iugpl-3-Roqnjiele Pending Beta Globulins Pending Gamma Globulins Pending M-Jefe Pending Urine Color Yellow Urine Clarity Cloudy Urine pH 5.0 Ur Specific [place] 1.020 Urine Protein 500 H Urine Glucose (UA) 100 H Urine Ketones Negative Urine Occult Blood 250 H Urine Nitrite Negative Urine Bilirubin Negative Urine Urobilinogen Normal Ur Leukocyte Esterase 500 H Urine RBC 5-10 SEEN Urine WBC 5-10 SEEN Ur Squamous Epith Cells 0-5 SEEN Urine Bacteria 2+ Urine Mucus RARE Urine Yeast 1+ Urine Total Protein Pending Urine Albumin Pending U Ygfwc-2-Dsvmlhyj Pending U Mbfwn-8-Avpemohe Pending U Beta Globulin Pending U Gamma Globulin Pending U PEP M-Jefe Pending JEAN CARLOS Screen ESTELITA-1 Antibody SS-A/Ro IgG Antibody SS-B/La IgG Antibody Sm (Peoples) Antibody MANAGER MOBILE Antibody Scl-70 Scleroderma Ab Double Strand DNA Ab Centromere B Antibody 07/17/17 07/17/17 07/17/17 06:05 06:05 06:05 WBC 13.8 H RBC 3.98 L Hgb 12.6 Hct 35.8 L MCV 89.9 MCH 31.7 MCHC 35.2 RDW 12.7 RDW Differential 41.4 Plt Count 463 H MPV 9.5 Immature Gran % (Auto) 1.600 H Neut % (Auto) 75.3 H Lymph % (Auto) 10.8 L [place] % (Auto) 12.1 H Eos % (Auto) 0.1 Baso % (Auto) 0.1 Absolute Neuts (auto) 10.4 H Absolute Lymphs (auto) 1.49 Total Counted Not Reportable Sodium 133 L Potassium 5.8 H Chloride 108 H Carbon Dioxide 15.0 L Anion Gap 10 BUN 84 H Creatinine 1.78 H Estim Creat Clear Calc 34.22 Est GFR (MDRD) Af Amer 37 L Est GFR (MDRD) Non-Af 31 L BUN/Creatinine Ratio 47.2 H Glucose 230 H Calcium 7.6 L Total Protein (PEP) Albumin (PEP) Globulin (PEP) Albumin/Globulin (PEP) Ogncx-1-Lhkbcmaqb Oznhe-4-Cbfobkziv Beta Globulins Gamma Globulins M-Jefe Urine Color Urine Clarity Urine pH Ur Specific [place] Urine Protein Urine Glucose (UA) Urine Ketones Urine Occult Blood Urine Nitrite Urine Bilirubin Urine Urobilinogen Ur Leukocyte Esterase Urine RBC Urine WBC Ur Squamous Epith Cells Urine Bacteria Urine Mucus Urine Yeast Urine Total Protein Urine Albumin U Qsjvq-9-Eofakfhq U Qtldi-7-Sijkefnv U Beta Globulin U Gamma Globulin U PEP M-Jefe JEAN CARLOS Screen Pending ESTELITA-1 Antibody Pending SS-A/Ro IgG Antibody Pending SS-B/La IgG Antibody Pending Sm (Peoples) Antibody Pending MANAGER MOBILE Antibody Pending Scl-70 Scleroderma Ab Pending Double Strand DNA Ab Pending Centromere B Antibody Pending 07/17/17 13:55 WBC RBC Hgb Hct MCV MCH MCHC RDW RDW Differential Plt Count MPV Immature Gran % (Auto) Neut % (Auto) Lymph % (Auto) [place] % (Auto) Eos % (Auto) Baso % (Auto) Absolute Neuts (auto) Absolute Lymphs (auto) Total Counted Sodium 134 L Potassium 5.4 H Chloride 108 H Carbon Dioxide 16.0 L Anion Gap 10 BUN 84 H Creatinine 1.77 H Estim Creat Clear Calc 34.41 Est GFR (MDRD) Af Amer 37 L Est GFR (MDRD) Non-Af 31 L BUN/Creatinine Ratio 47.5 H Glucose 217 H Calcium 7.4 L Total Protein (PEP) Albumin (PEP) Globulin (PEP) Albumin/Globulin (PEP) Wlcoy-2-Yzekxnjda Gzykb-7-Kuxuddlvj Beta Globulins Gamma Globulins M-Jefe Urine Color Urine Clarity Urine pH Ur Specific [place] Urine Protein Urine Glucose (UA) Urine Ketones Urine Occult Blood Urine Nitrite Urine Bilirubin Urine Urobilinogen Ur Leukocyte Esterase Urine RBC Urine WBC Ur Squamous Epith Cells Urine Bacteria Urine Mucus Urine Yeast Urine Total Protein Urine Albumin U Duiyo-1-Avspilvo U Pjmsz-7-Mpbmbfaw U Beta Globulin U Gamma Globulin U PEP M-Jefe JEAN CARLOS Screen ESTELITA-1 Antibody SS-A/Ro IgG Antibody SS-B/La IgG Antibody Sm (Peoples) Antibody MANAGER MOBILE Antibody Scl-70 Scleroderma Ab Double Strand DNA Ab Centromere B Antibody POC Glucose 07/17/17 07/17/17 07/16/17 11:58 06:44 22:16 POC Glucose 241 H 216 H 299 H 07/16/17 16:39 POC Glucose 339 H Assessment/Plan This patient was seen in conjunction with Alejo Guajardo PA-C. I have independently interviewed and examined the patient and reviewed pertinent historical, laboratory, and other data. Please refer to Alejo Guajardo PA-C note for details of this patient's presentation, findings, and recommendations. I have reviewed Alejo Guajardo PA-C note and concur with documented findings. In brief, patient is a 72-year-old female with poorly controlled diabetes who presented with generalized weakness and non specific symptoms found to have hyperosmolar nonketotic state in addition to elevated troponin consistent with NSTEMI. Underwent left heart catheterization on 07/16/[address] Smythori was found to have severe multivessel disease for which cardiology recommended optimization of medical therapy with possible consideration for CABG when medically stable. Patient was also found to have turbid urine 07/17/2017 patient Lott catheter was reinserted by nephrology following development of urinary retention and worsening kidney function with hyperkalemia. Patient was started on fluconazole after a urine cultures came back positive for yeast Physical Examination: GENERAL: cooperative HEENT: Clear conjunctiva, NECK; supple, normal thyroid, CHEST: Diminished to auscultation bilaterally, HEART: Regular S1 S2, no audible murmurs ABDOMEN: soft, non-tender, normoactive bowel sounds, EXTREMITIES: No clubbing, no cyanosis. TRANSPORTATION AIDE: Awake, no lateralizing signs. SKIN: No Rash Assessment: 1. Diabetes mellitus type 2 presented with hyperosmolar nonketotic state is resolved 2. Acute non-STEMI 3. Coronary artery disease; multivessel severe disease 4. Chronic Kidney disease stage III 5. Ischemic cardiac myopathy with an ejection fraction of 30% 6. Hyponatremia 7. Secondary to anemia of chronic disorder 8. Hypertension 9. CAUTI 10. Candiduria?? Asymptomatic candiduria patient started on fluconazole consultation placed infectious disease Recommendations: 1. I have discussed the results of my overview and impressions with the patient 2. Options for management were reviewed Code Visit Inpatient E&M: 64031 Subs Hosp L3
--- NOTE | 2017-07-17 13:56 | PN_ITS ---
<Alejo Guajardo - Last Filed: 07/17/17 13:52> Subjective: Patient is upright in chair at bedside. She is complaining of increased abdominal distention with pressure on her diaphragm, though she is not SOB. She has swelling of the BLE. She had a cath restarted this AM as she was retaining urine with the cath removed. She has no fevers or chills. She denies cough. No CP. - Physical Exam General: Alert, Oriented x3, Cooperative HEENT: Atraumatic, PERRLA, EOMI, Normocephalic Neck: Supple, No JVD, Negative Carotid Bruits Lungs: Clear to auscultation, Normal air movement Cardiovascular: Regular rate, No murmurs Abdomen: Bowel Sounds Present, Soft, Non Tender, Distended Extremities: No edema, Capillary Refill Less than 3 Seconds, Edema - 2+ pitting edema BLE Skin: No rashes, No breakdown Musculoskeletal: No Tenderness to Palpation of Joints or Extremities Neurological: Cranial nerves II-XII grossly intact Psych/Mental Status: Normal Affect, Appropriate, Alert and oriented to time, place, person, mood and affect Vital Signs Temp Pulse Resp BP Pulse Ox 97.8 F 68 16 147/80 H 95 07/17/17 09:00 07/17/17 10:28 07/17/17 09:00 07/17/17 09:00 07/17/17 09:00 Oxygen Delivery Method Room Air Weight: 67 kg Body Mass Index (BMI) 23.3 Intake and Output for Last 24 Hours 07/15/17 07/16/17 07/17/17 23:59 23:59 23:59 Intake Total 1950 / 1950 1012 / 1012 Output Total 380 / 380 675 / 675 Balance 1570 / 1570 337 / 337 Microbiology Past 72 Hours 07/15/17 11:40 Urine Culture - Preliminary Urine Catheter - Lott Yeast Like Organism Laboratory Tests Past 24 Hrs 07/17/17 07/17/17 07/17/17 03:15 03:15 03:15 WBC RBC Hgb Hct MCV MCH MCHC RDW RDW Differential Plt Count MPV Immature Gran % (Auto) Neut % (Auto) Lymph % (Auto) [place] % (Auto) Eos % (Auto) Baso % (Auto) Absolute Neuts (auto) Absolute Lymphs (auto) Total Counted Sodium Potassium Chloride Carbon Dioxide Anion Gap BUN Creatinine Estim Creat Clear Calc Est GFR (MDRD) Af Amer Est GFR (MDRD) Non-Af BUN/Creatinine Ratio Glucose Calcium Total Protein (PEP) Pending Albumin (PEP) Pending Globulin (PEP) Pending Albumin/Globulin (PEP) Pending Hutel-0-Zmdnquobi Pending Osefm-8-Yekhsylto Pending Beta Globulins Pending Gamma Globulins Pending M-Jefe Pending Urine Color Yellow Urine Clarity Cloudy Urine pH 5.0 Ur Specific [place] 1.020 Urine Protein 500 H Urine Glucose (UA) 100 H Urine Ketones Negative Urine Occult Blood 250 H Urine Nitrite Negative Urine Bilirubin Negative Urine Urobilinogen Normal Ur Leukocyte Esterase 500 H Urine RBC 5-10 SEEN Urine WBC 5-10 SEEN Ur Squamous Epith Cells 0-5 SEEN Urine Bacteria 2+ Urine Mucus RARE Urine Yeast 1+ Urine Total Protein Pending Urine Albumin Pending U Iufgb-2-Ehpzenrp Pending U Frjhy-7-Rysofzuz Pending U Beta Globulin Pending U Gamma Globulin Pending U PEP M-Jefe Pending JEAN CARLOS Screen ESTELITA-1 Antibody SS-A/Ro IgG Antibody SS-B/La IgG Antibody Sm (Peoples) Antibody HEAD ANIMAL KEEPER Antibody Scl-70 Scleroderma Ab Double Strand DNA Ab Centromere B Antibody 07/17/17 07/17/17 07/17/17 06:05 06:05 06:05 WBC 13.8 H RBC 3.98 L Hgb 12.6 Hct 35.8 L MCV 89.9 MCH 31.7 MCHC 35.2 RDW 12.7 RDW Differential 41.4 Plt Count 463 H MPV 9.5 Immature Gran % (Auto) 1.600 H Neut % (Auto) 75.3 H Lymph % (Auto) 10.8 L [place] % (Auto) 12.1 H Eos % (Auto) 0.1 Baso % (Auto) 0.1 Absolute Neuts (auto) 10.4 H Absolute Lymphs (auto) 1.49 Total Counted Not Reportable Sodium 133 L Potassium 5.8 H Chloride 108 H Carbon Dioxide 15.0 L Anion Gap 10 BUN 84 H Creatinine 1.78 H Estim Creat Clear Calc 34.22 Est GFR (MDRD) Af Amer 37 L Est GFR (MDRD) Non-Af 31 L BUN/Creatinine Ratio 47.2 H Glucose 230 H Calcium 7.6 L Total Protein (PEP) Albumin (PEP) Globulin (PEP) Albumin/Globulin (PEP) Zwcsf-1-Mzdtfmlxi Uapzd-2-Xeruzhxrr Beta Globulins Gamma Globulins M-Jefe Urine Color Urine Clarity Urine pH Ur Specific [place] Urine Protein Urine Glucose (UA) Urine Ketones Urine Occult Blood Urine Nitrite Urine Bilirubin Urine Urobilinogen Ur Leukocyte Esterase Urine RBC Urine WBC Ur Squamous Epith Cells Urine Bacteria Urine Mucus Urine Yeast Urine Total Protein Urine Albumin U Guoeb-8-Efxdbimq U Uuwon-6-Jzwmahor U Beta Globulin U Gamma Globulin U PEP M-Jefe JEAN CARLOS Screen Pending ESTELITA-1 Antibody Pending SS-A/Ro IgG Antibody Pending SS-B/La IgG Antibody Pending Sm (Peoples) Antibody Pending HEAD ANIMAL KEEPER Antibody Pending Scl-70 Scleroderma Ab Pending Double Strand DNA Ab Pending Centromere B Antibody Pending POC Glucose 07/17/17 07/17/17 07/16/17 11:58 06:44 22:16 POC Glucose 241 H 216 H 299 H 07/16/17 16:39 POC Glucose 339 H Assessment/Plan 1. NSTEMI - s/p cath yesterday, see report, severe dz. May need CABG. Care as directed by cardiology. Maintain on asa, statin, plavix, metoprolol, RADHA deferred 2/2 poor renal function. 2. CKD III - will likely be fluctuant after heart cath. Dr. Abreu is following. No RADHA for now. Cath back in. 3. Ischemic cardiomyopathy - EF 30%, pt has swelling up entire legs BL, defer diuresis until renal function improves. No resp issues at this time. Ultrasound of the abdominal to assess ascites given her complaints today. If significant, will tap. 4. DMt2 - titrate insulin therapy. Very poorly controlled. A1C 14.9 on 07/10/17. No previous antidiabetic agents. Would benefit from Viktoza given cardiac condition and its superior effect on A1C. She is limited on options 2/2 poor renal function. 5. HTN - poorly controlled, trend and adjust as needed 6. Mild normocytic anemia - will trend. Stable. 7. Mild hyponatremia - unclear significance. 8. Acute cystitis - culture with yeast. DC rocephin. Start fluconazole 200 mg po qd x 14 days. DVT ppx: Heparin DC planning: pending stabilization of renal function and ascites. This patient was seen by Alejo Guajardo PA-C under the supervision of Doctor Hairston. <Danis Hairston - Last Filed: 07/17/17 14:29> - Physical Exam Vital Signs Temp Pulse Resp BP Pulse Ox 97.8 F 68 16 147/80 H 95 07/17/17 09:00 07/17/17 10:28 07/17/17 09:00 07/17/17 09:00 07/17/17 09:00 Oxygen Delivery Method Room Air Weight: 67 kg Body Mass Index (BMI) 23.3 Intake and Output for Last 24 Hours 07/15/17 07/16/17 07/17/17 23:59 23:59 23:59 Intake Total 1950 / 1950 1012 / 1012 Output Total 380 / 380 675 / 675 Balance 1570 / 1570 337 / 337 Microbiology Past 72 Hours 07/15/17 11:40 Urine Culture - Preliminary Urine Catheter - Lott Yeast Like Organism Laboratory Tests Past 24 Hrs 07/17/17 07/17/17 07/17/17 03:15 03:15 03:15 WBC RBC Hgb Hct MCV MCH MCHC RDW RDW Differential Plt Count MPV Immature Gran % (Auto) Neut % (Auto) Lymph % (Auto) [place] % (Auto) Eos % (Auto) Baso % (Auto) Absolute Neuts (auto) Absolute Lymphs (auto) Total Counted Sodium Potassium Chloride Carbon Dioxide Anion Gap BUN Creatinine Estim Creat Clear Calc Est GFR (MDRD) Af Amer Est GFR (MDRD) Non-Af BUN/Creatinine Ratio Glucose Calcium Total Protein (PEP) Pending Albumin (PEP) Pending Globulin (PEP) Pending Albumin/Globulin (PEP) Pending Mlyyq-3-Hrlqonnlp Pending Ldflp-8-Lmyzbgpmt Pending Beta Globulins Pending Gamma Globulins Pending M-Jefe Pending Urine Color Yellow Urine Clarity Cloudy Urine pH 5.0 Ur Specific [place] 1.020 Urine Protein 500 H Urine Glucose (UA) 100 H Urine Ketones Negative Urine Occult Blood 250 H Urine Nitrite Negative Urine Bilirubin Negative Urine Urobilinogen Normal Ur Leukocyte Esterase 500 H Urine RBC 5-10 SEEN Urine WBC 5-10 SEEN Ur Squamous Epith Cells 0-5 SEEN Urine Bacteria 2+ Urine Mucus RARE Urine Yeast 1+ Urine Total Protein Pending Urine Albumin Pending U Gjkjk-0-Rvgelqai Pending U Bsqfz-0-Mxgxsywm Pending U Beta Globulin Pending U Gamma Globulin Pending U PEP M-Jefe Pending JEAN CARLOS Screen ESTELITA-1 Antibody SS-A/Ro IgG Antibody SS-B/La IgG Antibody Sm (Peoples) Antibody HEAD ANIMAL KEEPER Antibody Scl-70 Scleroderma Ab Double Strand DNA Ab Centromere B Antibody 07/17/17 07/17/17 07/17/17 06:05 06:05 06:05 WBC 13.8 H RBC 3.98 L Hgb 12.6 Hct 35.8 L MCV 89.9 MCH 31.7 MCHC 35.2 RDW 12.7 RDW Differential 41.4 Plt Count 463 H MPV 9.5 Immature Gran % (Auto) 1.600 H Neut % (Auto) 75.3 H Lymph % (Auto) 10.8 L [place] % (Auto) 12.1 H Eos % (Auto) 0.1 Baso % (Auto) 0.1 Absolute Neuts (auto) 10.4 H Absolute Lymphs (auto) 1.49 Total Counted Not Reportable Sodium 133 L Potassium 5.8 H Chloride 108 H Carbon Dioxide 15.0 L Anion Gap 10 BUN 84 H Creatinine 1.78 H Estim Creat Clear Calc 34.22 Est GFR (MDRD) Af Amer 37 L Est GFR (MDRD) Non-Af 31 L BUN/Creatinine Ratio 47.2 H Glucose 230 H Calcium 7.6 L Total Protein (PEP) Albumin (PEP) Globulin (PEP) Albumin/Globulin (PEP) Hhfas-1-Vtfwemjsi Gddqp-2-Echuoshma Beta Globulins Gamma Globulins M-Jefe Urine Color Urine Clarity Urine pH Ur Specific [place] Urine Protein Urine Glucose (UA) Urine Ketones Urine Occult Blood Urine Nitrite Urine Bilirubin Urine Urobilinogen Ur Leukocyte Esterase Urine RBC Urine WBC Ur Squamous Epith Cells Urine Bacteria Urine Mucus Urine Yeast Urine Total Protein Urine Albumin U Wfehp-4-Vgapzjak U Lryju-8-Gyuetdcq U Beta Globulin U Gamma Globulin U PEP M-Jefe JEAN CARLOS Screen Pending ESTELITA-1 Antibody Pending SS-A/Ro IgG Antibody Pending SS-B/La IgG Antibody Pending Sm (Peoples) Antibody Pending HEAD ANIMAL KEEPER Antibody Pending Scl-70 Scleroderma Ab Pending Double Strand DNA Ab Pending Centromere B Antibody Pending 07/17/17 13:55 WBC RBC Hgb Hct MCV MCH MCHC RDW RDW Differential Plt Count MPV Immature Gran % (Auto) Neut % (Auto) Lymph % (Auto) [place] % (Auto) Eos % (Auto) Baso % (Auto) Absolute Neuts (auto) Absolute Lymphs (auto) Total Counted Sodium 134 L Potassium 5.4 H Chloride 108 H Carbon Dioxide 16.0 L Anion Gap 10 BUN 84 H Creatinine 1.77 H Estim Creat Clear Calc 34.41 Est GFR (MDRD) Af Amer 37 L Est GFR (MDRD) Non-Af 31 L BUN/Creatinine Ratio 47.5 H Glucose 217 H Calcium 7.4 L Total Protein (PEP) Albumin (PEP) Globulin (PEP) Albumin/Globulin (PEP) Civhh-6-Qjveppsyt Fosbj-4-Tskqigykb Beta Globulins Gamma Globulins M-Jefe Urine Color Urine Clarity Urine pH Ur Specific [place] Urine Protein Urine Glucose (UA) Urine Ketones Urine Occult Blood Urine Nitrite Urine Bilirubin Urine Urobilinogen Ur Leukocyte Esterase Urine RBC Urine WBC Ur Squamous Epith Cells Urine Bacteria Urine Mucus Urine Yeast Urine Total Protein Urine Albumin U Ffyhk-8-Irqlfgdi U Drtee-5-Topemvtp U Beta Globulin U Gamma Globulin U PEP M-Jefe JEAN CARLOS Screen ESTELITA-1 Antibody SS-A/Ro IgG Antibody SS-B/La IgG Antibody Sm (Peoples) Antibody HEAD ANIMAL KEEPER Antibody Scl-70 Scleroderma Ab Double Strand DNA Ab Centromere B Antibody POC Glucose 07/17/17 07/17/17 07/16/17 11:58 06:44 22:16 POC Glucose 241 H 216 H 299 H 07/16/17 16:39 POC Glucose 339 H Assessment/Plan This patient was seen in conjunction with Alejo Guajardo PA-C. I have independently interviewed and examined the patient and reviewed pertinent historical, laboratory, and other data. Please refer to Alejo Guajardo PA-C note for details of this patient's presentation, findings, and recommendations. I have reviewed Alejo Guajardo PA-C note and concur with documented findings. In brief, patient is a 72-year-old female with poorly controlled diabetes who presented with generalized weakness and non specific symptoms found to have hyperosmolar nonketotic state in addition to elevated troponin consistent with NSTEMI. Underwent left heart catheterization on 07/16/[address] Smythori was found to have severe multivessel disease for which cardiology recommended optimization of medical therapy with possible consideration for CABG when medically stable. Patient was also found to have turbid urine 07/17/2017 patient Lott catheter was reinserted by nephrology following development of urinary retention and worsening kidney function with hyperkalemia. Patient was started on fluconazole after a urine cultures came back positive for yeast Physical Examination: GENERAL: cooperative HEENT: Clear conjunctiva, NECK; supple, normal thyroid, CHEST: Diminished to auscultation bilaterally, HEART: Regular S1 S2, no audible murmurs ABDOMEN: soft, non-tender, normoactive bowel sounds, EXTREMITIES: No clubbing, no cyanosis. IMPORT/EXPORT ANALYST: Awake, no lateralizing signs. SKIN: No Rash Assessment: 1. Diabetes mellitus type 2 presented with hyperosmolar nonketotic state is resolved 2. Acute non-STEMI 3. Coronary artery disease; multivessel severe disease 4. Chronic Kidney disease stage III 5. Ischemic cardiac myopathy with an ejection fraction of 30% 6. Hyponatremia 7. Secondary to anemia of chronic disorder 8. Hypertension 9. CAUTI 10. Candiduria?? Asymptomatic candiduria patient started on fluconazole consultation placed infectious disease Recommendations: 1. I have discussed the results of my overview and impressions with the patient 2. Options for management were reviewed Code Visit Inpatient E&M: 03121 Subs Hosp L3
[2017-07-17 14:25] LABS: Anion Gap 10 (5-15); BUN 84 mg/dL (7-18); BUN/Creat Ratio 47.5 RATIO (10-20); Calcium,Total 7.4 mg/dL (8.5-10.1); Chloride 108 mmol/L (98-107); Creatinine, Serum 1.77 mg/dL (0.55-1.02); EST Glomerular Filtration Rate 31 mL/min (>60); Est Glom Filt Rate - Afr Amer 37 mL/min (>60); Estimated Creatinine Clearance 34.41 ml/min; Glucose 217 mg/dL (74-106); Potassium 5.4 mmol/L (3.5-5.1); Sodium Level 134 mmol/L (136-145)
[2017-07-17 17:01] LABS: Bedside Glucose 205 mg/dL (70-110)
[2017-07-17] MEDS: Tamsulosin HCl 0.4 MG Capsule PO (17:27)
[2017-07-17] MEDS: Fluconazole 100 MG Tablet 200 MG PO (17:27)
[2017-07-17] MEDS: Sodium Polystyrene Sulfonate 15 GM/60 ML UDC PO (21:19)
[2017-07-17] MEDS: Atorvastatin Calcium 40 MG Tablet PO (21:24)
[2017-07-17 21:36] LABS: Bedside Glucose 177 mg/dL (70-110)
[2017-07-18] VITALS (14 sets, daily range): BP systolic 126–162; BP diastolic 59–68; PULSE 60–77; RESP 16–20; TEMP 36.3–36.8; O2SAT 96–98
[2017-07-18 06:35] LABS: Absolute Lymphocyte Count 2.15 X10^3/ul (0.83-4.51); Absolute Neutrophil Count 8.5 X10^3/uL (2.0-7.7); Basophil# 0.04 X10^3/uL; Basophil% 0.3 % (0-1); Differential Indicated SCAN CRITERIA MET; Eosinophil# 0.29 X10^3/uL; Eosinophils% 2.3 % (0-5); Hematocrit 31.7 % (37-47); Hemoglobin 11.2 g/dl (12.0-15.0); Lymphocyte # 2.15 X10^3/ul (4.0); Lymphocyte % 16.8 % (19-41); Mean Corp Hgb Conc 35.3 g/gl (32-36); Mean Corpuscular Hgb 32.3 pg (27.0-32.0); Mean Corpuscular Volume 91.4 fL (81-99); Mean Platelet Vol. 9.6 fl (6.2-12.0); Monocyte# 1.56 X10^3/uL; Monocyte% 12.2 % (0-10); Neutrophil # 8.53 X10^3/uL (2.7-7.7); Neutrophil % 66.6 % (47-70); POSITIVE COUNT NO; POSITIVE DIFFERENTIAL YES; POSITIVE MORPHOLOGY NO; Platelet Count 457 K/mm3 (150-450); RBC Distribution Width CV 12.4 % (11.6-14.6); RBC Distribution Width SD 40.2 fl (35.1-43.9); Red Blood Count 3.47 M/mm3 (4.2-5.4); White Blood Count 12.8 K/mm3 (4.4-11.0)
[2017-07-18 06:46] LABS: Anion Gap 10 (5-15); BUN 90 mg/dL (7-18); BUN/Creat Ratio 55.9 RATIO (10-20); Calcium,Total 7.5 mg/dL (8.5-10.1); Chloride 109 mmol/L (98-107); Creatinine, Serum 1.61 mg/dL (0.55-1.02); EST Glomerular Filtration Rate 34 mL/min (>60); Est Glom Filt Rate - Afr Amer 42 mL/min (>60); Estimated Creatinine Clearance 39.35 ml/min; Glucose 85 mg/dL (74-106); Potassium 4.9 mmol/L (3.5-5.1); Sodium Level 138 mmol/L (136-145)
[2017-07-18 07:01] LABS: Bedside Glucose 91 mg/dL (70-110)
[2017-07-18 07:54] LABS: 24HR. UA Prot. Total Volume 1025 mL; Creat.Clear Total Volume 1025 mL; Creatinine Clearance 24 ml/min (100-200); Creatinine Serum Creat 1.6 mg/dL (0.6-1.0); Creatinine Urine 54.5 mg/dL (NO RANGE EST.); EST Glomerular Filtration Rate 34 mL/min (>60); Est Glom Filt Rate - Afr Amer 42 mL/min (>60)
[2017-07-18 08:09] LABS: Urine Protein (24 Hour) 767.1 mg/dL (<11.9)
--- NOTE | 2017-07-18 08:51 | PCM.PN.REN ---
Subjective: edema improved, renal fxn stable, hyperkalemia resolved. - Physical Exam General: Alert, Oriented x3, Cooperative Neck: Supple Lungs: Clear to auscultation Cardiovascular: Regular rate Abdomen: Bowel Sounds Present, Soft, Non Tender, Non-Distended Extremities: Edema Psych/Mental Status: Normal Affect, Appropriate, Alert and oriented to time, place, person, mood and affect Vital Signs Temp Pulse Resp BP Pulse Ox 97.9 F 75 16 128/59 H 96 07/18/17 03:15 07/18/17 03:15 07/18/17 03:15 07/18/17 03:15 07/18/17 03:15 Oxygen Delivery Method Room Air Weight: 69.7 kg Body Mass Index (BMI) 23.3 Intake and Output for Last 24 Hours 07/16/17 07/17/17 07/18/17 23:59 23:59 23:59 Intake Total 1950 / 1950 1132 / 1132 480 / 480 Output Total 380 / 380 900 / 900 675 / 675 Balance 1570 / 1570 232 / 232 -195 / -195 Microbiology Past 72 Hours 07/15/17 11:40 Urine Culture - Preliminary Urine Catheter - Lott Yeast Like Organism Laboratory Tests Past 24 Hrs 07/17/17 07/18/17 07/18/17 13:55 03:15 03:15 WBC RBC Hgb Hct MCV MCH MCHC RDW RDW Differential Plt Count MPV Immature Gran % (Auto) Neut % (Auto) Lymph % (Auto) [place] % (Auto) Eos % (Auto) Baso % (Auto) Absolute Neuts (auto) Absolute Lymphs (auto) Total Counted Sodium 134 L Potassium 5.4 H Chloride 108 H Carbon Dioxide 16.0 L Anion Gap 10 BUN 84 H Creatinine 1.77 H 1.6 H Estim Creat Clear Calc 34.41 Est GFR (MDRD) Af Amer 37 L 42 L Est GFR (MDRD) Non-Af 31 L 34 L BUN/Creatinine Ratio 47.5 H Glucose 217 H Calcium 7.4 L Urine Collection Time 24.0 24.0 Timed Urine Volume 1025 1025 Urine Creatinine 54.5 Creatinine Clearance 24 L Ur Total Protein 24 Hr 7862.8 H Urine Total Protein 767.1 H 07/18/17 07/18/17 05:50 05:50 WBC 12.8 H RBC 3.47 L Hgb 11.2 L Hct 31.7 L MCV 91.4 MCH 32.3 H MCHC 35.3 RDW 12.4 RDW Differential 40.2 Plt Count 457 H MPV 9.6 Immature Gran % (Auto) 1.800 H Neut % (Auto) 66.6 Lymph % (Auto) 16.8 L [place] % (Auto) 12.2 H Eos % (Auto) 2.3 Baso % (Auto) 0.3 Absolute Neuts (auto) 8.5 H Absolute Lymphs (auto) 2.15 Total Counted Not Reportable Sodium 138 Potassium 4.9 Chloride 109 H Carbon Dioxide 19.0 L Anion Gap 10 BUN 90 H Creatinine 1.61 H Estim Creat Clear Calc 39.35 Est GFR (MDRD) Af Amer 42 L Est GFR (MDRD) Non-Af 34 L BUN/Creatinine Ratio 55.9 H Glucose 85 Calcium 7.5 L Urine Collection Time Timed Urine Volume Urine Creatinine Creatinine Clearance Ur Total Protein 24 Hr Urine Total Protein POC Glucose 07/18/17 07/17/17 07/17/17 06:57 21:15 16:55 POC Glucose 91 177 H 205 H 07/17/17 11:58 POC Glucose 241 H Assessment/Plan 1. Acute on CKD stage 4 due to heart cath, urinary retention, underlying diabetic nephropathy. renal fxn improving. 24h urine CRCL 24cc/min with 7.8g protein. SCr 1.6 with baseline 1.4. Continue to monitor renal fxn. 2. Nephrotic syndrome from diabetic nephropathy, hypoalbuminemia. Hold on diuretics. Oxygenation stable. Continue compression stockings 3. Metabolic acidosis stable 4. Hyperkalemia improved with kayexalate, 2g K diet 5. NSTEMI on plavix, s/p heart cath. Medical mgmt 6. Ischemic Cardiomyopathy EF 30% on echo 07/11/17 on BB. Hold ACEI due to hx hyperkalemia, renal failure. Consider ARB therapy when renal fxn improved. 7. HTN stable 8. DM2 with retinopathy, poorly controlled diabetes due to malcompliance 9. Severe protein/calorie malnutrition. Add glucerna 10. Tobacco use. Continue with smoking cessation. Quit at time of admit 11. Check SPEP, UPEP, 24h urine, JEAN CARLOS
--- NOTE | 2017-07-18 08:56 | PN.CARD_ITS ---
Subjectve: Patient seen and evaluated. Appears to be doing better. Objective: Vital Signs Temp Pulse Resp BP Pulse Ox 97.9 F 75 16 128/59 H 96 07/18/17 03:15 07/18/17 03:15 07/18/17 03:15 07/18/17 03:15 07/18/17 03:15 Oxygen Delivery Method Room Air Weight: 153 lb 10.595 oz Body Mass Index (BMI) 23.3 Intake and Output for Last 24 Hours 07/16/17 07/17/17 07/18/17 23:59 23:59 23:59 Intake Total 1950 / 1950 1132 / 1132 480 / 480 Output Total 380 / 380 900 / 900 675 / 675 Balance 1570 / 1570 232 / 232 -195 / -195 General: Awake, Alert, Oriented x 3 HEENT: PERRL, EOMI, Sclera Non Icteric Neck: Supple, Good ROM, No Lymph Node Enlargement Lungs: Clear to auscultation Cardiovascular: Regular Rhythm, Normal S1, Normal S2, No Murmurs, No Rubs, No Gallops Vascular: No Carotid Bruits, Normal Femoral Pulses, Normal Radial Pulses, Normal Dorsalis Pedal Pulse, Normal Posterior Tibial Pulses Abdomen: Bowel Sounds Present, Soft, Non Tender, No HSM, No Organomegaly Extremities: No Cyanosis, No Clubbing, No edema Neurological: No Focal Motor or Sensory Deficit 07/17/17 13:55: Sodium 134 L, Potassium 5.4 H, Chloride 108 H, Carbon Dioxide 16.0 L, Anion Gap 10, BUN 84 H, Creatinine 1.77 H, Est GFR (MDRD) Af Amer 37 L, Est GFR (MDRD) Non-Af 31 L, BUN/Creatinine Ratio 47.5 H, Glucose 217 H, Calcium 7.4 L 07/18/17 03:15: Creatinine 1.6 H, Est GFR (MDRD) Af Amer 42 L, Est GFR (MDRD) Non-Af 34 L 07/18/17 05:50: WBC 12.8 H, RBC 3.47 L, Hgb 11.2 L, Hct 31.7 L, MCV 91.4, MCH 32.3 H, MCHC 35.3, RDW 12.4, RDW Differential 40.2, Plt Count 457 H, MPV 9.6, Immature Gran % (Auto) 1.800 H, Neut % (Auto) 66.6, Lymph % (Auto) 16.8 L, [place] % (Auto) 12.2 H, Eos % (Auto) 2.3, Baso % (Auto) 0.3, Absolute Neuts (auto) 8.5 H, Total Counted Not Reportable 07/18/17 05:50: Sodium 138, Potassium 4.9, Chloride 109 H, Carbon Dioxide 19.0 L , Anion Gap 10, BUN 90 H, Creatinine 1.61 H, Est GFR (MDRD) Af Amer 42 L, Est GFR (MDRD) Non-Af 34 L, BUN/Creatinine Ratio 55.9 H, Glucose 85, Calcium 7.5 L Rhythm: EKG: ECHO: Stress Test: Cardiac Cath: PCI: CT Surgery: Holter monitor: EPS: PPM: CXR: Chest CT Scan: Assessment/Plan 1. Non-ST elevation myocardial infarction. She presents with uncontrolled diabetes mellitus and is noted to have EKG changes as well as cardiac enzymes compatible with a non-ST elevation myocardial infarction. She underwent a cardiac catheterization which demonstrated the following: Left main coronary artery with mild disease: Left anterior descending artery with severe proximal to mid segment disease and mild to moderate distal disease. Dominant left circumflex artery with proximal 70-80% stenosis First obtuse marginal branch with 70-80% proximal stenosis. Nondominant right coronary artery with no significant stenosis. Globally reduced left ventricular ejection fraction estimated EF 30% After discussion with the child care director it appears that the best mode of revascularization would likely be surgical intervention. We will continue to manage her medically for now until she is stabilized from the renal standpoint. Had a long and detailed discussion with her this morning and told her that we would see her in the office and make further recommendations. 2. Hypertension Her blood pressure is noted to be uncontrolled at this time. After appropriate hydration she will be started on an RADHA inhibitor. At this particular time the beta-oneal can be initiated and she can be followed. We will await further workup from the renal service. Thank you for allowing me to participate in the care of your patient. Please don't hesitate to call if any issues arise
[2017-07-18] MEDS: Fluconazole 100 MG Tablet 200 MG PO (09:00)
[2017-07-18] MEDS: Calcium Acetate 667 MG Capsule PO ×3 (09:00→16:59)
[2017-07-18] MEDS: Metoprolol Tartrate 25 MG Tablet PO ×2 (09:01→11:04)
[2017-07-18] MEDS: Aspirin 81 MG TAB.CHEW PO (09:01)
[2017-07-18] MEDS: Pantoprazole Sodium 40 MG Tablet PO (09:02)
[2017-07-18] MEDS: Glucerna Shake 120 ML LIQUID PO ×2 (09:41→21:12)
[2017-07-18 12:25] LABS: Bedside Glucose 149 mg/dL (70-110)
--- NOTE | 2017-07-18 12:41 | CON.PCM_ITS ---
Problem List (1) Candiduria Status: Acute Reason for Consult: ike Consulted by: Dr. Hairston History of Present Illness: The patient is a 62 year old F with DM and many years without medical care who presented 07/10 with high glucose at home. Had not been feeling well for a while with malaise, fatigue, polyuria, intermittent vision changes. No chest pain. No SOB. No fever. No dysuria. Came to ED, gluc was over 800. UA on 07/15 showed inflammation, and Ucx with yeast. Started on fluconazole. Feeling better overall but c/o diffuse edema. Full ROS performed and neg except as noted above. - Medical History Past Medical History (Chronic Problems): Chronic Problems Hypertension (Chronic) Type 2 diabetes mellitus (Chronic) Allergies/Adverse Reactions: Allergies ibuprofen Allergy (Verified 07/10/17 12:30) Anaphylaxis Iodinated Contrast- Oral and IV Dye [CONTRASTS] Allergy (Verified 07/10/17 12:30 ) Anaphylaxis Penicillins Allergy (Verified 07/10/17 12:30) Hives Home Medications: Ambulatory Orders Medication Instructions Recorded NK [NK] 07/10/17 - Social History Tobacco Use: cigarettes SMOKING STATUS:: Current every day smoker Vital Signs Temp Pulse Resp BP Pulse Ox 97.9 F 67 18 126/66 H 96 07/18/17 08:56 07/18/17 11:24 07/18/17 08:56 07/18/17 08:56 07/18/17 08:56 Oxygen Delivery Method Room Air Weight: 69.7 kg Body Mass Index (BMI) 23.3 Microbiology Past 72 Hours 07/15/17 11:40 Urine Culture - Preliminary Urine Catheter - Lott Yeast Like Organism Laboratory Tests Past 24 Hrs 07/17/17 07/18/17 07/18/17 13:55 03:15 03:15 WBC RBC Hgb Hct MCV MCH MCHC RDW RDW Differential Plt Count MPV Immature Gran % (Auto) Neut % (Auto) Lymph % (Auto) [place] % (Auto) Eos % (Auto) Baso % (Auto) Absolute Neuts (auto) Absolute Lymphs (auto) Total Counted Sodium 134 L Potassium 5.4 H Chloride 108 H Carbon Dioxide 16.0 L Anion Gap 10 BUN 84 H Creatinine 1.77 H 1.6 H Estim Creat Clear Calc 34.41 Est GFR (MDRD) Af Amer 37 L 42 L Est GFR (MDRD) Non-Af 31 L 34 L BUN/Creatinine Ratio 47.5 H Glucose 217 H Calcium 7.4 L Urine Collection Time 24.0 24.0 Timed Urine Volume 1025 1025 Urine Creatinine 54.5 Creatinine Clearance 24 L Ur Total Protein 24 Hr 7862.8 H Urine Total Protein 767.1 H 07/18/17 07/18/17 05:50 05:50 WBC 12.8 H RBC 3.47 L Hgb 11.2 L Hct 31.7 L MCV 91.4 MCH 32.3 H MCHC 35.3 RDW 12.4 RDW Differential 40.2 Plt Count 457 H MPV 9.6 Immature Gran % (Auto) 1.800 H Neut % (Auto) 66.6 Lymph % (Auto) 16.8 L [place] % (Auto) 12.2 H Eos % (Auto) 2.3 Baso % (Auto) 0.3 Absolute Neuts (auto) 8.5 H Absolute Lymphs (auto) 2.15 Total Counted Not Reportable Sodium 138 Potassium 4.9 Chloride 109 H Carbon Dioxide 19.0 L Anion Gap 10 BUN 90 H Creatinine 1.61 H Estim Creat Clear Calc 39.35 Est GFR (MDRD) Af Amer 42 L Est GFR (MDRD) Non-Af 34 L BUN/Creatinine Ratio 55.9 H Glucose 85 Calcium 7.5 L Urine Collection Time Timed Urine Volume Urine Creatinine Creatinine Clearance Ur Total Protein 24 Hr Urine Total Protein - Other Studies Radiology: [] reviewed Other Studies: [] Route of nutrition/ use of supplements: [] Nutritional Intake: [] IV Site: [] Lott Catheter: [] - Physical Exam General: Alert, Oriented x3, Cooperative, No apparent distress HEENT: Atraumatic, PERRLA, EOMI Neck: Supple, No Nodes Lungs: Clear to auscultation, Normal air movement Cardiovascular: Regular rate, Regular Rhythm Abdomen: Bowel Sounds Present, Soft, Non Tender, Non-Distended Extremities: Edema Skin: No rashes IV Site: Peripheral, without redness Musculoskeletal: No Tenderness to Palpation of Joints or Extremities - Assessment/Plan Antibiotics: [] Assessment/Plan: [] Candiduria - relatively asymptomatic, but difficult to say if urinary frequency couldn't partly be explained by ike uti. With high glucose, she certainly would be at increased risk for infection. I think it would be reasonable to do 7 day total course of fluconazole, stop date 07/23/17. Thank you, will follow.
--- NOTE | 2017-07-18 13:35 | CASEMGMT ---
CRISPIN met with patient to provide support. She has had a lengthy stay and has received many new diagnoses. She was open to talking with SW. She said she is feeling much better as things are being explained a little better so she is understanding more. She said she had a melt down yesterday, but feels better today. She has a supportive family and supportive friends. She thanked CRISPIN for stopping by. Jennifer REAL
[2017-07-18 14:35] LABS: ANTINUCLEAR ANTIBODIES DIRECT Negative (Negative)
--- NOTE | 2017-07-18 14:53 | CASEMGMT ---
Per therapy notes, they are recommending HHC for pt at this time. This RN CM to room to speak with pt regarding recommendation at this time. Pt states had not been homebound prior to this admission and would like to think about HHC vs outpt therapy at this time. This RN CM will check back with pt tomorrow regarding same. Pt voices no further concerns/needs at this time. SStaten RN CM
--- NOTE | 2017-07-18 15:22 | PN_ITS ---
<Alejo Guajardo - Last Filed: 07/18/17 15:12> Patient Problems: Active and Suspected Problems Candiduria (Acute) Subjective: This morning the patient is feeling overall improvement. When I first arrived she had just returned from hallway ambulation with PTOT and was doing very well , with no SOB, dizziness, LH. She is to meet with the teachers' assistant today to discuss her diabetic diet. She feels that her legs are improved but thinks that she is up 50 pound of fluid that she thinks is all in her abdomen despite that the ultrasound did not show a large quantity of ascites. She has no SOB or cough today. No palpitations, CP or pressure. She is tolerating her diet. No n/ v. She did eventually have a BM yesterday evening. - Physical Exam General: Alert, Oriented x3, Cooperative HEENT: Atraumatic, PERRLA, EOMI, Normocephalic Neck: Supple, No JVD, Negative Carotid Bruits Lungs: Clear to auscultation, Normal air movement Cardiovascular: Regular rate, No murmurs Abdomen: Bowel Sounds Present, Soft, Non Tender Extremities: Capillary Refill Less than 3 Seconds, Edema - 2-3+ pitting edema BLE Skin: No rashes, No breakdown Musculoskeletal: No Tenderness to Palpation of Joints or Extremities Neurological: Cranial nerves II-XII grossly intact Psych/Mental Status: Normal Affect, Appropriate, Alert and oriented to time, place, person, mood and affect Vital Signs Temp Pulse Resp BP Pulse Ox 97.3 F L 60 18 133/60 H 98 07/18/17 13:56 07/18/17 13:56 07/18/17 13:56 07/18/17 13:56 07/18/17 13:56 Oxygen Delivery Method Room Air Weight: 69.7 kg Body Mass Index (BMI) 23.3 Intake and Output for Last 24 Hours 07/16/17 07/17/17 07/18/17 23:59 23:59 23:59 Intake Total 1950 / 1950 1132 / 1132 840 / 840 Output Total 380 / 380 900 / 900 875 / 875 Balance 1570 / 1570 232 / 232 -35 / -35 Microbiology Past 72 Hours 07/15/17 11:40 Urine Culture - Final Urine Catheter - Lott July albicans Laboratory Tests Past 24 Hrs 07/17/17 07/18/1718 06:05 03:15 03:15 WBC RBC Hgb Hct MCV MCH MCHC RDW RDW Differential Plt Count MPV Immature Gran % (Auto) Neut % (Auto) Lymph % (Auto) [place] % (Auto) Eos % (Auto) Baso % (Auto) Absolute Neuts (auto) Absolute Lymphs (auto) Total Counted Sodium Potassium Chloride Carbon Dioxide Anion Gap BUN Creatinine 1.6 H Estim Creat Clear Calc Est GFR (MDRD) Af Amer 42 L Est GFR (MDRD) Non-Af 34 L BUN/Creatinine Ratio Glucose Calcium Urine Collection Time 24.0 24.0 Timed Urine Volume 1025 1025 Urine Creatinine 54.5 Creatinine Clearance 24 L Ur Total Protein 24 Hr 7862.8 H Urine Total Protein 767.1 H JEAN CARLOS Screen Negative 07/18/17 07/18/17 05:50 05:50 WBC 12.8 H RBC 3.47 L Hgb 11.2 L Hct 31.7 L MCV 91.4 MCH 32.3 H MCHC 35.3 RDW 12.4 RDW Differential 40.2 Plt Count 457 H MPV 9.6 Immature Gran % (Auto) 1.800 H Neut % (Auto) 66.6 Lymph % (Auto) 16.8 L [place] % (Auto) 12.2 H Eos % (Auto) 2.3 Baso % (Auto) 0.3 Absolute Neuts (auto) 8.5 H Absolute Lymphs (auto) 2.15 Total Counted Not Reportable Sodium 138 Potassium 4.9 Chloride 109 H Carbon Dioxide 19.0 L Anion Gap 10 BUN 90 H Creatinine 1.61 H Estim Creat Clear Calc 39.35 Est GFR (MDRD) Af Amer 42 L Est GFR (MDRD) Non-Af 34 L BUN/Creatinine Ratio 55.9 H Glucose 85 Calcium 7.5 L Urine Collection Time Timed Urine Volume Urine Creatinine Creatinine Clearance Ur Total Protein 24 Hr Urine Total Protein JEAN CARLOS Screen POC Glucose 07/18/17 07/18/17 07/17/17 12:17 06:57 21:15 POC Glucose 149 H 91 177 H 07/17/17 16:55 POC Glucose 205 H Assessment/Plan Active and Suspected Problems Candiduria (Acute) 1. NSTEMI - s/p cath. see report, severe dz. Probably needs CABG - she will discuss this with cardiology as an outpatient. Maintain on asa, statin, plavix, metoprolol, RADHA deferred 2/2 poor renal function. 2. CKD III - improved. Hyperkalemia resolved s/p [address] Abreu following. Oren trial out today and monitor for further retention. Continue flomax. 3. Ischemic cardiomyopathy - EF 30%, pt has swelling up entire legs BL, defer diuresis until renal function improves. No resp issues at this time. Ultrasound of the abdominal with mild ascites, right pleural effusion. 4. DMt2 - improved since admission A1C 14.9 on 07/10/17. No previous antidiabetic agents. She knew she was a diabetic but was not taking anything. Automotive Service Professional consult. Would benefit from Viktoza given cardiac condition and its superior effect on A1C. She is limited on options 2/2 poor renal function. 5. HTN - stable 6. Mild normocytic anemia - Stable. 7. Mild hyponatremia - resolved. 8. Acute cystitis - ID following. 7 days fluconazole. Leukocytosis mildly improved. Likely 2/2 severely uncontrolled diabetes DVT ppx: Heparin DC planning: if renal function stable likely ok for DC tomorrow. Home health vs outpatient PTOT. This patient was seen by Alejo Guajardo PA-C under the supervision of Doctor Yovanny. <Danis Hairston - Last Filed: 07/18/17 15:28> - Physical Exam Vital Signs Temp Pulse Resp BP Pulse Ox 97.3 F L 60 18 133/60 H 98 07/18/17 13:56 07/18/17 13:56 07/18/17 13:56 07/18/17 13:56 07/18/17 13:56 Oxygen Delivery Method Room Air Weight: 69.7 kg Body Mass Index (BMI) 23.3 Intake and Output for Last 24 Hours 07/16/17 07/17/17 07/18/17 23:59 23:59 23:59 Intake Total 1950 / 1950 1132 / 1132 840 / 840 Output Total 380 / 380 900 / 900 875 / 875 Balance 1570 / 1570 232 / 232 -35 / -35 Microbiology Past 72 Hours 07/15/17 11:40 Urine Culture - Final Urine Catheter - Oren July albicans Laboratory Tests Past 24 Hrs 07/17/17 07/18/17 07/18/17 06:05 03:15 03:15 WBC RBC Hgb Hct MCV MCH MCHC RDW RDW Differential Plt Count MPV Immature Gran % (Auto) Neut % (Auto) Lymph % (Auto) [place] % (Auto) Eos % (Auto) Baso % (Auto) Absolute Neuts (auto) Absolute Lymphs (auto) Total Counted Sodium Potassium Chloride Carbon Dioxide Anion Gap BUN Creatinine 1.6 H Estim Creat Clear Calc Est GFR (MDRD) Af Amer 42 L Est GFR (MDRD) Non-Af 34 L BUN/Creatinine Ratio Glucose Calcium Urine Collection Time 24.0 24.0 Timed Urine Volume 1025 1025 Urine Creatinine 54.5 Creatinine Clearance 24 L Ur Total Protein 24 Hr 7862.8 H Urine Total Protein 767.1 H JEAN CARLOS Screen Negative 07/18/17 07/18/17 05:50 05:50 WBC 12.8 H RBC 3.47 L Hgb 11.2 L Hct 31.7 L MCV 91.4 MCH 32.3 H MCHC 35.3 RDW 12.4 RDW Differential 40.2 Plt Count 457 H MPV 9.6 Immature Gran % (Auto) 1.800 H Neut % (Auto) 66.6 Lymph % (Auto) 16.8 L [place] % (Auto) 12.2 H Eos % (Auto) 2.3 Baso % (Auto) 0.3 Absolute Neuts (auto) 8.5 H Absolute Lymphs (auto) 2.15 Total Counted Not Reportable Sodium 138 Potassium 4.9 Chloride 109 H Carbon Dioxide 19.0 L Anion Gap 10 BUN 90 H Creatinine 1.61 H Estim Creat Clear Calc 39.35 Est GFR (MDRD) Af Amer 42 L Est GFR (MDRD) Non-Af 34 L BUN/Creatinine Ratio 55.9 H Glucose 85 Calcium 7.5 L Urine Collection Time Timed Urine Volume Urine Creatinine Creatinine Clearance Ur Total Protein 24 Hr Urine Total Protein JEAN CARLOS Screen POC Glucose 07/18/17 07/18/17 07/17/17 12:17 06:57 21:15 POC Glucose 149 H 91 177 H 07/17/17 16:55 POC Glucose 205 H Assessment/Plan This patient was seen in conjunction with Alejo Guajardo PA-C. I have independently interviewed and examined the patient and reviewed pertinent historical, laboratory, and other data. Please refer to Alejo Guajardo PA-C note for details of this patient's presentation, findings, and recommendations. I have reviewed Alejo Guajardo PA-C note and concur with documented findings. In brief, patient is a 72-year-old female with poorly controlled diabetes who presented with generalized weakness and non specific symptoms found to have hyperosmolar nonketotic state in addition to elevated troponin consistent with NSTEMI. Underwent left heart catheterization on 07/16/[address] Smythori was found to have severe multivessel disease for which cardiology recommended optimization of medical therapy with possible consideration for CABG when medically stable. Patient was also found to have turbid urine 07/17/2017 patient Lott catheter was reinserted by nephrology following development of urinary retention and worsening kidney function with hyperkalemia. Patient was started on fluconazole after a urine cultures came back positive for yeast 07/18/2017: Patient is seen patient has hematuria in his Lott catheter was seen in consultation by infectious disease Dr. Nickerson who did agree with continuation of patient fluconazole for 7 days Physical Examination: GENERAL: cooperative HEENT: Clear conjunctiva, NECK; supple, normal thyroid, CHEST: Diminished to auscultation bilaterally, HEART: Regular S1 S2, no audible murmurs ABDOMEN: soft, non-tender, normoactive bowel sounds, EXTREMITIES: No clubbing, no cyanosis. PROTEOMICS SCIENTIST: Awake, no lateralizing signs. SKIN: No Rash Assessment: 1. Diabetes mellitus type 2 presented with hyperosmolar nonketotic state is resolved 2. Acute non-STEMI 3. Coronary artery disease; multivessel severe disease 4. Chronic Kidney disease stage III 5. Ischemic cardiac myopathy with an ejection fraction of 30% 6. Hyponatremia 7. Secondary to anemia of chronic disorder 8. Hypertension 9. CAUTI 10. Candiduria ; consultation placed to infectious disease Recommendations: 1. I have discussed the results of my overview and impressions with the patient 2. Options for management were reviewed Code Visit Inpatient E&M: 79982 Subs Hosp L2
[2017-07-18 16:09] LABS: PROEL- A/G Ratio 0.8 (0.7-1.7); PROEL- Albumin 1.9 g/dL (2.9-4.4); PROEL- Alpha-1 Globulin 0.3 g/dL (0.0-0.4); PROEL- Beta Globulin 0.8 g/dL (0.7-1.3); PROEL- Gamma Globulin 0.3 g/dL (0.4-1.8); PROEL- Globulin, Total 2.3 g/dL (2.2-3.9); PROEL- TOTAL PROTEIN 4.2 g/dL (6.0-8.5); PROELU- Albumin, Urine 71.7 % (.); PROELU- Alpha-1-Globulin,Ur 1.8 % (.); PROELU- Alpha-2-Globulin,Ur 5.1 % (.); PROELU- Beta Globulin, Ur 16.3 % (.); PROELU- Gamma Globulin, Ur 5.1 % (.)
[2017-07-18] MEDS: Tamsulosin HCl 0.4 MG Capsule PO (16:59)
[2017-07-18 17:51] LABS: Bedside Glucose 136 mg/dL (70-110)
[2017-07-18] MEDS: Metoprolol Tartrate 50 MG Tablet PO (21:03)
[2017-07-18] MEDS: Atorvastatin Calcium 40 MG Tablet PO (21:03)
[2017-07-18 22:06] LABS: Bedside Glucose 190 mg/dL (70-110)
[2017-07-19] VITALS (7 sets, daily range): BP systolic 101–126; BP diastolic 60–85; PULSE 63–70; RESP 16–20; TEMP 36.4–36.6; O2SAT 94–96
[2017-07-19 05:38] LABS: Albumin, Serum 1.5 g/dL (3.2-5.0); BUN 91 mg/dL (7-18); BUN/Creat Ratio 55.2 RATIO (10-20); Calcium,Total 7.5 mg/dL (8.5-10.1); Chloride 109 mmol/L (98-107); Creatinine, Serum 1.65 mg/dL (0.55-1.02); EST Glomerular Filtration Rate 33 mL/min (>60); Est Glom Filt Rate - Afr Amer 40 mL/min (>60); Glucose 108 mg/dL (74-106); Phosphorus 6.9 mg/dL (2.5-4.9); Potassium 4.6 mmol/L (3.5-5.1); Sodium Level 139 mmol/L (136-145)
[2017-07-19 06:30] LABS: Bedside Glucose 105 mg/dL (70-110)
--- NOTE | 2017-07-19 06:41 | NURSING ---
Bladder scanned for greater than 999 but every time I scanned pt. it gave a different reading. Not sure if it was reading bladder or fluid surrounding bladder. Pt. trying to void at this time. She thinks she got up earlier and voided a small amount but missed hat. Will monitor.
--- NOTE | 2017-07-19 08:02 | PCM.PN.REN ---
Patient Problems: Active and Suspected Problems Candiduria (Acute) Subjective: still with urinary retention issues after arroyo removed last night. +moist cough hx COPD, tobacco use. Still with leg swelling, unchanged. Creatinine slightly elevated at 1.65. Will need to check bladder scan. - Physical Exam General: Alert, Oriented x3, Cooperative Lungs: Wheezes - faint wheeze Cardiovascular: Regular rate Abdomen: Bowel Sounds Present, Soft, Non Tender, Non-Distended Extremities: Edema Psych/Mental Status: Normal Affect, Anxious, Alert and oriented to time, place, person, mood and affect Vital Signs Temp Pulse Resp BP Pulse Ox 97.9 F 65 20 H 113/60 96 07/19/17 02:40 07/19/17 07:13 07/19/17 02:40 07/19/17 02:40 07/19/17 02:40 Oxygen Delivery Method Room Air Weight: 69.5 kg Body Mass Index (BMI) 23.3 Intake and Output for Last 24 Hours 07/17/17 07/18/17 07/19/17 23:59 23:59 23:59 Intake Total 1132 / 1132 1320 / 1320 25 / 25 Output Total 900 / 900 1625 / 1625 100 / 100 Balance 232 / 232 -305 / -305 -75 / -75 Microbiology Past 72 Hours 07/15/17 11:40 Urine Culture - Final Urine Catheter - Arroyo July albicans Laboratory Tests Past 24 Hrs 07/17/17 07/18/17 07/19/17 06:05 03:15 05:05 Sodium 139 Potassium 4.6 Chloride 109 H Carbon Dioxide 20.0 L BUN 91 H Creatinine 1.65 H Estim Creat Clear Calc 38.40 Est GFR (MDRD) Af Amer 40 L Est GFR (MDRD) Non-Af 33 L BUN/Creatinine Ratio 55.2 H Glucose 108 H Calcium 7.5 L Phosphorus 6.9 H Albumin 1.5 L Urine Total Protein 767.1 H JEAN CARLOS Screen Negative POC Glucose 07/19/17 07/18/17 07/18/17 06:24 21:09 16:57 POC Glucose 105 190 H 136 H 07/18/17 12:17 POC Glucose 149 H Assessment/Plan Active and Suspected Problems Candiduria (Acute) 1. Acute on CKD stage 4 due to urinary retention, underlying diabetic nephropathy. Cr slightly elevated t 1.65, check bladder scan. May need intermittent straight cath. 24h urine CRCL 24cc/min with 7.8g protein. SCr 1.6 with baseline 1.4. Continue to monitor renal fxn. 2. Nephrotic syndrome from diabetic nephropathy, hypoalbuminemia. Continue compression stockings 3. Metabolic acidosis stable 4. Hyperkalemia improved with kayexalate, 2g K diet 5. NSTEMI on plavix, s/p heart cath. Medical mgmt 6. Ischemic Cardiomyopathy EF 30% on echo 07/11/17 on BB. Hold ACEI due to hx hyperkalemia, renal failure. Consider ARB therapy when renal fxn improved. 7. HTN stable 8. DM2 with retinopathy, poorly controlled diabetes due to malcompliance 9. Severe protein/calorie malnutrition. Add glucerna 10. Tobacco use. Continue with smoking cessation. 11. Check SPEP, UPEP, 24h urine, JEAN CARLOS
[2017-07-19] MEDS: Calcium Acetate 667 MG Capsule PO ×2 (08:59→13:39)
[2017-07-19] MEDS: Aspirin 81 MG TAB.CHEW PO (08:59)
[2017-07-19] MEDS: Glucerna Shake 120 ML LIQUID PO (08:59)
[2017-07-19] MEDS: Magnesium Hydroxide 30 ML UDC PO (08:59)
[2017-07-19] MEDS: Pantoprazole Sodium 40 MG Tablet PO (08:59)
[2017-07-19] MEDS: Metoprolol Tartrate 50 MG Tablet PO (09:00)
[2017-07-19] MEDS: Fluconazole 100 MG Tablet PO (09:00)
--- NOTE | 2017-07-19 10:33 | PCM.PN.ID ---
Patient Problems: Active and Suspected Problems Candiduria (Acute) Subjective: Feeling better, no fever, no dysuria. - Physical Exam General: Alert, Cooperative, No apparent distress Lungs: Clear to auscultation, Normal air movement Cardiovascular: Regular rate, Regular Rhythm Abdomen: Soft, Non Tender, Non-Distended Skin: No rashes Vital Signs Temp Pulse Resp BP Pulse Ox 97.6 F L 68 20 H 126/60 H 94 07/19/17 08:40 07/19/17 09:00 07/19/17 08:40 07/19/17 08:40 07/19/17 08:40 Oxygen Delivery Method Room Air Weight: 69.5 kg Body Mass Index (BMI) 23.3 Intake and Output for Last 24 Hours 07/17/17 07/18/17 07/19/17 23:59 23:59 23:59 Intake Total 1132 / 1132 1320 / 1320 25 / 25 Output Total 900 / 900 1625 / 1625 100 / 100 Balance 232 / 232 -305 / -305 -75 / -75 Microbiology Past 72 Hours 07/15/17 11:40 Urine Culture - Final Urine Catheter - Lott July albicans Laboratory Tests Past 24 Hrs 07/17/17 07/19/17 06:05 05:05 Sodium 139 Potassium 4.6 Chloride 109 H Carbon Dioxide 20.0 L BUN 91 H Creatinine 1.65 H Estim Creat Clear Calc 38.40 Est GFR (MDRD) Af Amer 40 L Est GFR (MDRD) Non-Af 33 L BUN/Creatinine Ratio 55.2 H Glucose 108 H Calcium 7.5 L Phosphorus 6.9 H Albumin 1.5 L JEAN CARLOS Screen Negative POC Glucose 07/19/17 07/18/17 07/18/17 06:24 21:09 16:57 POC Glucose 105 190 H 136 H 07/18/17 12:17 POC Glucose 149 H Route of nutrition/ use of supplements: [] Nutritional Intake: [] IV Site: [] Lott Catheter: [] - Assessment/Plan Antibiotics: [] Assessment/Plan: [] Candiduria - relatively asymptomatic, but difficult to say if urinary frequency couldn't partly be explained by july uti. With high glucose, she certainly would be at increased risk for infection. Plan is for 7 day total course of fluconazole, stop date 07/23/17. Will follow as needed. Please call with any ?s.
--- NOTE | 2017-07-19 11:14 | CASEMGMT ---
This RN CM to room to f/u with pt regarding outpt therapy recommendations presented yesterday. Pt states that she feels there is no need for outpt therapy at this time. This RN CM advised pt that if she feels the need for outpt therapy once home than she can f/u with her PCP and they can set that up for her, voices understanding. This RN CM informed pt about WILMAN Smith PAEDIATRIC SURGEON at this time, voices understanding. This RN CM asked pt if ok if this RN CM set up appointment for pt with WILMAN Smith at this time. Pt agrees at this time. Call to [facility] at this time and appointment set up for pt 08/16/17 at 1500. Appt placed in d/c appointments for pt d/c instructions at this time. Pt updated on appointment, voices understanding. June FRAGOSO CM
--- NOTE | 2017-07-19 11:41 | DCINST_ITS ---
- Discharge Diagnoses Current Active Problems: Current Active and Chronic Problems Hypertension (Chronic) Type 2 diabetes mellitus (Chronic) Candiduria (Acute) You will use the following diet at home:: Calorie/Carbohydrate Controlled ( specify 1200, 1400, etc), Cardiac Discharge Activity: Return to Normal Activity Call your doctor if you observe: Inability to urinate, Shortness of breath, Dizziness, Fainting spells, Chest pain, Increased palpitations (irregular heartbeat) Instructions: ED Retention Urinary Female Additional Instructions: You will need to straight cath as needed at home if you are not voiding a significant amount or if your bladder feels full and you are unable to void. You will need to follow up with urology to further assess urinary retention. Allergies/Adverse Reactions: Allergies ibuprofen Allergy (Verified 07/10/17 12:30) Anaphylaxis Iodinated Contrast- Oral and IV Dye [CONTRASTS] Allergy (Verified 07/10/17 12:30 ) Anaphylaxis Penicillins Allergy (Verified 07/10/17 12:30) Hives Medications to take at Discharge Aspirin [Aspirin, Baby] 81 mg PO DAILY@0800 #30 tab.chew 07/19/17 Atorvastatin Calcium [Lipitor] 40 mg PO QHS #30 tab 07/19/17 Calcium Acetate [Phoslo Gel Cap] 667 mg PO TIDCM #90 cap 07/19/17 Clopidogrel Bisulfate [Plavix] 75 mg PO DAILY #30 tab 07/19/17 Fluconazole [Diflucan] 100 mg PO DAILY #4 tab 07/19/17 Insulin Glargine,Hum.rec.anlog [Basaglar Kwikpen U-100] 50 unit SQ DAILY #1 insuln.pen 07/19/17 Metoprolol Tartrate [Lopressor (beta oneal)] 50 mg PO BID #60 tab 07/19/17 Tamsulosin HCl [Flomax] 0.4 mg PO DAILY@1730 #30 cap 07/19/17 The following prescriptions were given: Aspirin [Aspirin, Baby] 81 mg PO DAILY@0800 #30 tab.chew Atorvastatin Calcium [Lipitor] 40 mg PO QHS #30 tab Clopidogrel Bisulfate [Plavix] 75 mg PO DAILY #30 tab Fluconazole [Diflucan] 100 mg PO DAILY #4 tab Insulin Glargine,Hum.rec.anlog [Basaglar Kwikpen U-100] 50 unit SQ DAILY #1 insuln.pen Tamsulosin HCl [Flomax] 0.4 mg PO DAILY@1730 #30 cap Metoprolol Tartrate [Lopressor (beta oneal)] 50 mg PO BID #60 tab Calcium Acetate [Phoslo Gel Cap] 667 mg PO TIDCM #90 cap Primary Care Physician: Skye Godoy MD [Primary Care Provider] - Please follow up with your Primary Care Physician in: 1 Week Please Follow Up With: Marissa Smith NP-C - Endocrinology When: As scheduled, 08/15/17 Please Follow Up With: Sriarm Case MD - Cardiology When: 1-2 Weeks Please Follow Up With: Светлана Abreu DO - Nephrology When: 1 Week Please Follow Up With: Jose Carlos Bryan MD - Urology When: 3-5 Days Proposed Discharge Date: 07/19/17
--- NOTE | 2017-07-19 11:41 | PCM.DC.SUM ---
<Krista St - Last Filed: 07/19/17 12:34> Discharge Date and Diagnosis Date of Admission: 07/10/17 Date of Discharge: 07/19/17 - Primary Discharge Diagnosis Active and Suspected Problems 1. NSTEMI 2. Ischemic cardiomyopathy 3. Type 2 diabetes mellitus, uncontrolled 4. Acute cystitis secondary to ike albicans-suspected secondary to #3 5. Acute on chronic kidney disease stage IV-suspected secondary to urinary retention as well as underlying diabetic nephropathy. 6. Mild hyponatremia-resolved. 7. Hyperkalemia-resolved. 8. Severe protein calorie malnutrition - Secondary Discharge Diagnosis Chronic Problems Hypertension (Chronic) Type 2 diabetes mellitus (Chronic) Tobacco dependence Hospital Course and Treatment Imaging Results: Diagnostic Data Chest X-Ray 07/10/17 14:18 IMPRESSION: Hyperinflation. The lungs are clear. Electronically Signed: David Flores MD at 14:46 EST Tel [phone], Service support , Renal Ultrasound 07/13/17 10:37 IMPRESSION: Both kidneys are normal in size and echogenicity without hydronephrosis. Incidentally noted is a right pleural effusion. Electronically Signed: Radha Santiago MD at 17:34 EST Tel Direct: [phone], Service support , Abdomen Ultrasound 07/17/17 09:59 IMPRESSION: Moderate ascites. Right pleural effusion. Electronically Signed: Maurisio Harper MD at 18:56 EDT , Service support , Dr. Abreu- Nephrology Dr. Case- Cardiology Dr. Nickerson- ID Operations: None Procedures: 2-D Echocardiogram, Cardiac catheterization Summary of Care Provided: The patient is a 62 year old F admitted 07/10/2017 due to not feeling well. She has not seen a doctor in over 20 years. She was previously diagnosed with hypertension and type 2 diabetes mellitus which she was not on a medication regimen. 1. NSTEMI-cardiac catheterization 07/16/2017 which demonstrated the left main coronary artery with mild disease, left anterior descending artery with severe proximal to mid segment disease and mild to moderate distal disease, dominant left circumflex artery with proximal 70-80% stenosis, first obtuse marginal branch with 70-80% proximal stenosis, nondominant right coronary artery with no significant stenosis, EF30%. Patient will likely require CABG in the future. In the meantime she will be managed medically and continue outpatient follow-up with cardiology. She will continue aspirin, statin, Plavix, metoprolol. Recommend ARB in future when renal function is improved. RADHA inhibitor not initiated due to kidney function. 2. Acute on chronic kidney disease stage IV-suspected secondary to urinary retention as well as underlying diabetic nephropathy. Improving. Patient was started on Flomax. Dr. Abreu was consulted who she will continue outpatient follow-up. Renal ultrasound showed no hydronephrosis. Abdominal ultrasound showed moderate ascites. Patient continues to have urinary retention. She was instructed to straight cath as needed at discharge. She will follow-up with urology, Dr. Bryan in 3-5 days. 3. Ischemic cardiomyopathy-echocardiogram showed an EF of 30%, mild mitral valve insufficiency, pulmonary artery systolic pressure 31 mmHg, moderate severe segmental systolic dysfunction. Treatment follow-up as noted above. Patient has lower extremity edema and ascites. Diuresis deferred until renal function improves. 4. Type 2 diabetes mellitus, uncontrolled-hemoglobin A1c 14.9 on admission. Patient will be discharged on Basaglar 50 units daily. Patient was on Levemir 25 units twice daily during admission and glucose well controlled with this regimen. She will follow-up with WILMAN smith as outpatient. 5. Acute cystitis secondary to ike albicans-suspected secondary to #3. Infectious disease consulted. Patient will continue fluconazole for a total of 7 days of treatment. 6. Mild hyponatremia-resolved. 7. Hyperkalemia-resolved. 8. Severe protein calorie malnutrition 9. Hypertension-stable, continue metoprolol. 10. Tobacco dependence-patient has smoked for approximately 40 years, 1 pack per day. Encourage smoking cessation. General: Alert, Oriented x3, Cooperative HEENT: Atraumatic, PERRLA, EOMI, Normocephalic Neck: Supple, No JVD, Negative Carotid Bruits Lungs: Clear to auscultation, Normal air movement Cardiovascular: Regular rate, No murmurs Abdomen: Bowel Sounds Present, Soft, Non Tender Extremities: Capillary Refill Less than 3 Seconds, +2 pitting edema bilateral lower extremities, ascites Skin: No rashes, No breakdown Musculoskeletal: No Tenderness to Palpation of Joints or Extremities Neurological: Cranial nerves II-XII grossly intact Psych/Mental Status: Normal Affect, Appropriate Patient seen and examined prior to discharge. Physical assessment as noted above. Patient is stable for discharge home with recommendations as noted above. This patient was seen by NICHOLAS Toledo under the supervision of Dr. Hairston. Discharge Diet: Low fat/ Low Cholesterol, Carb Control Diet Discharge Activity: Return to Normal Activity Call your doctor if you observe: Inability to urinate, Shortness of breath, Dizziness, Fainting spells, Chest pain, Increased palpitations (irregular heartbeat) Home Medications: Medications to take at Discharge Aspirin [Aspirin, Baby] 81 mg PO DAILY@0800 #30 tab.chew 07/19/17 Atorvastatin Calcium [Lipitor] 40 mg PO QHS #30 tab 07/19/17 Calcium Acetate [Phoslo Gel Cap] 667 mg PO TIDCM #90 cap 07/19/17 Clopidogrel Bisulfate [Plavix] 75 mg PO DAILY #30 tab 07/19/17 Fluconazole [Diflucan] 100 mg PO DAILY #4 tab 07/19/17 Insulin Glargine,Hum.rec.anlog [Basaglar Kwikpen U-100] 50 unit SQ DAILY #1 insuln.pen 07/19/17 Metoprolol Tartrate [Lopressor (beta oneal)] 50 mg PO BID #60 tab 07/19/17 Tamsulosin HCl [Flomax] 0.4 mg PO DAILY@1730 #30 cap 07/19/17 Following Prescrptions Were Given to Patient: Aspirin [Aspirin, Baby] 81 mg PO DAILY@0800 #30 tab.chew Atorvastatin Calcium [Lipitor] 40 mg PO QHS #30 tab Clopidogrel Bisulfate [Plavix] 75 mg PO DAILY #30 tab Fluconazole [Diflucan] 100 mg PO DAILY #4 tab Insulin Glargine,Hum.rec.anlog [Basaglar Kwikpen U-100] 50 unit SQ DAILY #1 insuln.pen Tamsulosin HCl [Flomax] 0.4 mg PO DAILY@1730 #30 cap Metoprolol Tartrate [Lopressor (beta oneal)] 50 mg PO BID #60 tab Calcium Acetate [Phoslo Gel Cap] 667 mg PO TIDCM #90 cap Primary Care Physician: Skye Godoy MD [Primary Care Provider] - Please Follow Up With: Marissa Smith, WARRANT SERVER-C When: As scheduled Please Follow Up With: Sriram Case MD Please Follow Up With: Светлана Abreu DO Patient Instructions: ED Retention Urinary Female Disposition: Home Minutes spent on discharge:: 35 Patient Condition:: Stable Meaningful Use Info Meaningful Use Diagnoses (Choose all that apply): None applicable <Danis Hairston - Last Filed: 07/19/17 14:13> Discharge Date and Diagnosis - Secondary Discharge Diagnosis Chronic Problems Hypertension (Chronic) Type 2 diabetes mellitus (Chronic) Hospital Course and Treatment Summary of Care Provided: In brief, patient is a 72-year-old female with poorly controlled diabetes who presented with generalized weakness and non specific symptoms found to have hyperosmolar nonketotic state in addition to elevated troponin consistent with NSTEMI. Underwent left heart catheterization on 07/16/[address] Sriram Case was found to have severe multivessel disease for which cardiology recommended optimization of medical therapy with possible consideration for CABG when medically stable. Patient was offered the option of going to longterm facility to continue with her recuperation she declined. She was also offered outpatient therapy from home she declined as well. Assessment: 1. Diabetes mellitus type 2 presented with hyperosmolar nonketotic state is resolved 2. Acute non-STEMI 3. Coronary artery disease; multivessel severe disease 4. Chronic Kidney disease stage III 5. Ischemic cardiac myopathy with an ejection fraction of 30% 6. Hyponatremia 7. Secondary to anemia of chronic disorder 8. Hypertension 9. CAUTI 10. Candiduria ; consultation placed to infectious disease Hospital course as elicited above by Krista St Total time spent on discharge process 35 minutes Code Visit Inpatient E&M: [id number] Disch Hosp
--- NOTE | 2017-07-19 11:53 | DS.PCM_ITS ---
<Krista St - Last Filed: 07/19/17 12:34> Discharge Date and Diagnosis Date of Admission: 07/10/17 Date of Discharge: 07/19/17 - Primary Discharge Diagnosis Active and Suspected Problems 1. NSTEMI 2. Ischemic cardiomyopathy 3. Type 2 diabetes mellitus, uncontrolled 4. Acute cystitis secondary to ike albicans-suspected secondary to #3 5. Acute on chronic kidney disease stage IV-suspected secondary to urinary retention as well as underlying diabetic nephropathy. 6. Mild hyponatremia-resolved. 7. Hyperkalemia-resolved. 8. Severe protein calorie malnutrition - Secondary Discharge Diagnosis Chronic Problems Hypertension (Chronic) Type 2 diabetes mellitus (Chronic) Tobacco dependence Hospital Course and Treatment Imaging Results: Diagnostic Data Chest X-Ray 07/10/17 14:18 IMPRESSION: Hyperinflation. The lungs are clear. Electronically Signed: David Flores MD at 14:46 EST Tel [phone], Service support , Renal Ultrasound 07/13/17 10:37 IMPRESSION: Both kidneys are normal in size and echogenicity without hydronephrosis. Incidentally noted is a right pleural effusion. Electronically Signed: Radha Santiago MD at 17:34 EST Tel Direct: [phone], Service support , Abdomen Ultrasound 07/17/17 09:59 IMPRESSION: Moderate ascites. Right pleural effusion. Electronically Signed: Maurisio Harper MD at 18:56 EDT , Service support , Dr. Abreu- Nephrology Dr. Case- Cardiology Dr. Nickerson- ID Operations: None Procedures: 2-D Echocardiogram, Cardiac catheterization Summary of Care Provided: The patient is a 62 year old F admitted 07/10/2017 due to not feeling well. She has not seen a doctor in over 20 years. She was previously diagnosed with hypertension and type 2 diabetes mellitus which she was not on a medication regimen. 1. NSTEMI-cardiac catheterization 07/16/2017 which demonstrated the left main coronary artery with mild disease, left anterior descending artery with severe proximal to mid segment disease and mild to moderate distal disease, dominant left circumflex artery with proximal 70-80% stenosis, first obtuse marginal branch with 70-80% proximal stenosis, nondominant right coronary artery with no significant stenosis, EF30%. Patient will likely require CABG in the future. In the meantime she will be managed medically and continue outpatient follow-up with cardiology. She will continue aspirin, statin, Plavix, metoprolol. Recommend ARB in future when renal function is improved. RADHA inhibitor not initiated due to kidney function. 2. Acute on chronic kidney disease stage IV-suspected secondary to urinary retention as well as underlying diabetic nephropathy. Improving. Patient was started on Flomax. Dr. Abreu was consulted who she will continue outpatient follow-up. Renal ultrasound showed no hydronephrosis. Abdominal ultrasound showed moderate ascites. Patient continues to have urinary retention. She was instructed to straight cath as needed at discharge. She will follow-up with urology, Dr. Bryan in 3-5 days. 3. Ischemic cardiomyopathy-echocardiogram showed an EF of 30%, mild mitral valve insufficiency, pulmonary artery systolic pressure 31 mmHg, moderate severe segmental systolic dysfunction. Treatment follow-up as noted above. Patient has lower extremity edema and ascites. Diuresis deferred until renal function improves. 4. Type 2 diabetes mellitus, uncontrolled-hemoglobin A1c 14.9 on admission. Patient will be discharged on Basaglar 50 units daily. Patient was on Levemir 25 units twice daily during admission and glucose well controlled with this regimen. She will follow-up with WILMAN smith as outpatient. 5. Acute cystitis secondary to ike albicans-suspected secondary to #3. Infectious disease consulted. Patient will continue fluconazole for a total of 7 days of treatment. 6. Mild hyponatremia-resolved. 7. Hyperkalemia-resolved. 8. Severe protein calorie malnutrition 9. Hypertension-stable, continue metoprolol. 10. Tobacco dependence-patient has smoked for approximately 40 years, 1 pack per day. Encourage smoking cessation. General: Alert, Oriented x3, Cooperative HEENT: Atraumatic, PERRLA, EOMI, Normocephalic Neck: Supple, No JVD, Negative Carotid Bruits Lungs: Clear to auscultation, Normal air movement Cardiovascular: Regular rate, No murmurs Abdomen: Bowel Sounds Present, Soft, Non Tender Extremities: Capillary Refill Less than 3 Seconds, +2 pitting edema bilateral lower extremities, ascites Skin: No rashes, No breakdown Musculoskeletal: No Tenderness to Palpation of Joints or Extremities Neurological: Cranial nerves II-XII grossly intact Psych/Mental Status: Normal Affect, Appropriate Patient seen and examined prior to discharge. Physical assessment as noted above. Patient is stable for discharge home with recommendations as noted above. This patient was seen by NICHOLAS Toledo under the supervision of Dr. Hairston. Discharge Diet: Low fat/ Low Cholesterol, Carb Control Diet Discharge Activity: Return to Normal Activity Call your doctor if you observe: Inability to urinate, Shortness of breath, Dizziness, Fainting spells, Chest pain, Increased palpitations (irregular heartbeat) Home Medications: Medications to take at Discharge Aspirin [Aspirin, Baby] 81 mg PO DAILY@0800 #30 tab.chew 07/19/17 Atorvastatin Calcium [Lipitor] 40 mg PO QHS #30 tab 07/19/17 Calcium Acetate [Phoslo Gel Cap] 667 mg PO TIDCM #90 cap 07/19/17 Clopidogrel Bisulfate [Plavix] 75 mg PO DAILY #30 tab 07/19/17 Fluconazole [Diflucan] 100 mg PO DAILY #4 tab 07/19/17 Insulin Glargine,Hum.rec.anlog [Basaglar Kwikpen U-100] 50 unit SQ DAILY #1 insuln.pen 07/19/17 Metoprolol Tartrate [Lopressor (beta oneal)] 50 mg PO BID #60 tab 07/19/17 Tamsulosin HCl [Flomax] 0.4 mg PO DAILY@1730 #30 cap 07/19/17 Following Prescrptions Were Given to Patient: Aspirin [Aspirin, Baby] 81 mg PO DAILY@0800 #30 tab.chew Atorvastatin Calcium [Lipitor] 40 mg PO QHS #30 tab Clopidogrel Bisulfate [Plavix] 75 mg PO DAILY #30 tab Fluconazole [Diflucan] 100 mg PO DAILY #4 tab Insulin Glargine,Hum.rec.anlog [Basaglar Kwikpen U-100] 50 unit SQ DAILY #1 insuln.pen Tamsulosin HCl [Flomax] 0.4 mg PO DAILY@1730 #30 cap Metoprolol Tartrate [Lopressor (beta oneal)] 50 mg PO BID #60 tab Calcium Acetate [Phoslo Gel Cap] 667 mg PO TIDCM #90 cap Primary Care Physician: Skye Godoy MD [Primary Care Provider] - Please Follow Up With: Marissa Smith, [employer] MAKING MACHINE OPERATOR-C When: As scheduled Please Follow Up With: Sriram Case MD Please Follow Up With: Светлана Abreu DO Patient Instructions: ED Retention Urinary Female Disposition: Home Minutes spent on discharge:: 35 Patient Condition:: Stable Meaningful Use Info Meaningful Use Diagnoses (Choose all that apply): None applicable <Danis Hairston - Last Filed: 07/19/17 14:13> Discharge Date and Diagnosis - Secondary Discharge Diagnosis Chronic Problems Hypertension (Chronic) Type 2 diabetes mellitus (Chronic) Hospital Course and Treatment Summary of Care Provided: In brief, patient is a 72-year-old female with poorly controlled diabetes who presented with generalized weakness and non specific symptoms found to have hyperosmolar nonketotic state in addition to elevated troponin consistent with NSTEMI. Underwent left heart catheterization on 07/16/[address] Sriram Case was found to have severe multivessel disease for which cardiology recommended optimization of medical therapy with possible consideration for CABG when medically stable. Patient was offered the option of going to shelter facility to continue with her recuperation she declined. She was also offered outpatient therapy from home she declined as well. Assessment: 1. Diabetes mellitus type 2 presented with hyperosmolar nonketotic state is resolved 2. Acute non-STEMI 3. Coronary artery disease; multivessel severe disease 4. Chronic Kidney disease stage III 5. Ischemic cardiac myopathy with an ejection fraction of 30% 6. Hyponatremia 7. Secondary to anemia of chronic disorder 8. Hypertension 9. CAUTI 10. Candiduria ; consultation placed to infectious disease Hospital course as elicited above by Krista St Total time spent on discharge process 35 minutes Code Visit Inpatient E&M: [id number] Disch Hosp
[2017-07-19 12:26] LABS: Bedside Glucose 142 mg/dL (70-110)
[2017-07-19 12:35] LABS: Total Protein, Ur 1180.9 mg/dL (Not Estab.)
== END 2017-07-19 17:00 | disposition home or self-care (01) | DRG 121 ==
LOC: ED 14:09 → ICU 16:05 → PCU 07-12 11:28
PROVIDERS: Internal Medicine; Internal Medicine Cardiovascular Disease; Internal Medicine Nephrology; Physician Assistant; Admitting Provider Internal Medicine; Emergency Provider Emergency Medicine; Family Provider Family Medicine; PCP Family Medicine; Visit Provider Internal Medicine
DX: I21.4 Non-ST elevation (NSTEMI) myocardial infarction (principal); N17.9 Acute kidney failure, unspecified; E43 Unspecified severe protein-calorie malnutrition; E11.22 Type 2 diabetes mellitus with diabetic chronic kidney disease; R18.8 Other ascites; E11.65 Type 2 diabetes mellitus with hyperglycemia; E87.1 Hypo-osmolality and hyponatremia; N18.4 Chronic kidney disease, stage 4 (severe); E86.0 Dehydration; E87.5 Hyperkalemia; R33.9 Retention of urine, unspecified; E11.319 Type 2 diabetes mellitus with unspecified diabetic retinopathy without macular edema; B37.41 Candidal cystitis and urethritis; F17.210 Nicotine dependence, cigarettes, uncomplicated; I12.9 Hypertensive chronic kidney disease with stage 1 through stage 4 chronic kidney disease, or unspecified chronic kidney disease; I25.5 Ischemic cardiomyopathy; Z68.23 Body mass index [BMI] 23.0-23.9, adult; I25.10 Atherosclerotic heart disease of native coronary artery without angina pectoris; Z91.19 Patient's noncompliance with other medical treatment and regimen
CPT/HCPCS: 36415; 71045; 76705; 76770; 80048; 80061; 80069; 80076; 81001; 81002; 82009; 82570; 82575; 82962; 83036; 84156; 84165; 84166; 84300; 84484; 85025; 85027; 85610; 85730; 86038; 86225; 86235; 87086; 87088; 87641; 93005; 93306; 93454; 97110; 97116; 97162; 97166; 97530; 97803; 99152; 99153; 99285; J7030; A4216; C1769; J1940; Q9967

== ENCOUNTER 2017-07-31 10:28 | Emergency (ER) | payer MEDICAID, SELFPAY ==
[2017-07-31] VITALS (7 sets, daily range): BP systolic 93–138; BP diastolic 58–79; PULSE 58–64; RESP 16–21; TEMP 36.4; O2SAT 95–98; BMI 33.5
--- NOTE | 2017-07-31 10:48 | RAD_ITS ---
STUDY: X-RAY CHEST REASON FOR EXAM: Female, 62 years old. Cough, shortness of breath TECHNIQUE: A single frontal view of the chest was obtained. COMPARISON: July 10, 2017 FINDINGS: The lungs are underaerated. There are patchy opacities in the left lung base. There are increased markings in the right lung base. There is blunting of both costophrenic angles, left greater than right. There is mild enlargement of the cardiac silhouette. The mediastinum and hilar regions are unremarkable. The central vessels are prominent. There is atherosclerotic calcification of the thoracic aorta. There are diffuse degenerative changes of the visualized spine. There are degenerative changes in both shoulders. There is no demonstrated abnormality of the visualized upper abdomen. RAD/Chest 1 View (Portable) IMPRESSION: There is mild enlargement of the cardiac silhouette with mild edema and bilateral effusions, left greater than right. There is minimal bibasilar atelectasis. Consolidation cannot be excluded on the left side. Electronically Signed: Radha Santiago MD at 11:30 EDT Tel Direct: [phone], Service support ,
--- NOTE | 2017-07-31 10:48 | EKG12_ITS ---
Test Reason : CHF Blood Pressure : / mmHG Vent. Rate : 061 BPM Atrial Rate : 061 BPM P-R Int : 142 ms QRS Dur : 094 ms QT Int : 412 ms P-R-T Axes : 061 015 079 degrees QTc Int : 414 ms Normal sinus rhythm Low voltage QRS Nonspecific T wave abnormality Abnormal ECG Confirmed by BETI BALLESTEROS, NATHAN ([id number]), managing editor MARGARET HUBBARD ([id number]) on 08/02/2017 2:59:44 PM Referred By: PO Confirmed By:NATHAN BANG MD
--- NOTE | 2017-07-31 10:58 | ED.VISSUMM ---
- ER Visit Summary Date of Service: 07/31/17 Chief Complaint: Shortness of breath History of Present Illness: The patient is a 62 F presenting with shortness of breath, leg swelling. She states that shortness of breath has been worsening over the past 1-2 days. She was admitted to the hospital in early July. She was discharged 12 days ago. She states since discharge she has gained 20 pounds. While in the hospital she had a NSTEMI. She had a cardiac cath and was told in the future she will require CABG. She is being medically managed at this time. She does not wear home O2. She complains of dyspnea on exertion. She has seeping from both legs. Denies fever. Denies chest pain. Physical Examination: Vitals are stable. Patient is afebrile. Alert no acute distress. HEENT exam is unremarkable. Neck is supple. Lungs are clear and equal bilaterally. Heart is regular rate and rhythm. Abdomen is soft nontender distended Extremities symmetric edema with bilateral wounds and seeping drainage Skin is warm and dry. No focal neurologic deficit. Remainder of exam is unremarkable. Emergency Department Course and Treatment: EKG is sinus rhythm rate is 61 with no acute ischemic changes. Chest x-ray shows cardiomegaly, bilateral effusions. CBC is white count 11.4, hemoglobin 9.8. Bun 43, creatinine 0.54. This is improved from previous. She was given Lasix IV. Urinalysis shows over 100 white cells, positive leukocytes, positive nitrates. Patient is given Rocephin IV. Troponin is negative. BNP 688.8. Discussed with Dr. Beasley. He feels patient should be transferred to a hospital which can provide her with a CABG. Patient prefers to go to [facility]. Discussed with [facility] for transfer. Disposition: Transfer [facility] Impression: CHF, fluid overload, UTI This note was generated with [employer] dictation software. It may contain incorrect words, spelling, and punctuation that were not noted in review of the chart prior to signing ED Disposition - Plan for ED Patient: Chief Complaint: Shortness of Breath Referrals: Skye Godoy MD [Primary Care Provider] -
[2017-07-31 11:14] LABS: Mucous, Urine 0 SEEN /hpf (<or=2+)
[2017-07-31 11:16] LABS: Color, Urine Yellow (Yellow); Glucose, Dipstick 50 mg/dl (Normal); Ketone-Dipstick Negative (Negative); Leukocyte Esterase-Dipstick 500 /ul (Negative); Nitrite-Dipstick Positive (Negative); Occult Blood-Urine 50 /ul (Negative); Protein-Dipstick 500 mg/dl (Negative); Specific Gravity, Urine 1.015 (1.002-1.030); Urine Bilirubin Dipstick Negative (Negative); Urine Clarity Sl. Cloudy (Clear); Urine Urobilinogen Normal (Normal)
[2017-07-31 11:17] LABS: Absolute Lymphocyte Count 1.23 X10^3/ul (0.83-4.51); Basophil# 0.02 X10^3/uL; Basophil% 0.2 % (0-1); Eosinophil# 0.19 X10^3/uL; Eosinophils% 1.7 % (0-5); Hematocrit 30.9 % (37-47); Hemoglobin 9.8 g/dl (12.0-15.0); Lymphocyte # 1.23 X10^3/ul (4.0); Lymphocyte % 10.8 % (19-41); Mean Corp Hgb Conc 31.7 g/gl (32-36); Mean Corpuscular Hgb 31.9 pg (27.0-32.0); Mean Corpuscular Volume 100.7 fL (81-99); Mean Platelet Vol. 9.2 fl (6.2-12.0); Monocyte# 0.91 X10^3/uL; Neutrophil # 9.03 X10^3/uL (2.7-7.7); Neutrophil % 78.9 % (47-70); Platelet Count 301 K/mm3 (150-450); RBC Distribution Width CV 13.9 % (11.6-14.6); RBC Distribution Width SD 49.5 fl (35.1-43.9); Red Blood Count 3.07 M/mm3 (4.2-5.4); White Blood Count 11.4 K/mm3 (4.4-11.0)
[2017-07-31 11:18] LABS: POSITIVE COUNT NO; POSITIVE DIFFERENTIAL NO; POSITIVE MORPHOLOGY NO
[2017-07-31 11:25] LABS: Red Blood Cells-Urine 0-5 SEEN /hpf (0-5); White Blood Cells >100 SEEN /hpf (0-5)
[2017-07-31 11:25] LABS: Anion Gap 3 (5-15); BUN 43 mg/dL (7-18); BUN/Creat Ratio 80.1 RATIO (10-20); Calcium,Total 8.4 mg/dL (8.5-10.1); Chloride 112 mmol/L (98-107); Creatinine, Serum 0.54 mg/dL (0.55-1.02); EST Glomerular Filtration Rate 122 mL/min (>60); Est Glom Filt Rate - Afr Amer 147 mL/min (>60); Estimated Creatinine Clearance 76.59 ml/min; Glucose 143 mg/dL (74-106); Potassium 4.3 mmol/L (3.5-5.1); Sodium Level 144 mmol/L (136-145)
[2017-07-31 11:26] LABS: Bacteria 3+ /hpf (None Seen); Squamous Epithelial Cells - UA 5-10 SEEN /hpf (5-10)
[2017-07-31 11:43] LABS: BNP,B-Type NATRIURETIC PEPTIDE 688.8 pg/mL (0-100)
[2017-07-31] MEDS: Ceftriaxone 1 GM/50 mL Premix x1 IV (12:35)
[2017-07-31] MEDS: Furosemide 40 MG/4 ML Vial IV (12:35)
--- NOTE | 2017-07-31 12:38 | ED.RN ---
pt has swelling and fluid discharge from bl le. pt has blisters that are full and ones that are open and seeping.
--- NOTE | 2017-07-31 14:13 | ED.RN ---
[facility] IS LEAVING AND WOULD LIKE A CALL WITH ROOM NUMBER AT [facility]. CHAITANYA [phone], YARA [phone]
--- NOTE | 2017-07-31 14:35 | PN_ITS ---
Subjective: Outpatient consultation in ED concerning hospital placement: 62-year-old female who is admitted approximately 2 weeks ago with that time had severely uncontrolled diabetes, acute kidney injury, non-ST segment elevation myocardial infarction, congestive heart failure, who underwent heart catheterization which revealed 70-80% stenosis of 2 arteries and an ejection fraction of 30%. At that time it is recommended that she be discharged and be worked up for possible future CABG procedure. The patient returned to the emergency room today short of breath and with significant bilateral lower extremity edema. She reported a gain of 20 pounds since discharge. She is felt to be in acute systolic CHF exacerbation from her CAD and cardiomyopathy. Chest x-ray was consistent with CHF, BNP was significantly elevated, she also had a urinalysis consistent with urinary tract infection. Troponin was negative. The case was discussed with Dr. Case from cardiology who indicated that the patient's condition was due to her underlying coronary disease which would need treated with CABG procedure at an outside facility. The patient was agreeable to transfer to a different hospital to undergo this procedure. - Physical Exam General: Alert, Oriented x3, Cooperative HEENT: Atraumatic, PERRLA, EOMI, Normocephalic Neck: Supple, No JVD, Negative Carotid Bruits Lungs: Rales, Wheezes Cardiovascular: Regular rate, No murmurs Abdomen: Bowel Sounds Present, Soft, Non Tender Extremities: No edema, Capillary Refill Less than 3 Seconds, Edema - 3+ pitting edema with clear fluid filled bullae on shins Skin: No rashes, No breakdown Musculoskeletal: No Tenderness to Palpation of Joints or Extremities Neurological: Cranial nerves II-XII grossly intact Psych/Mental Status: Normal Affect, Appropriate, Alert and oriented to time, place, person, mood and affect Vital Signs Temp Pulse Resp BP Pulse Ox 97.6 F L 61 16 124/66 H 97 07/31/17 10:29 07/31/17 13:14 07/31/17 13:14 07/31/17 13:14 07/31/17 13:14 Oxygen Flow Rate (L/min) 2 Oxygen Delivery Method Room Air Weight: 78.046 kg Body Mass Index (BMI) 33.5 Finger Stick Blood Glucose 600 Laboratory Tests Past 24 Hrs 07/31/17 07/31/17 07/31/17 10:58 10:58 10:58 WBC 11.4 H RBC 3.07 L Hgb 9.8 L Hct 30.9 L MCV 100.7 H MCH 31.9 MCHC 31.7 L RDW 13.9 RDW Differential 49.5 H Plt Count 301 MPV 9.2 Immature Gran % (Auto) 0.400 Neut % (Auto) 78.9 H Lymph % (Auto) 10.8 L [place] % (Auto) 8.0 Eos % (Auto) 1.7 Baso % (Auto) 0.2 Absolute Neuts (auto) 9.0 H Absolute Lymphs (auto) 1.23 Total Counted Not Reportable Sodium 144 Potassium 4.3 Chloride 112 H Carbon Dioxide 29.0 Anion Gap 3 L BUN 43 H Creatinine 0.54 L Estim Creat Clear Calc 76.59 Est GFR (MDRD) Af Amer 147 Est GFR (MDRD) Non-Af 122 BUN/Creatinine Ratio 80.1 H Glucose 143 H Calcium 8.4 L Troponin I < 0.02 B-Natriuretic Peptide 688.8 H Urine Color Urine Clarity Urine pH Ur Specific [place] Urine Protein Urine Glucose (UA) Urine Ketones Urine Occult Blood Urine Nitrite Urine Bilirubin Urine Urobilinogen Ur Leukocyte Esterase Urine RBC Urine WBC Ur Squamous Epith Cells Urine Bacteria Urine Mucus 07/31/17 11:10 WBC RBC Hgb Hct MCV MCH MCHC RDW RDW Differential Plt Count MPV Immature Gran % (Auto) Neut % (Auto) Lymph % (Auto) [place] % (Auto) Eos % (Auto) Baso % (Auto) Absolute Neuts (auto) Absolute Lymphs (auto) Total Counted Sodium Potassium Chloride Carbon Dioxide Anion Gap BUN Creatinine Estim Creat Clear Calc Est GFR (MDRD) Af Amer Est GFR (MDRD) Non-Af BUN/Creatinine Ratio Glucose Calcium Troponin I B-Natriuretic Peptide Urine Color Yellow Urine Clarity Sl. Cloudy Urine pH 6.0 Ur Specific [place] 1.015 Urine Protein 500 H Urine Glucose (UA) 50 H Urine Ketones Negative Urine Occult Blood 50 H Urine Nitrite Positive H Urine Bilirubin Negative Urine Urobilinogen Normal Ur Leukocyte Esterase 500 H Urine RBC 0-5 SEEN Urine WBC >100 SEEN Ur Squamous Epith Cells 5-10 SEEN Urine Bacteria 3+ Urine Mucus 0 SEEN Medical Necessity - Tobacco Use Smoking Status: Former smoker Assessment/Plan 1. Acute systolic CHF exacerbation 2/2 underlying CAD and Cardiomyopathy - NSTEMI about 2 weeks ago. Cath demonstrated need for CABG. Transfer to facility with CABG ability. Pt requests [facility] as family work there. She has been given IV lasix in the ER which is appropriate. She has gained about 20 pounds since admission. She had significant FIONA on last admission which is greatly improved. EF 30%. Negative troponin and BNP 688. CXR c/w CHF. 2. Recent FIONA, CKD unclear stage - felt to be stage III at last admission however GFR has dramatically improved. pt was followed by Dr. Abreu from Nephrology. Her renal function has improved significantly since prior admission. GFR now 3. UTI - probably catheter associated. Received rocephin in ER. Last admission she was treated with fluconazole for ike cystitis per ID consult. Follow final culture. 4. DMt2 - was not treated prior to last admission, now on long acting insulin only. A1C was 14.9 5. Mildly macrocytic anemia - not requiring transfusion at this time. Mildly decreased since last admission. Dispo: transfer for CABG This patient was seen by Alejo Guajardo PA-C under the supervision of Doctor Chavez.
--- NOTE | 2017-07-31 16:36 | NURSING ---
CALLING [facility] ABOUT BED STATUS
--- NOTE | 2017-07-31 16:40 | NURSING ---
PATIENT IS 3RD ON LIST, BUT [facility] IS STILL DISCHARGING PATIENTS
--- NOTE | 2017-07-31 17:29 | NURSING ---
[place], [facility] ROOM [id number] REPORT [phone]
--- NOTE | 2017-07-31 17:36 | NURSING ---
CALLED [facility] [place]
--- NOTE | 2017-07-31 18:30 | ED.RN ---
PT AWARE WAITING ON MEDS FOR [facility] ORDERS. PT WAS WANTING TO TAKE HOME MEDS
== END 2017-07-31 18:50 | disposition short-term general hospital (02) ==
PROVIDERS: Emergency Provider Emergency Medicine; Family Provider Family Medicine; PCP Family Medicine
DX: I50.9 Heart failure, unspecified (principal); N39.0 Urinary tract infection, site not specified; I25.2 Old myocardial infarction; E11.22 Type 2 diabetes mellitus with diabetic chronic kidney disease; I13.0 Hypertensive heart and chronic kidney disease with heart failure and stage 1 through stage 4 chronic kidney disease, or unspecified chronic kidney disease; N18.9 Chronic kidney disease, unspecified; E78.00 Pure hypercholesterolemia, unspecified; Z90.49 Acquired absence of other specified parts of digestive tract; Z90.710 Acquired absence of both cervix and uterus; Z79.82 Long term (current) use of aspirin; Z79.02 Long term (current) use of antithrombotics/antiplatelets; Z79.4 Long term (current) use of insulin; Z79.899 Other long term (current) drug therapy
CPT/HCPCS: 71045; 80048; 81001; 83880; 84484; 85025; 87086; 87088; 87186; 93005; 96365; 96375; 99285; J7030; A4216; J1940